=== PATIENT | female | born 1960 | race Caucasian/White ===

== ENCOUNTER 2020-06-21 15:44 | Outpatient (CLI) | payer BC, SELFPAY ==
--- NOTE | ~2020-06-21 | CT_ITS ---
EXAMINATION: CT sinus wo con EXAM DATE: 06/21/2020 16:23 INDICATION: M27.40 - Unspecified cyst of jaw on roof of mouth, looking for connection to sinus cavity . TECHNIQUE: Spiral CT of the sinuses was acquired in the axial plane. Coronal and sagittal reformatte d images were also reviewed. The dose-length product (DLP) for this examination was 288.76 mGy-cm. Iterative reconstruction (ASIR) was used as dose reduction technique. There is no prior study for co mparison. FINDINGS: Focal ovoid mass lesion left of midline just below the left maxilla measuring 2.2 x 1.5 cm, without any evidence of maxilla bone remodeling or invasion. Frontal sinuses are underdeveloped. T he sinuses are well aerated. The ostiomeatal units are patent. There is no sinus wall thickening. There is mild rightward nasal septal deviation. The mastoid air cells and middle ears are well ae rated. External auditory canals are patent. The orbits and visualized soft tissues are unremarkab le. IMPRESSION: Ovoid mass just below left maxilla without subjacent osseous change. Reviewed, dictated and finalized at location A. IMPRESSION: Ovoid mass just below left maxilla without subjacent osseous change .
== END 2020-06-21 15:45 | disposition home or self-care (01) ==
PROVIDERS: PCP Nurse Practitioner Family; Visit Provider Otolaryngology
DX: M27.40 Unspecified cyst of jaw (principal)
CPT/HCPCS: 70486

== ENCOUNTER 2020-07-10 01:08 | Outpatient (CLI) | payer BC, SELFPAY ==
[2020-07-10 19:47] LABS: SARS-CoV-2 RNA PCR Negative
== END 2020-07-10 01:09 | disposition home or self-care (01) ==
LOC: ANHCOVIDDT 01:08
PROVIDERS: PCP Nurse Practitioner Family; Visit Provider Otolaryngology
DX: Z01.818 Encounter for other preprocedural examination (principal); Z20.828 Contact with and (suspected) exposure to other viral communicable diseases
CPT/HCPCS: 87635; C9803; U0003

== ENCOUNTER 2020-07-10 08:58 | Outpatient (CLI) | payer BC, SELFPAY ==
--- NOTE | 2020-07-10 09:02 | ECG_ITS ---
Measurements Intervals [place] Rate: 73 P: 63 [place]: 155 QRS: 9 QRSD: 93 T: 54 QT: 398 QTc: 440 Interpretive Statements SINUS OR ECTOPIC ATRIAL RHYTHM POOR R WAVE PROGRESSION, ANTERIOR LEADS BORDERLINE ECG Electronically Signed On 07-10-2020 9:30:49 SYSTEMS CHECKOUT MECHANIC by Escobar Adhikari D.O.
== END 2020-07-10 08:59 | disposition home or self-care (01) ==
LOC: ANHSURGERY 09:02
PROVIDERS: PCP Nurse Practitioner Family; Visit Provider Otolaryngology
DX: Z01.818 Encounter for other preprocedural examination (principal); E78.5 Hyperlipidemia, unspecified; R94.31 Abnormal electrocardiogram [ECG] [EKG]
CPT/HCPCS: 93005

== ENCOUNTER 2020-07-13 00:36 | Day surgery (SDC) | payer BC, SELFPAY ==
[2020-07-04 13:34] VITALS: BMI 46.2
--- NOTE | 2020-07-12 16:06 | PM.IMHP ---
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 Recent imaging demonstrates an approximately 2 x 1.5 cm cyst within the maxilla more based on the left than right. The patient presents for operative excision. No new symptoms changes in medical history. Review of Systems Constitutional: Constitutional: Denies fatigue, Denies fever(s) and Denies lethargy Eyes: Eyes: Denies blurry vision and Denies change in vision ENT: Reports as per HPI Cardiovascular: Cardiovascular: Denies chest pain Respiratory: Respiratory: Denies cough Endocrine: Endocrine: Denies fatigue Hematologic/Lymphatic: Hematologic/Lymphatic: Denies easy bleeding, Denies easy bruising and Denies lymphadenopathy Allergic/Immunologic: Allergic/Immunologic: Denies seasonal rhinorrhea [facility] Social History Social History (Updated 06/11/20 @ 09:31 by Traci Tellez [facility]) Smoking packs per day: 1.5 Smoking cigarettes per day: 30.0 Years smoked: 43 Smoking pack-years: 64.50 Smoking status: Current every day smoker Tobacco type: cigarettes Second hand tobacco smoke exposure: Yes Spiritual care concerns: No Meds Home Medications and Allergies Home Medications Medication Instructions Recorded Confirmed Type acetaminophen 500 mg tablet 500 mg PO Q6H PRN 06/11/20 07/04/20 History albuterol sulfate 90 mcg/actuation 1 inh INHALATION Q4H PRN 06/11/20 07/04/20 History aerosol inhaler atorvastatin 20 mg tablet 20 mg PO DAILY 06/11/20 07/04/20 History cholecalciferol (vitamin D3) 125 500 mcg PO DAILY 06/11/20 07/04/20 History mcg (5,000 unit) capsule fluticasone fur. 100 mcg-umeclid 1 inh INHALATION DAILY 06/11/20 07/04/20 History 62.5 mcg-vilant 25 mcg inhalat.powder hyoscyamine sulfate 0.375 mg 0.375 mg PO Q12H 06/11/20 07/04/20 History tablet,extended release,12 hr meloxicam 15 mg tablet 15 mg PO DAILY 06/11/20 07/04/20 History multivitamin,rn-fqbb-[id number] 1 tablet PO DAILY 06/11/20 07/04/20 History tramadol 50 mg tablet 50 mg PO Q4H PRN 06/11/20 07/04/20 History zolpidem 10 mg tablet 10 mg PO HS 06/11/20 07/04/20 History Allergies Allergy/AdvReac Type Severity Reaction Status Date / Time celecoxib Allergy Severe nausea Verified 07/04/20 13:30 Penicillins Allergy Mild hives Verified 07/04/20 13:30 Sulfa (Sulfonamide Allergy Mild Nausea Verified 07/04/20 13:30 Antibiotics) Exam Const: General: cooperative, healthy appearing, comfortable, well developed and alert HENMT: Head: normal to inspection, normocephalic and atraumatic Ears: hearing grossly normal bilaterally, external ears normal, TM's normal bilaterally and EAC's normal General nose exam: Normal external nose present, Normal nares present, No nasal polyps present, Normal nasal mucous membranes and turbinates present and Normal septum present Face and sinus: normal facial exam Mouth: Yes lip normal, Yes tongue normal, Yes oropharynx normal and Yes other ( Left-sided maxillary hard palate cyst lesion) Teeth and gingiva: dentition normal and gingiva normal Throat: posterior oropharynx normal, tonsils normal and uvula midline Eyes: General: appearance normal, both eyes and all related structures Periorbital: periorbital findings normal Eyelids: eyelids normal Conjunctivae: conjunctivae normal Sclera: sclerae normal Neck: Neck: normal visual inspection, full ROM and no lymphadenopathy Thyroid: thyroid normal Lymphatic: no lymphadenopathy noted Resp: Effort & Inspection: normal respiratory effort and able to speak in complete sentences Cardio: Jugular venous distension: no JVD Neuro: Cranial nerves: Yes CN's II-XII intact bilaterally Assessment and Plan Assessment and plan (1) Cyst of maxilla: Code(s): M27.40 - Unspecified cyst of jaw Status: Acute Asse
[2020-07-13 07:26] VITALS: BP 162/96; PULSE 98; RESP 20; TEMP 36.4; O2SAT 96
[2020-07-13] MEDS: LACTATED RINGERS 1,000 ML 30 ML IV CONT (07:45)
--- NOTE | 2020-07-13 07:54 | WPDHPUPDATE1 ---
History and Physical Update Update Date/Time: 07/13/20 07:54 History and Physical has been reviewed, including an updated exam of the patient. There are NO changes in the patient's condition. Risks, benefits, and alternatives have been discussed and questions answered. Patient agrees to proceed with procedure.
--- NOTE | 2020-07-13 08:02 | WPDANESEPPF ---
Anes - Initial Pre Proc Eval Procedure: Operation Date: 07/13/20 09:15 Proposed Procedures p Excision Lesion Hard Palate - Adán Yeung MD Date/Time: 07/13/20 08:02 Surgeon: Adán Yeung MD Pre Op Diagnosis: Lesion Hard Palate Patient Data Age: 59 Gender: F Height: 5 ft 3 in Weight: 117.8 kg Last Vital Signs Temp 36.4 C L 07/13/20 07:26 Pulse 98 07/13/20 07:26 Resp 20 07/13/20 07:26 BP 162/96 H 07/13/20 07:26 Pulse Ox 96 07/13/20 07:26 Allergies Allergy/AdvReac Type Severity Reaction Status Date / Time celecoxib Allergy Severe nausea Verified 07/13/20 07:35 Penicillins Allergy Mild hives Verified 07/13/20 07:35 Sulfa (Sulfonamide Allergy Mild Nausea Verified 07/13/20 07:35 Antibiotics) Home Medications Medication Instructions Recorded Confirmed Type acetaminophen 500 mg tablet 500 mg PO Q6H PRN 06/11/20 07/04/20 History albuterol sulfate 90 mcg/actuation 1 inh INHALATION Q4H PRN 06/11/20 07/04/20 History aerosol inhaler atorvastatin 20 mg tablet 20 mg PO DAILY 06/11/20 07/04/20 History cholecalciferol (vitamin D3) 125 500 mcg PO DAILY 06/11/20 07/04/20 History mcg (5,000 unit) capsule fluticasone fur. 100 mcg-umeclid 1 inh INHALATION DAILY 06/11/20 07/04/20 History 62.5 mcg-vilant 25 mcg inhalat.powder hyoscyamine sulfate 0.375 mg 0.375 mg PO Q12H 06/11/20 07/04/20 History tablet,extended release,12 hr meloxicam 15 mg tablet 15 mg PO DAILY 06/11/20 07/04/20 History multivitamin,wq-sahm-qwxotlmj 1 tablet PO DAILY 06/11/20 07/04/20 History tramadol 50 mg tablet 50 mg PO Q4H PRN 06/11/20 07/04/20 History zolpidem 10 mg tablet 10 mg PO HS 06/11/20 07/04/20 History Patient hx anesthesia problems: none Family hx anesthesia problems: none PMFSH Past Medical History Medical History COPD (chronic obstructive pulmonary disease) Hyperlipidemia Hypertension Social History Social History Smoking packs per day: 1.5 Smoking cigarettes per day: 30.0 Years smoked: 43 Smoking pack-years: 64.50 Smoking status: Current every day smoker Tobacco type: cigarettes Second hand tobacco smoke exposure: Yes Spiritual care concerns: No Anes - Eval Final PreProcedure Day of Procedure 07/13/20 08:02 Patient weight: morbidly obese Heart: regular rate and rhythm Lungs: clear to auscultation Airway: Mallampati scale class II Neurological: alert and oriented Last oral intake: >/= 8 hours ASA classification: III Emergent: no Anesthetic plan: proceed Anesthesia type and monitoring: general ETT and standard monitoring Informed Consent: The patient's anesthetic plan and its attendant risks and benefits were discussed with the patient/family/POA. Questions were solicited and answers provided to the satisfaction of the patient/family/POA.
[2020-07-13] MEDS: ceFAZolin 2 GM/D5W 50 ML 2 GM/50 ML BAG IVPB (10:02)
[2020-07-13] MEDS: LIDO 1%/EPINEPHRINE 1:100,000 20 ML VIAL 3 ML INFILTRATE (10:11)
--- NOTE | 2020-07-13 10:42 | PM.PROC ---
Procedure Note - Detailed Date of procedure: 07/13/20 Pre-op diagnosis: Lesion Hard Palate Post-op diagnosis: same Procedure performed: excision of hard palate lesion Description of procedure: the patient was correctly identified and consent was verified in the preoperative holding area. The patient was then brought to the operating room and a time-out was performed. General anesthesia was induced an endotracheal tube was secured the patient's airway and taped the right. The patient was then prepped and positioned for the aforementioned procedure. The lesion was visible in the hard palate measuring approximately 2 x 3 cm. A Bovie electrocautery device was utilized to remove a small portion of the excess mucosa. A curettage was then performed dissecting around the sac of the cyst. The cyst was then excised with firm pressure irrigation and suction were then performed within the wound removing remaining cyst contents. Excess Mucosa was again removed with needle-tip protected Bovie. Hemostasis was noted be excellent but a small piece of Surgicel was placed within the cyst cavity. This marked end of the procedure and care of the patient was turned over to Anesthesiology. I performed all dictated portions of the procedure. Anesthesia: GLMA Surgeon: Adán Yeung MD Estimated blood loss (mL): 5 Complications: No immediate complications Condition: stable Disposition: PACU
[2020-07-13 10:45] VITALS: BP 157/83; PULSE 82; RESP 20; O2SAT 100
[2020-07-13 11:00] VITALS: BP 142/83; PULSE 80; RESP 12; O2SAT 92
[2020-07-13 11:09] VITALS: BP 154/82; PULSE 88; RESP 14
[2020-07-13 11:35] VITALS: BP 146/72; PULSE 72; RESP 14
== END 2020-07-13 12:04 | disposition home or self-care (01) ==
PROVIDERS: PCP Nurse Practitioner Family; Visit Provider Otolaryngology
PROC: (CPT 40810; principal; 2020-07-13 09:15)
DX: K13.79 Other lesions of oral mucosa (principal); I10 Essential (primary) hypertension; E78.5 Hyperlipidemia, unspecified; J44.9 Chronic obstructive pulmonary disease, unspecified; F17.210 Nicotine dependence, cigarettes, uncomplicated; E66.01 Morbid (severe) obesity due to excess calories; Z68.42 Body mass index [BMI] 45.0-49.9, adult
CPT/HCPCS: 42104; 88305; 88342; J0330; J0690; J1100; J2250; J2405; J2704; J3010; J7120

== ENCOUNTER 2024-04-03 15:06 | Inpatient (IN) | payer BC, SELFPAY ==
[2024-04-03] VITALS (29 sets, daily range): BP systolic 45–165; BP diastolic 21–124; PULSE 73–156; RESP 15–30; TEMP 36.3–36.9; O2SAT 97–100; BMI 42.3
--- NOTE | ~2024-04-03 | CT_ITS ---
EXAMINATION: CT chest abdomen pelvis wo con DATE: 04/17/2024 18:39 INDICATION: Elevated white blood cell count. COPD. Acute and chronic respiratory failure. Hypoxia. Tr ansaminitis. Sepsis. Left pleural effusion. TECHNIQUE: Computed tomography (CT) of the chest, abdomen, and pelvis was performed without intraveno us contrast. Automated exposure control and iterative reconstruction technique were employed. Exam do se: 1848.67 mGy-cm total exam DLP. COMPARISON: None FINDINGS: CHEST CT: There are moderate emphysematous changes of the lungs. There are moderate bilateral pleural effusions with compressive atelectasis in both lower lobes and d ependent atelectasis of the left upper lobe and middle lobe. Cardiomegaly. No pericardial effusion. No hilar or mediastinal mass lesion or lymphadenopathy. There is thoracic aortic calcification no thoracic aortic aneurysm. ABDOMEN/PELVIS CT: There are scattered subcentimeter hepatic hypoattenuating lesions, nonspecific. These might represent cysts or hemangiomas or hamartomas. Metastatic disease is not excluded. The gallbladder thickening or pericholecystic fluid or fat stranding pancreatic duct dilatation is no avis. No pancreatic mass lesion or calcification. Normal splenic size. Severely atrophic left kidney. There appears to be compensatory hypertrophy of the right kidney. Ther e is a pinpoint nonobstructing calculus of the left kidney. No right urinary tract calculus or hydrou reteronephrosis. There is a large [place] ventral abdominal wall parastomal hernia containing nonobstructed nonstran gulated small bowel and colon. No bowel obstruction is evident. No intraperitoneal free air. Status post appendectomy. Status post hysterectomy. No suspicious osteolytic or osteoblastic lesions. IMPRESSION: Moderate emphysema Moderate bilateral pleural effusions with compressive atelectasis of both lower lobes and dependent a telectasis of left upper and middle lobes Cardiomegaly Scattered subcentimeter hepatic hypoattenuating nonspecific lesions; different diagnosis as mentioned above. MR imaging may be helpful for further evaluation if clinically appropriate Severely atrophic left kidney with pinpoint calculus Status post appendectomy Status post hysterectomy Very large [place] ventral abdominal wall peristomal hernia with herniated nonobstructed nonstrangu lated small and large bowel Reviewed, dictated and finalized at Location A. Reviewed, dictated and finalized at location J. IMPRESSION: Moderate emphysema Moderate bilateral pleural effusions with compressive atelectasis of both lower lobes and dependent atelectasis of left upper and middle lobes Cardiomegaly Scattered subcentimeter hepatic hypoattenuating nonspecific lesions; different diagnosis as mentioned above. MR imaging may be helpful for further evaluation if clinically appropriate Severely atrophic left kidney with pinpoint calculus Status post appendectomy Status post hysterectomy Very large [place] ventral abdominal wall peristomal hernia with herniated no nobstructed nonstrangulated small and large bowel
--- NOTE | ~2024-04-03 | US_ITS ---
EXAMINATION: US renal BI DATE: 04/05/2024 14:01 INDICATION: Acute kidney injury. TECHNIQUE: Multiple ultrasound grayscale images of the kidneys were obtained. COMPARISON: Chest CT 04/03/2024 FINDINGS: The right kidney measures 14.2 x 6.0 x 5.4 cm. The left kidney is not visualized. There is no hydrone phrosis. The bladder is decompressed by a Shell catheter. IMPRESSION: 1. Normal right kidney. No hydronephrosis. 2. Left kidney not visualized. Note that the prior CT demonstrates moderate atrophy of left kidney wi thout hydronephrosis. Reviewed, dictated and finalized at location A. IMPRESSION: 1. Normal right kidney. No hydronephrosis. 2. Left kidney not visualized. Note that the prior CT demonstrates moderate atr ophy of left kidney without hydronephrosis.
--- NOTE | ~2024-04-03 | CT_ITS ---
EXAMINATION: CT brain wo con DATE: 04/14/2024 22:13 INDICATION: Left MD weakness. TECHNIQUE: Computed tomography (CT) of the head was performed without intravenous contrast. Sagittal and coronal reconstructions were performed. The mA was adjusted according to patient size. Iterative reconstruction technique was employed. The dose-length product was 605.33 mGy-cm. COMPARISON: head CT dated 04/03/24 FINDINGS: No acute intracranial hemorrhage, acute infarction or abnormal extra axial fluid collection. There is mild scattered white matter hypoattenuation consistent with chronic small vessel ischemic disease. V entricles are normal and symmetric. No mass/mass effect. The orbits, paranasal sinuses and mastoid ai r cells are normal. IMPRESSION: 1. Mild scattered white matter hypoattenuation consistent with chronic small vessel ischemic disease. No acute intracranial process. Reviewed, dictated and finalized at location A. IMPRESSION: 1. Mild scattered white matter hypoattenuation consistent with chronic small ve ssel ischemic disease. No acute intracranial process.
--- NOTE | ~2024-04-03 | XR_ITS ---
EXAMINATION: XR chest 1V portable DATE: 04/09/2024 09:30 INDICATION: Pulmonary edema. TECHNIQUE: A single frontal view of the chest was obtained. COMPARISON: Chest single view 04/07/2024, chest CT 04/03/2024 FINDINGS: There are small pleural effusions. There are airspace opacities at the lung bases. No pneum othorax. Cardiomegaly is noted. IMPRESSION: 1. Small pleural effusions with worsening on the right. 2. Worsened airspace opacities at the lung bases, consistent with atelectasis or less likely pneumoni a. 3. Cardiomegaly. Reviewed, dictated and finalized at location A. IMPRESSION: 1. Small pleural effusions with worsening on the right. 2. Worsened airspace opacities at the lung bases, consistent with atelectasis o r less likely pneumonia. 3. Cardiomegaly.
--- NOTE | ~2024-04-03 | XR_ITS ---
Portable chest x-ray Comparison: 04/06/2024 Clinical History: Respiratory failure Findings: Endotracheal tube and NG tube are in satisfactory positions. There is mild bibasilar hazy airspace disease. Possible minimal pleural effusions. Cardiomediastinal silhouette is stable. Bones and soft tissues are unremarkable. Impression: Mild bibasilar pulmonary edema and suspected minimal pleural effusions. Correlate clinically for pneu monia. Support tubes, as above. Reviewed, dictated and finalized at location . Impression: Mild bibasilar pulmonary edema and suspected minimal pleural effusions. Correla te clinically for pneumonia. Support tubes, as above.
--- NOTE | ~2024-04-03 | XR_ITS ---
EXAMINATION: XR chest 2V DATE: 04/11/2024 09:06 INDICATION: Shortness of breath TECHNIQUE: frontal and lateral views of the chest were obtained. COMPARISON: Chest radiograph dated 04/09/2024 FINDINGS: Again seen are opacities in the bilateral lower lung zones with blunting at the costophrenic angles c onsistent with small bilateral pleural effusions and associated bibasilar atelectasis versus pneumoni a. No pulmonary edema or pneumothorax. Cardiomegaly. Distal tip of a catheter projecting over the pr oximal left upper arm near the axilla. IMPRESSION: 1. Persistent small bilateral pleural effusions and associated bibasilar atelectasis versus less like ly pneumonia. 2. Cardiomegaly. Reviewed, dictated and finalized at location A. IMPRESSION: 1. Persistent small bilateral pleural effusions and associated bibasilar atelec tasis versus less likely pneumonia. 2. Cardiomegaly.
--- NOTE | ~2024-04-03 | XR_ITS ---
Portable chest x-ray Comparison: 04/05/2024 Clinical History: Respiratory failure Findings: Endotracheal tube and NG tube are in satisfactory use. There is bibasilar hazy airspace di sease and probable minimal pleural effusions. Cardiomediastinal silhouette is stable. Bones and soft tissues are unremarkable. Impression: Probable mild bibasilar pulmonary edema/atelectasis with minimal pleural effusions. Correlate clinica lly for pneumonia. Support tubes, as above. Reviewed, dictated and finalized at location . Impression: Probable mild bibasilar pulmonary edema/atelectasis with minimal pleural effusi ons. Correlate clinically for pneumonia. Support tubes, as above.
--- NOTE | ~2024-04-03 | XR_ITS ---
Portable chest x-ray Comparison: 04/04/2024 Clinical History: Respiratory failure Findings: Endotracheal tube and NG tube are in satisfactory positions. Minimal bibasilar pulmonary h aziness present. Cardiomediastinal silhouette is stable. Bones and soft tissues are unremarkable. Impression: Possible minimal bibasilar pulmonary edema. Support tubes, as above. Reviewed, dictated and finalized at location . Impression: Possible minimal bibasilar pulmonary edema. Support tubes, as above.
--- NOTE | ~2024-04-03 | CT_ITS ---
EXAMINATION: CT brain wo con DATE: 04/03/2024 18:57 INDICATION: Cardiac arrest. Hypoxic. TECHNIQUE: Computed tomography (CT) of the head was performed without intravenous contrast. The mA wa s adjusted according to patient size. Iterative reconstruction technique was employed. Exam dose: 60 5.33 mGy-cm total exam DLP. COMPARISON: None FINDINGS: No intracranial mass lesion or hemorrhage or cerebrovascular accident, midline shift or mas s effect. Bilateral carotid siphon internal carotid artery calcification. Mild left vertebral artery calcificat ion. Normal ventricular size. No subdural or epidural hematoma. The orbits are unremarkable. The mastoid air cells and paranasal sinuses are normally developed and aerated with the exception of mild patchy soft tissue ethmoid air cells. No fracture or bone destruction of the cranial vault.. IMPRESSION: Cerebral atherosclerosis No acute intracranial finding Reviewed, dictated and finalized at Location A. Reviewed, dictated and finalized at location J.
--- NOTE | ~2024-04-03 | XR_ITS ---
XR abdomen gastric tube insert DATE: 04/03/2024 15:40 INDICATION: NG tube placement TECHNIQUE: Portable supine AP view on 04/03/2024 at 1528 hours COMPARISON: None FINDINGS: NG tube in upper stomach, tip overlying gastric fundus, directed cephalad, with the proxima l side port approximately 11.5 cm distal to the diaphragmatic hiatus. Nonspecific bowel gas pattern. IMPRESSION: NG tube in stomach Reviewed, dictated and finalized at Location A. Reviewed, dictated and finalized at location J. IMPRESSION: NG tube in stomach
--- NOTE | ~2024-04-03 | XR_ITS ---
EXAMINATION: XR foot LT min 3V DATE: 04/14/2024 15:02 INDICATION: Pain, swelling and erythema at the left great toe TECHNIQUE: Dorsoplantar, two oblique and lateral views of the left foot were obtained. COMPARISON: None. FINDINGS: Bone alignment is normal. No fracture. Polyarticular osteoarthritis, moderate severity at the talonav icular articulation and mild at many of the remaining joints throughout the left foot. No definitive cortical erosion or periosteal reaction to suggest osteomyelitis. Small Achilles and plantar calcanea l spurs. Heterotopic ossicle posterolateral to the ankle. There is sheetlike dystrophic calcification in the superficial soft tissues posterior to the distal calf. IMPRESSION: 1. No definitive osteolysis to suggest osteomyelitis or other acute osseous abnormality. 2. Polyarticular osteoarthritis, moderate at the talonavicular articulation and mild at many of the r emaining joints in the left foot. 3. Nonspecific sheetlike dystrophic calcification in the superficial soft tissues posterior to the di stal calf raising possibility of dermatomyositis. Differential would include possible venous insuffic iency or heterotopic ossification related to a chronic insult. Reviewed, dictated and finalized at location A. IMPRESSION: 1. No definitive osteolysis to suggest osteomyelitis or other acute osseous abn ormality. 2. Polyarticular osteoarthritis, moderate at the talonavicular articulation and mild at many of the remaining joints in the left foot. 3. Nonspecific sheetlike dystrophic calcification in the superficial soft tissu es posterior to the distal calf raising possibility of dermatomyositis. Differe ntial would include possible venous insufficiency or heterotopic ossification r elated to a chronic insult.
--- NOTE | ~2024-04-03 | XR_ITS ---
Portable chest x-ray Comparison: 04/03/2024 Clinical History: Respiratory failure Findings: Endotracheal tube and NG tube are in satisfactory positions. There is mild bibasilar hazin ess and possible minimal left pleural effusion. Cardiomediastinal silhouette is stable. Bones and so ft tissues are unremarkable. Impression: Mild bibasilar pulmonary edema with possible minimal left pleural effusion. Support tubes, as above. Reviewed, dictated and finalized at location . Impression: Mild bibasilar pulmonary edema with possible minimal left pleural effusion. Support tubes, as above.
--- NOTE | ~2024-04-03 | XR_ITS ---
XR chest ET placement DATE: 04/03/2024 15:40 INDICATION: Cardiac arrest. Postintubation. TECHNIQUE: Portable supine AP view on 04/03/2024 at 1525 hours COMPARISON: 10/22/2004 2 view chest FINDINGS: ET tube 5.3 cm above ed. NG tube in stomach. No central lines. Cardiomegaly, pulmonary vascular congestion and redistribution, consistent with mild congestive heart failure. No pulmonary consolidation no significant pleural effusion or any pneumothorax is noted. IMPRESSION: ET and NG tubes in satisfactory position Cardiomegaly, pulmonary vascular congestion and redistribution, consistent with congestive heart fail ure Reviewed, dictated and finalized at Location A. Reviewed, dictated and finalized at location J. IMPRESSION: ET and NG tubes in satisfactory position Cardiomegaly, pulmonary vascular congestion and redistribution, consistent with congestive heart failure
--- NOTE | ~2024-04-03 | XR_ITS ---
EXAMINATION: XR chest 1V portable DATE: 04/14/2024 06:11 INDICATION: Chest pain. Dyspnea. TECHNIQUE: A single frontal view of the chest was obtained. COMPARISON: Chest 2 views 04/11/2024 FINDINGS: There are small pleural effusions. There are airspace opacities at the lung bases. No pneum othorax. Cardiomegaly is noted. IMPRESSION: 1. Stable small pleural effusions. 2. Stable airspace opacities at the lung bases, consistent with atelectasis versus pneumonia. 3. Cardiomegaly. Reviewed, dictated and finalized at location A. IMPRESSION: 1. Stable small pleural effusions. 2. Stable airspace opacities at the lung bases, consistent with atelectasis jessica saloni pneumonia. 3. Cardiomegaly.
--- NOTE | ~2024-04-03 | XR_ITS ---
EXAMINATION: XR barium swallow modified DATE: 04/08/2024 11:48 INDICATION: Respiratory failure. TECHNIQUE: The patient was given barium-containing material of multiple consistencies to swallow by t quentin speech pathologist while I performed fluoroscopy. Fluoroscopy exposure time was 1.5 minutes. The n umber of fluoroscopy images saved to the PACS was 1. Dose-area product was 1.31 Gy-cm^2. FINDINGS: The oral stage, pharyngeal stage, and cervical/esophageal stage of the swallow are normal. IMPRESSION: 1. Normal modified barium swallow. 2. Please refer to the speech therapy report for recommendations. Reviewed, dictated and finalized at location A.
--- NOTE | ~2024-04-03 | US_ITS ---
EXAMINATION: US venous doppler [facility] DATE: 04/05/2024 14:00 INDICATION: Acute pulmonary emboli. TECHNIQUE: Grayscale ultrasound images without and with compression and Doppler ultrasound images of the bilateral lower extremity veins were obtained. COMPARISON: None. FINDINGS: The visualized portions of right common femoral vein, profunda (deep) femoral vein, femoral vein, pop liteal vein, peroneal veins, posterior tibial veins, and greater saphenous vein outflow are patent. The visualized portions of left common femoral vein, profunda femoral vein, femoral vein, popliteal v ein, peroneal veins, posterior tibial veins, and greater saphenous vein outflow are patent. IMPRESSION: 1. No deep venous thrombosis. Reviewed, dictated and finalized at location A.
--- NOTE | ~2024-04-03 | CT_ITS ---
EXAMINATION: CTA chest PE protocol DATE: 04/03/2024 18:57 INDICATION: Hypoxia. Cardiac arrest. TECHNIQUE: Computed tomography angiography (CTA) of the chest was performed with 100 mL Omnipaque-350 intravenous contrast timed to evaluate the pulmonary arteries. Coronal maximum intensity projection 3D-reconstructions were created by the technologist. Automated exposure control and iterative reconst ruction technique were employed. Exam dose: 1115.43 mGy-cm total exam DLP. COMPARISON: 04/03/2024 portable AP chest FINDINGS: ET and NG tubes are present. There is diagnostic contrast enhancement of the pulmonary arteries. There are scattered occasional sm all peripheral left lower lobe pulmonary emboli. No hilar or mediastinal mass lesion or lymphadenopathy. No thoracic aortic aneurysm or dissection. No pericardial effusion.. Borderline heart size. There is reflux of contrast material into the inferior vena cava consistent wi th some cardiac dysfunction which in conjunction with moderate right and left pleural effusions is co nsistent with some congestive heart failure. There is moderate emphysema. Focal areas of minimal discoid atelectasis at the middle lobe, dependent left upper lobe Small scarred left kidney; the right kidney is nearly completely excluded from the [id number]. No suspicious osteolytic or osteoblastic lesions are noted. IMPRESSION: Occasional small left lower lobe subsegmental pulmonary emboli Congestive changes including moderate right and small left pleural effusions Reviewed, dictated and finalized at Location A. Reviewed, dictated and finalized at location J.
--- NOTE | 2024-04-03 15:10 | ECG_ITS ---
Test Date: 2024-04-03 15:12:18 Measurements Intervals [place] Rate: 141 P: 0 [place]: 0 QRS: 262 QRSD: 111 T: 59 QT: 302 QTc: 463 Interpretive Statements ATRIAL FIBRILLATION WITH RAPID VENTRICULAR RESPONSE INCOMPLETE RIGHT BUNDLE BRANCH BLOCK LEFT AXIS DEVIATION NONSPECIFIC T-WAVE ABNORMALITY ABNORMAL ECG No previous ECG available for comparison Electronically Signed On 04-04-2024 17:01:20 CDT by Syed Watson M.D.
[2024-04-03] MEDS: ETOMIDATE 20 MG/10 ML AMPUL IV PUSH (15:14)
[2024-04-03] MEDS: ROCURONIUM BROMIDE 50 MG/5 ML VIAL 100 MG IV PUSH (15:15)
--- NOTE | 2024-04-03 15:21 | ED.CPR ---
HPI - CPR General Chief Complaint: Cardiac Arrest/CPR Stated Complaint: cardiac arrest Time Seen by Provider: 04/03/24 15:19 History of Present Illness HPI narrative: 63-year-old female presenting with cardiac arrest. History is obtained from EMS. Patient was complaining of shortness of breath and is attempting to put on her BiPAP when she called out to her to call 911. She then became unresponsive. When EMS arrived she was in asystole. She went in and out of asystole and PEA in the december got pulses back and patient had spontaneous respiratory effort. Unfortunately, she again lost her pulses and ACLS was initiated. On arrival, she remains pulseless with Igel in place. She has received 5 doses of epi. Related Data Home Medications Medication Instructions Recorded Confirmed atorvastatin 20 mg tablet 20 mg PO DAILY 06/11/20 04/03/24 multivitamin,ux-mwex-jmwervhp 1 tablet PO DAILY 06/11/20 04/03/24 (Complete Multivitamin tablet) zolpidem 10 mg tablet 10 mg PO HS 06/11/20 04/03/24 Xopenex HFA 2 inh PO Q4-5H PRN sob 04/03/24 04/03/24 cyclobenzaprine 10 mg tablet 10 mg PO DAILY PRN muscle relaxant 04/03/24 04/03/24 meloxicam 15 mg tablet 15 mg PO QAM 04/03/24 04/03/24 tramadol 50 mg tablet 50 mg PO TID 04/03/24 04/03/24 Allergies Allergy/AdvReac Type Severity Reaction Status Date / Time Penicillins Allergy Mild hives Verified 04/04/24 08:16 celecoxib AdvReac Severe nausea Verified 04/04/24 09:23 Sulfa (Sulfonamide AdvReac Mild Nausea Verified 04/04/24 09:23 Antibiotics) Review of Systems Review of Systems: ROS unobtainable: Yes unobtainable due to medical condition and unobtainable due to mental status [facility] Past Medical History Medical History (Updated 04/06/24 @ 14:30 by Unique Asencio MD) COPD (chronic obstructive pulmonary disease) GERD (gastroesophageal reflux disease) Hyperlipidemia Hypertension Insomnia Morbid obesity Obstructive sleep apnea treated with BiPAP Tobacco abuse disorder Vitamin D deficiency Surgical History Surgical History History of arthroscopy of both knees History of ileostomy (~2021) due to fistula repair and she chose not to reverse ostomy History of oral surgery (07/2020) Excision of cyst from the hard palate History of total abdominal hysterectomy and bilateral salpingo-oophorectomy (~1996) Family History Family History Mother Diabetes mellitus Hypertension Hyperlipidemia Father Medical history unknown Social History Social History Social History: The patient is . She smoked 1.5 packs per day since she was a teenager but quit December 2023. She has no known history of alcohol use or illicit substance use. She has 1 son. Her has bilat lower ext amputations and is wheelchair dependant. She also raised her nephew when her twin sister mysteriously disapeared over 30 years ago.she drinks rarely in moderation. Code status: Full Code Surrogate decision maker: Smoking packs per day: 2 Smoking cigarettes per day: 40.0 Years smoked: 45 Smoking pack-years: 90.00 Smoking status: Former smoker Tobacco type: cigarettes Second hand tobacco smoke exposure: Yes Smoking end date: 01/29/24 Alcohol intake: never Substance use: never Spiritual care concerns: No Exam Narrative: GENERAL: Unresponsive with Rod in place with chest compressions ongoing HEAD: Normocephalic, atraumatic. EYES: PERRLA and EOMI. ENT: Igel in place NECK: Supple. CHEST: Igell in place, severely diminished breath sounds bilaterally with poor air movement HEART: pulseless ABDOMEN: Soft, ostomy in place EXTREMITIES: No edema. SKIN: Warm, dry, no rash. NEURO: unresponsive PSYCH: unresponsive Course Vital Signs Vital signs: Vital Signs Temperature 97.4 F L 04/03/24 15:11
--- NOTE | 2024-04-03 15:30 | PC.NURSE ---
ROSC achieved at 1506 pulse check
[2024-04-03 15:42] LABS: Alveolar/Arterial O2 Gradient 231.2 mmHg; Base Excess ABG 0.9 mEq/l (+/-2.0); Carboxyhemoglobin 1.1 % THb (0-2.0); Fractional Inspired Oxygen 100 %; HCO3 ABG 32.8 mEq/l (22.0-26.0); Methemoglobin ABG 0.2 %THb (0-1.5); Oxygen Content ABG 17.9 %vol (16.0-22.0); Oxygen Saturation ABG 99.7 % (95.0-100.0); Oxyhemoglobin 98.5 % THb (90.0-100.0); Reduced Hemoglobin 0.2 %THb (0-5.0); Total Hemoglobin 12.2 g/dL (12.0-18.0)
[2024-04-03] MEDS: ALBUTEROL SULFATE NEB 2.5 MG/3 ML INH 10 MG INHALATION ×3 (15:50→19:59)
[2024-04-03] MEDS: IPRATROPIUM BR 0.02% INH SOLN 0.5 MG/2.5 ML VIAL INHALATION ×3 (15:51→19:59)
[2024-04-03 16:06] LABS: pH ABG 7.126 (7.350-7.450)
[2024-04-03 16:07] LABS: Device VENTILATOR; PCO2 ABG 101.8 mmHg (35.0-45.0); Site Drawn RIGHT RADIAL
[2024-04-03 16:07] LABS: Basophils Percent Auto 0.3 % (0.2-1.2); Eosinophils Percent Auto 0.1 % (0-4.4); Hematocrit 37.8 % (37.0-47.0); Immature Granulocyte Absolute 0.33 K/mm3 (0.00-0.031); Immature Granulocyte Percent A 2.4 % (0-0.5); Lymphocytes Absolute Auto 0.85 K/mm3 (0.9-3.2); Lymphocytes Percent Auto 6.3 % (18.3-44.2); Mean Corpuscular HGB Conc 29.1 g/dl (32-36); Mean Corpuscular Hemoglobin 32.4 pg (26-34); Mean Corpuscular Volume 111.2 fl (80-100); Mean Platelet Volume 11.5 fl (7.4-10.4); Monocytes Absolute Auto 0.6 K/mm3 (0.1-0.6); Monocytes Percent Auto 4.5 % (2.6-8.5); Neutrophils Absolute Auto 11.7 K/mm3 (1.3-6.7); Neutrophils Percent Auto 86.4 % (45.5-73.1); Platelet Count Result 200 k/mm3 (150-375); Red Cell Distribution Width 13.1 % (11.5-14.5); White Blood Count 13.5 K/mm3 (4.5-10.0)
[2024-04-03 16:08] LABS: Arterial Blood Gas PEEP 5 cmH2O; Arterial Blood Gas Tidal Volume 400 ml; Arterial Blood Gas Vent Mode CMV; Arterial Blood Gas Ventilator rate 24 /MIN
[2024-04-03 16:18] LABS: INR 1.5; Prothrombin Time 18.3 Seconds (11.1-14.7)
[2024-04-03 16:19] LABS: Lactic Acid Reflex 9.1 mmol/L (0.7-2.0); Partial Thromboplastin Time 28.7 Seconds (22.3-36.8)
[2024-04-03 16:21] LABS: Albumin Level 3.8 g/dL (3.5-5.1); Alkaline Phosphatase 83 U/L (38-126); Aspartate Amino Transferase 705 U/L (14-36); Bilirubin,Total 1.2 mg/dL (0.2-1.3); Blood Urea Nitrogen 21 mg/dL (7-17); Calcium 9.2 mg/dL (8.4-10.2); Carbon Dioxide > 40 mmol/L (22-30); Chloride 91 mmol/L (98-107); Estimated Glomerular Filt Rate > 60; Glucose 120 mg/dL (65-110); Magnesium 2.3 mg/dL (1.6-2.3); Potassium 4.6 mmol/L (3.4-5.0); Sodium 145 mmol/L (137-145)
[2024-04-03 16:28] LABS: Alanine Aminotransferase 467 U/L (6-35)
[2024-04-03 16:31] LABS: NT Pro B Type Natriuretic Pept 8250 pg/mL (19.9-100); Troponin I 0.047 ng/mL (0.000-0.034)
[2024-04-03] MEDS: methylPREDNISolone SOD SUCC 125 MG VIAL IV PUSH (17:00)
[2024-04-03] MEDS: SODIUM CHLORIDE 0.9% IV 1,000 ML 999 ML IV CONT ×2 (17:00→20:13)
[2024-04-03] MEDS: FENTANYL 2,500MCG/NS250ML(*CRX 2,500 MCG/250 ML BAG IV CONT (18:17)
--- NOTE | 2024-04-03 18:55 | PC.NURSE ---
ERP attempted central line to right side of neck unsuccessful. Central line then place to right groin
[2024-04-03 19:05] LABS: Reflex Lactic Acid Yes or No Add Lactic
--- NOTE | 2024-04-03 19:12 | PC.NURSE ---
fentanyl titrated to 75mcg per hr for sedation. Pt now awake for arms to pull at ETT
--- NOTE | 2024-04-03 19:44 | PC.NURSE ---
Pt still awake and able to pull at ETT. Fentanyl titrated to 150 mcg/hr per amina Asencio.
[2024-04-03] MEDS: MIDAZOLAM HCL (*CRX) 2 MG/2 ML VIAL 5 MG IV PUSH (19:53)
[2024-04-03 20:03] LABS: Lactic Acid 10.2 mmol/L (0.7-2.0)
--- NOTE | 2024-04-03 20:04 | ECG_ITS ---
Test Date: 2024-04-03 20:04:05 Measurements Intervals [place] Rate: 60 P: -46 [place]: 152 QRS: 14 QRSD: 90 T: 32 QT: 433 QTc: 434 Interpretive Statements SINUS RHYTHM LOW QRS VOLTAGE IN PRECORDIAL LEADS [QRS DEFLECTION < 1.0 mV IN CHEST LEADS] BORDERLINE ECG No previous ECG available for comparison Electronically Signed On 04-04-2024 15:29:15 CDT by Syed Watson M.D.
[2024-04-03 20:07] LABS: Alveolar/Arterial O2 Gradient 134.6 mmHg; Fractional Inspired Oxygen 60 %; HCO3 ABG 34.2 mEq/l (22.0-26.0); Oxygen Content ABG 20.8 %vol (16.0-22.0); Oxygen Saturation ABG 99.3 % (95.0-100.0); Oxyhemoglobin 98.3 % THb (90.0-100.0); PO2 ABG 213.6 mmHg (80.0-100.0); PO2 FiO2 Ratio Arterial Blood 3.56 %; Total Hemoglobin 14.7 g/dL (12.0-18.0)
[2024-04-03 20:08] LABS: pH ABG 7.292 (7.350-7.450)
[2024-04-03 20:09] LABS: Device VENTILATOR; Modified Allen's Test Pass; PCO2 ABG 72.4 mmHg (35.0-45.0); Site Drawn RIGHT RADIAL
[2024-04-03 20:10] LABS: Arterial Blood Gas PEEP 5 cmH2O; Arterial Blood Gas Tidal Volume 350 ml; Arterial Blood Gas Vent Mode CMV; Arterial Blood Gas Ventilator rate 30 /MIN
[2024-04-03 20:16] LABS: Troponin I 0.194 ng/mL (0.000-0.034)
[2024-04-03 20:26] LABS: Influenza A QL RT-PCR Negative (Negative); Influenza B QL RT-PCR Negative (Negative); RSV RNA, RT-PCR Negative (Negative); SARS-CoV-2 RNA PCR Negative (Negative)
[2024-04-03 20:27] LABS: Add Urine Microscopic? YES; Appearance Urine Clear (Clear); Bacteria Urine None Seen /hpf; Bilirubin Urine 1+ (Negative); Blood Urine Trace (Negative); Color Urine Dark Yellow (Yellow); Glucose Urine UA Negative (Negative); Ketones Urine Negative (Negative); Leukocyte Esterase Ur Trace LEU/UL (Negative); Mucus Urine Present /lpf; Need Manual Microscopic Reviewed; Nitrate Urine Negative (Negative); Non Pathogenic Casts >20; Protein Urine 2+ mg/dL (Negative); Specific Grav Ur 1.032 (1.001-1.035); Squamous Epithelial Cell Urine Occasional /hpf (Few); WBC Urine 21-50 /hpf (0-3); White Blood Cell Casts Urine Present /lpf; pH Urine 5.5 (5.0-9.0)
[2024-04-03] MEDS: MIDAZOLAM 100MG/NS 100ML(*CRX) 100 MG/100 ML BAG IV CONT (21:03)
[2024-04-03] MEDS: CEFEPIME 2 GM/NS 50 ML 2 GM/50 ML BAG IVPB (21:08)
--- NOTE | 2024-04-03 21:08 | PM.IMHP ---
H&P: HPI History of Present Illness Date/Time: 04/03/24 21:08 Chief Complaint: Respiratory distress followed by collapse Narrative: 63-year-old female with past medical history morbid obesity, COPD, obstructive sleep apnea on BiPAP, hyperlipidemia, GERD vitamin-D deficiency and chronic insomnia who presented to the ER via EMS after witnessed respiratory distress followed by cardiac arrest. Patient was having trouble breathing but time patient's brought her CPAP to her she was unresponsive. When EMS arrived on the scene patient was in PDA. Patient received 5 rounds of epinephrine in the field and was placed on a Rod. Patient had a laryngeal airway placed. On arrival to the ER patient was still pulseless and received 2 amps of bicarb and another amp of epinephrine and was intubated. Patient had return of ROSC. Labs demonstrated acute on chronic hypercapnic respiratory failure. Patient was initially placed on tidal volumes 400 rate of 24 peep of 5. Repeat ABG demonstrated improved pH but patient was having high peak pressures. Although high peak pressures correlated with the patient was return of consciousness and agitation. Chest x-ray did not demonstrate any acute cardiopulmonary process. CTA demonstrated small left lower lobe subsegmental pulmonary emboli with congestive changes concerning for pulmonary edema with moderate right and small left pleural effusion. Chest x-ray was personally reviewed and demonstrated ET tube with appropriate position. NG tube also was in appropriate position on my review. Patient's case was discussed with the her emergency room physician. I recommended vent changes and sedation changes were made. The patient did receive 125 mg of IV Solu-Medrol and 3 hour long nebulizer treatments. Patient's initial troponin was elevated to 0.047 and repeat troponin was 0.194. BMP was elevated a 1250. She had transaminitis, severe lactic acidosis, mildly elevated white count and stable hemoglobin. ER provider attempted her right IJ but was unable to obtain access and patient subsequent placement of a right femoral line placed. The patient's son is at bedside and reports the patient has been in and out of [facility] since early this year due to UTI and recurrent COPD/recurrent hypercapnea. She is currently on a CPAP at home but is awating delivery of a Bipap. She gets discharged and is good for a few days but slowly becomes mor e confused and gets readmitted. No history of prior intubation reported. She woke up form sleep tonight and to her to call for help. no fevers. chronic dispnea on exertion and can only walk a few feet without rest. independant in activities. She quit smoking in December 2023. Review of Systems Review of Systems: ROS unobtainable: Yes unobtainable due to endotracheal tube PMFSH Past Medical History Medical History (Updated 04/04/24 @ 04:01 by Inga Stapleton DO) COPD (chronic obstructive pulmonary disease) GERD (gastroesophageal reflux disease) Hyperlipidemia Hypertension Insomnia Morbid obesity Obstructive sleep apnea treated with BiPAP Tobacco abuse disorder Vitamin D deficiency Surgical History Surgical History (Updated 04/04/24 @ 05:06 by Inga Stapleton DO) History of arthroscopy of both knees History of ileostomy (~2021) due to fistula repair and she chose not to reverse ostomy History of oral surgery (07/2020) Excision of cyst from the hard palate History of total abdominal hysterectomy and bilateral salpingo-oophorectomy (~1996) Family History Family History Mother Diabetes mellitus Hypertension Hyperlipidemia Father Medical history unknown Social History Social History (Updated 04/04/24 @ 03:54 by Inga Stapleton DO) Social History: The patient is . She smoked 1.5 packs per day since she was a teenager but quit December 2023. She has no known history of alcohol use or illicit s
--- NOTE | 2024-04-03 21:43 | PC.NURSE ---
Pt is awake and alert at this time. Fentanyl titrated to 175 mcg/hr.
--- NOTE | 2024-04-03 21:51 | PC.NURSE ---
Dr. Stapleton made aware of pt status. Fentanyl drip is titrated up to 200 mcg/hr per vorb Dr. Stapleton.
[2024-04-03] MEDS: MIDAZOLAM HCL (*CRX) 2 MG/2 ML VIAL 4 MG IV PUSH (22:01)
[2024-04-03] MEDS: fentaNYL CITRATE INJ (*CRX) 100 MCG/2 ML VIAL 50 MCG IV PUSH (22:01)
--- NOTE | 2024-04-03 22:27 | PC.NURSE ---
Pt's versed drip titrated to 4 mg/hr vorb via Dr. Stapleton
[2024-04-03] MEDS: DOXYCYCLINE 100 MG/NS 100 ML 100 MG/100 ML BAG IVPB (22:46)
--- NOTE | 2024-04-03 23:07 | ADMGEN ---
This patient, Isabel De Anda, was admitted to Intensive Care Unit-8 at 2215. Patient/family oriented to hospital policies and general routines including ID bracelet, bed and alarms, visiting hours, pain management, procedures, bathroom and other care routines, personal items, smoking policy, room service/diet, and visiting hours. Information on how to activate the Rapid Response Team has been discussed. Patient/Family are encouraged to report perceived risks to care and to ask questions if they do not understand what they are told or what they should do.
[2024-04-03] MEDS: MINERAL OIL/WHITE PETROLATUM OINTMENT 1 APPLIC EACH EYE (23:25)
[2024-04-03 23:38] LABS: Troponin I 0.312 ng/mL (0.000-0.034)
[2024-04-03] MEDS: HEPARIN SODIUM 5,000 UNITS/ML VIAL 6000 UNITS IV PUSH (23:44)
[2024-04-03] MEDS: HEPARIN SOD/D5W 100 UNITS/ML 25,000 UNITS/250 ML BAG 13 UNITS IV CONT (23:47)
[2024-04-03] MEDS: metroNIDAZOLE 500 MG/ISO 100ML 500 MG/100 ML BAG 100 MG IVPB (23:53)
[2024-04-03 23:54] LABS: MRSA (PCR) NOT DETECTED (NOT DETECTE)
[2024-04-04] VITALS (37 sets, daily range): BP systolic 113–162; BP diastolic 65–90; PULSE 86–107; RESP 12–26; TEMP 36.9–37.6; O2SAT 11–98; BMI 42.4
[2024-04-04] LABS: Alveolar/Arterial O2 Gradient 152.1 mmHg; Base Excess ABG 7.7 mEq/l (+/-2.0); Carboxyhemoglobin 0.1 % THb (0-2.0); Fractional Inspired Oxygen 50 %; Methemoglobin ABG 0.2 %THb (0-1.5); Oxygen Content ABG 15.6 %vol (16.0-22.0); Oxygen Saturation ABG 98.7 % (95.0-100.0); Oxyhemoglobin 98.4 % THb (90.0-100.0); PCO2 ABG 56.8 mmHg (35.0-45.0); PO2 ABG 140.5 mmHg (80.0-100.0); PO2 FiO2 Ratio Arterial Blood 2.81 %; Reduced Hemoglobin 1.3 %THb (0-5.0); Total Hemoglobin 11.1 g/dL (12.0-18.0); pH ABG 7.395 (7.350-7.450)
--- NOTE | 2024-04-04 | ECHO_ITS ---
Patient Info Name: Isabel De Anda Age: 63 years : 1960 Gender: Female Ht: 63 in Wt: 240 lbs BSA: 2.26 m2 HR: 95 bpm BP: 149 / 98 mmHg Heart Rhythm: Sinus Rhythm Technical Quality: Fair Exam Date: 04/04/2024 8:55 AM Exam Location: Echo Lab Patient Status: Inpatient Admit Date: 04/03/2024 Staff Ordering Physician: Inga Stapleton DO Chemical Unit Operator: Selma Garcia RDCS Attending Provider: Ramon Parker MD Referring Physician: Pieter CRUZ; Exam Type: CA echo dop color flow w con Study Info Indications - Cardiac arrest Complete two-dimensional, color flow and Doppler transthoracic echocardiogram is performed with contrast to opacify the left ventricle and to improve the deliniation of the left ventricle endocardial borders. Contrast/Agitated Saline Contrast/Ag. Saline: Definity Amount: 2.00 ml Administered By: Selma Garcia RDCS Existing IV Access: Yes IV Access Condition: patent with no signs of infiltration Summary 1. Technically challenging exam, definity contrast used to improve visualization. 2. Vigorous left and right ventricular systolic function. 3. Biatrial dilation. 4. Mild mitral annular calcification. 5. Sclerotic aortic valve which is not significantly stenotic. Left Ventricle Left ventricular chamber dimension is normal. Left ventricular systolic function is normal, estimated at 65-70%. The left ventricular diastolic function is grade I diastolic dysfunction. Right Ventricle Right ventricular chamber dimension is normal. Left Atria Left atrial chamber dimension is mildly enlarged. Right Atria Right atrial chamber dimension is mildly enlarged. Aortic Valve The aortic valve is trileaflet. There is mild aortic valve sclerosis. Pulmonic Valve The pulmonic valve is not well visualized. Mitral Valve The mitral valve has normal leaflets. There is trace mitral valve regurgitation. Tricuspid Valve The tricuspid valve leaflets are not well visualized. Pericardium/Pleural The pericardium appears normal. Aorta The aortic root size at the sinus of Valsalva is normal. Left Ventricular Outflow Tract Name Value Normal LVOT 2D LVOT Diameter 1.92 cm LVOT Doppler LVOT Peak Gradient 5 mmHg LVOT Mean Gradient 2 mmHg LVOT VTI 17.61 cm LVOT VTI/AV VTI Ratio 0.62 LVOT Stroke Volume 50.91 ml LVOT CO 4.65 l/min LVOT CI 2.06 L/min/m2 Pulmonic Valve Name Value Normal RVOT Doppler RVOT Peak Gradient 3 mmHg PV Doppler PV Peak Gradient 14 mmHg Mitral Valve Name
[2024-04-04 00:01] LABS: Arterial Blood Gas Ventilator rate 30 /MIN; Device VENTILATOR; Modified Allen's Test Pass; Site Drawn RIGHT RADIAL
[2024-04-04 00:02] LABS: Arterial Blood Gas PEEP 5 cmH2O; Arterial Blood Gas Tidal Volume 350 ml; Arterial Blood Gas Vent Mode CMV
[2024-04-04] MEDS: ALBUTEROL SULFATE NEB 2.5 MG/3 ML INH 5 MG INHALATION ×4 (02:29→20:21)
[2024-04-04] MEDS: IPRATROPIUM BR 0.02% INH SOLN 0.5 MG/2.5 ML VIAL INHALATION ×4 (02:30→20:21)
[2024-04-04 05:25] LABS: Alveolar/Arterial O2 Gradient 146.9 mmHg; Base Excess ABG 12.1 mEq/l (+/-2.0); Carboxyhemoglobin 0.3 % THb (0-2.0); Fractional Inspired Oxygen 40 %; HCO3 ABG 38.8 mEq/l (22.0-26.0); Methemoglobin ABG 0.2 %THb (0-1.5); Oxyhemoglobin 92.1 % THb (90.0-100.0); PO2 FiO2 Ratio Arterial Blood 1.67 %; Reduced Hemoglobin 7.4 %THb (0-5.0); Total Hemoglobin 10.8 g/dL (12.0-18.0); pH ABG 7.414 (7.350-7.450)
[2024-04-04 05:27] LABS: Device VENTILATOR; Modified Allen's Test Pass; Site Drawn RIGHT RADIAL
[2024-04-04 05:28] LABS: Arterial Blood Gas PEEP 5 cmH2O; Arterial Blood Gas Tidal Volume 380 ml; Arterial Blood Gas Vent Mode CMV; Arterial Blood Gas Ventilator rate 24 /MIN
[2024-04-04] MEDS: methylPREDNISolone SOD SUCC 125 MG VIAL 60 MG IV PUSH (05:32)
[2024-04-04] MEDS: CENTRAL LINE FLUSH 10 ML IV PUSH ×2 (05:33→21:10)
[2024-04-04 05:46] LABS: Basophils Percent Auto 0.2 % (0.2-1.2); Hemoglobin 9.9 g/dL (12.0-15.0); Immature Granulocyte Absolute 0.11 K/mm3 (0.00-0.031); Immature Granulocyte Percent A 0.6 % (0-0.5); Lymphocytes Absolute Auto 0.34 K/mm3 (0.9-3.2); Lymphocytes Percent Auto 1.7 % (18.3-44.2); Mean Corpuscular HGB Conc 30.9 g/dl (32-36); Mean Corpuscular Hemoglobin 32.5 pg (26-34); Mean Corpuscular Volume 104.9 fl (80-100); Mean Platelet Volume 11.9 fl (7.4-10.4); Monocytes Absolute Auto 0.9 K/mm3 (0.1-0.6); Monocytes Percent Auto 4.4 % (2.6-8.5); Neutrophils Absolute Auto 18.5 K/mm3 (1.3-6.7); Neutrophils Percent Auto 93.1 % (45.5-73.1); Platelet Count Result 160 k/mm3 (150-375); Red Blood Count 3.05 M/mm3 (4.2-5.4); Red Cell Distribution Width 13.3 % (11.5-14.5); White Blood Count 19.8 K/mm3 (4.5-10.0)
[2024-04-04 05:56] LABS: Albumin Level 3.1 g/dL (3.5-5.1); Alkaline Phosphatase 74 U/L (38-126); Bilirubin,Total 0.7 mg/dL (0.2-1.3); Blood Urea Nitrogen 33 mg/dL (7-17); Calcium 8.5 mg/dL (8.4-10.2); Chloride 94 mmol/L (98-107); Estimated CRCL calculation 45 ml/min; Estimated Glomerular Filt Rate 38; Glucose 166 mg/dL (65-110); Magnesium 1.7 mg/dL (1.6-2.3); Potassium 3.5 mmol/L (3.4-5.0); Sodium 143 mmol/L (137-145)
[2024-04-04 06:01] LABS: Carbon Dioxide > 40 mmol/L (22-30)
[2024-04-04 06:03] LABS: Aspartate Amino Transferase 1029 U/L (14-36)
[2024-04-04 06:04] LABS: Alanine Aminotransferase 796 U/L (6-35)
[2024-04-04] MEDS: VANCOMYCIN 1,250 MG/NS 250 ML 1,250 MG/250 ML BAG 166.67 MG IVPB ×2 (06:08→07:38)
[2024-04-04 06:13] LABS: Troponin I 0.313 ng/mL (0.000-0.034)
[2024-04-04] MEDS: CEFEPIME 2 GM/NS 50 ML 2 GM/50 ML BAG IVPB ×2 (06:15→18:11)
[2024-04-04 06:26] LABS: Thyroid Stimulating Hormone 0.878 uIU/mL (0.465-4.680)
[2024-04-04 06:30] LABS: Partial Thromboplastin Time 195.6 Seconds (22.3-36.8)
[2024-04-04] MEDS: PANTOPRAZOLE SODIUM IV 40 MG VIAL IV PUSH (08:18)
[2024-04-04] MEDS: MINERAL OIL/WHITE PETROLATUM OINTMENT 1 APPLIC EACH EYE ×2 (08:18→21:10)
[2024-04-04] MEDS: FENTANYL 2,500MCG/NS250ML(*CRX 2,500 MCG/250 ML BAG 15 MCG IV CONT (09:06)
[2024-04-04] MEDS: PERFLUTREN LIPID MICROSPHERES 1.5 ML VIAL DILUTED TO 10 ML TOTAL VOLUME IV PUSH (09:25)
--- NOTE | 2024-04-04 09:52 | WPDCNINT ---
Assessment and Plan Assessment and plan (1) Acute on chronic respiratory failure with hypoxia and hypercapnia: Code(s): J96.21 - Acute and chronic respiratory failure with hypoxia; J96.22 - Acute and chronic respiratory failure with hypercapnia Status: Acute Assessment and Plan: Patient has chronic respiratory failure secondary to congestive heart failure and COPD. Patient is on home oxygen and CPAP. Patient's events started with shortness of breath. Post intubation ABG showed acute on chronic hypercarbic respiratory failure along with hypoxia Chest CTA IMPRESSION: Occasional small left lower lobe subsegmental pulmonary emboli Congestive changes including moderate right and small left pleural effusions ABG reviewed and will decrease rate to 20 Continue mechanical ventilation Imaging reviewed Continue bronchodilators. Decrease steroids to q.day Continue cefepime but will discontinue vancomycin Hold and defer diuretics at this time since patient has worsening renal function and is only on 40% FiO2 Heparin infusion for the PE. Check echocardiogram PCR for flu COVID and RSV were negative (2) Cardiac arrest due to respiratory disorder: Code(s): J98.9 - Respiratory disorder, unspecified; I46.8 - Cardiac arrest due to other underlying condition Status: Acute Assessment and Plan: Patient had a cardiac stress that was precipitated by respiratory distress and respiratory failure. She appeared to have COPD exacerbation and was also found to be having small PE on her CTA. Pulmonary edema EKG did not show any ST elevation but she had mildly elevated troponin Patient does have baseline chronic respiratory failure Consult cardiology Heparin infusion Check echocardiogram Serial troponin (3) Transaminitis: Code(s): R74.01 - Elevation of levels of liver transaminase levels Status: Acute Assessment and Plan: Elevated AST and ALT Likely secondary to rhabdomyolysis and shock liver Monitor levels Check CK level (4) Elevated troponin: Code(s): R79.89 - Other specified abnormal findings of blood chemistry Status: Acute Assessment and Plan: Secondary to cardiac arrest and PE On heparin infusion Hold statin due to elevated liver enzymes Add aspirin Cardiology consult Check echocardiogram EKG reviewed and does not show any ST elevation in shows sinus rhythm (5) Pulmonary embolism: Qualifiers: Pulmonary embolism type: single subsegmental (without acute cor pulmonale) Qualified Code(s): I26.93 - Single subsegmental pulmonary embolism without acute cor pulmonale Code(s): I26.99 - Other pulmonary embolism without acute cor pulmonale Status: Acute Assessment and Plan: See above Check lower extremity Dopplers for DVT (6) COPD exacerbation: Code(s): J44.1 - Chronic obstructive pulmonary disease with (acute) exacerbation Status: Acute Assessment and Plan: See above (7) GERD (gastroesophageal reflux disease): Code(s): K21.9 - Gastro-esophageal reflux disease without esophagitis Status: Acute Assessment and Plan: Continue Protonix (8) Hyperlipidemia: Code(s): E78.5 - Hyperlipidemia, unspecified Status: Acute Assessment and Plan: Hold statin (9) Hypertension: Code(s): I10 - Essential (primary) hypertension Status: Acute Assessment and Plan: Blood pressure now elevated. Treat p.r.n. (10) Lactic acidosis: Code(s): E87.20 - Acidosis, unspecified Status: Acute Assessment and Plan: Elevated lactic acid level is secondary to COPD cardiac arrest and sepsis Recheck level this morning (11) Sepsis: Code(s): A41.9 - Sepsis, unspecified organism Status: Acute Assessment and Plan: Sepsis secondary to UTI. CT scan of the chest does not suggest pneumonia Blood cultures and urine culture sent. Will check sputum culture also Of blood pres
[2024-04-04] MEDS: SODIUM CHLORIDE 0.9% IV 1,000 ML 100 ML IV CONT (10:08)
[2024-04-04] MEDS: POTASSIUM CHLORIDE 20 MEQ PACKET (FOR LIQUID) FEED TUBE (10:10)
[2024-04-04] MEDS: MAGNESIUM SULF 1 GM/D5W 100 ML 1 GM/100 ML BAG IVPB (10:10)
[2024-04-04 10:49] LABS: Lactic Acid Reflex 1.5 mmol/L (0.7-2.0)
[2024-04-04 10:53] LABS: Creatine Kinase 57 U/L (30-135)
--- NOTE | 2024-04-04 11:05 | PM.CNCAR ---
Assessment and Plan Assessment and plan (1) Cardiac arrest due to respiratory disorder: Code(s): J98.9 - Respiratory disorder, unspecified; I46.8 - Cardiac arrest due to other underlying condition Status: Acute Plan 63-year-old lady with morbid obesity, apparent significant COPD with longstanding cigarette smoking for many years who enters the hospital after what appears to be a respiratory followed by cardiac arrest. She is now intubated and on ventilator support. I do not see any evidence in the chart that would indicate this was primarily a cardiac event. Her electrocardiogram is completely normal and her troponin levels are slightly elevated consistent with the event as detailed above, not suggestive of an acutely closed coronary artery. At this point simply aggressive supportive care is to be recommended. I will review her echocardiogram later a but at this point there are no specific cardiac recommendations to make since I do not believe this was primarily a cardiac event Syed Watson MD [facility] History of Present Illness History of Present Illness Consult date/time: 04/04/24 11:05 Reason For Visit: Cardiac arrest Narrative: This is a 63-year-old lady I am seeing at the request of the hospitalist/ems driver because of respiratory a cardiac arrest which occurred yesterday. The patient is unknown to me prior to this encounter she was seen in the ICU her chart was reviewed. Some additional history was obtained from her son who is visiting her at this time. The patient is intubated and obviously capable of providing any direct history. According to the records she was feeling unwell in her home the son can not really be more specific than that. Her came in to check on her and she [facility] ambulance to be called. By the time they got that the patient had collapsed in her home and was found in her residence without a pulse. One of the notes in the chart indicates she was asystolic another note indicates evidence of pulseless electrical activity. In any event resuscitation effort was undertaken in the field and state again in the emergency department. Eventually spontaneous circulation was restored to she of course was intubated admitted to the ICU. Following resuscitation her electrocardiogram looks remarkably normal. Troponin levels were sampled in are slightly elevated but not in a pattern typical or consistent with acute coronary injury. According to the chart and according to the son she does not have a history of heart disease. The patient's medical problems primarily are morbid obesity significant are chronic lung disease with smoking 2 packs per day until recently and some element of chronic kidney disease. According to the records she has been hospitalized frequently elsewhere with dyspnea but not at [facility]. She is currently in ICU room 8. She does appear to be responsive and is looking about the room. Review of Systems Review of Systems: ROS unobtainable: Yes unobtainable due to endotracheal tube PMFSH Past Medical History Medical History (Updated 04/04/24 @ 10:12 by Mumtaz Lowery MD) COPD (chronic obstructive pulmonary disease) GERD (gastroesophageal reflux disease) Hyperlipidemia Hypertension Insomnia Morbid obesity Obstructive sleep apnea treated with BiPAP Tobacco abuse disorder Vitamin D deficiency Surgical History Surgical History History of arthroscopy of both knees History of ileostomy (~2021) due to fistula repair and she chose not to reverse ostomy History of oral surgery (07/2020) Excision of cyst from the hard palate History of total abdominal hysterectomy and bilateral salpingo-oophorectomy (~1996) Family History Family History Mother Diabetes mellitus Hypertension Hyperlipidemia Father Medical history unknown Social History Social History (Reviewed
[2024-04-04 11:32] LABS: Glucose Point of Care 171 mg/dl (65-105)
[2024-04-04] MEDS: PROPOFOL IV EMULSION 100 ML 3.26 MG IV CONT (11:33)
[2024-04-04 11:39] LABS: Triglycerides 97 mg/dL (<150)
--- NOTE | 2024-04-04 11:56 | IVDEFINITY ---
Prior to administration of IV Definity the patient was educated on the risks and benefits of the imaging enhancing agent including potential adverse side effects. The patient verbalized understanding. Allergies were verified. No exclusion criteria were identified and at least one of the following inclusion criteria were met: 1) physician request, 2) patient technically difficult to image (per the [place] [employer] guidelines of two or more segments not discernable within the apical view), or 3) questionable left ventricular function. ?
[2024-04-04 12:33] LABS: Procalcitonin 2.3 ng/mL
[2024-04-04 13:55] LABS: Partial Thromboplastin Time 95.5 Seconds (22.3-36.8)
[2024-04-04] MEDS: FENTANYL 2,500MCG/NS250ML(*CRX 2,500 MCG/250 ML BAG 10 MCG IV CONT (14:13)
[2024-04-04 18:12] LABS: Glucose Point of Care 157 mg/dl (65-105)
[2024-04-04] MEDS: PROPOFOL IV EMULSION 100 ML 13.03 MG IV CONT (20:00)
[2024-04-04] MEDS: HEPARIN SOD/D5W 100 UNITS/ML 25,000 UNITS/250 ML BAG 11 UNITS IV CONT (20:10)
[2024-04-04 20:37] LABS: Partial Thromboplastin Time 102.8 Seconds (22.3-36.8)
--- NOTE | 2024-04-04 22:58 | PC.NURSE ---
1969: Update given to via telephone.
[2024-04-05] VITALS (33 sets, daily range): BP systolic 111–152; BP diastolic 58–94; PULSE 77–110; RESP 10–26; TEMP 36.8–37.3; O2SAT 92–98
[2024-04-05 00:52] LABS: Glucose Point of Care 117 mg/dl (65-105)
[2024-04-05] MEDS: IPRATROPIUM BR 0.02% INH SOLN 0.5 MG/2.5 ML VIAL INHALATION ×3 (02:11→20:11)
[2024-04-05] MEDS: ALBUTEROL SULFATE NEB 2.5 MG/3 ML INH 5 MG INHALATION ×3 (02:11→20:11)
[2024-04-05] MEDS: PROPOFOL IV EMULSION 100 ML 16.29 MG IV CONT ×3 (03:41→15:03)
[2024-04-05 05:21] LABS: Alveolar/Arterial O2 Gradient 111.4 mmHg; Base Excess ABG 10.9 mEq/l (+/-2.0); Carboxyhemoglobin 0.1 % THb (0-2.0); Fractional Inspired Oxygen 35 %; Methemoglobin ABG 0.2 %THb (0-1.5); Oxygen Content ABG 14.3 %vol (16.0-22.0); Oxygen Saturation ABG 96.3 % (95.0-100.0); Oxyhemoglobin 95.4 % THb (90.0-100.0); PCO2 ABG 50.3 mmHg (35.0-45.0); PO2 ABG 79.7 mmHg (80.0-100.0); PO2 FiO2 Ratio Arterial Blood 2.28 %; Reduced Hemoglobin 4.3 %THb (0-5.0); Total Hemoglobin 10.6 g/dL (12.0-18.0); pH ABG 7.472 (7.350-7.450)
[2024-04-05 05:24] LABS: Device VENTILATOR; Modified Allen's Test Unable to perform; Site Drawn RIGHT RADIAL
[2024-04-05 05:25] LABS: Arterial Blood Gas PEEP 8 cmH2O; Arterial Blood Gas Tidal Volume 380 ml; Arterial Blood Gas Vent Mode CMV; Arterial Blood Gas Ventilator rate 20 /MIN
[2024-04-05] MEDS: CEFEPIME 2 GM/NS 50 ML 2 GM/50 ML BAG IVPB ×2 (05:50→17:34)
[2024-04-05] MEDS: CENTRAL LINE FLUSH 10 ML IV PUSH ×3 (05:50→20:10)
[2024-04-05 06:02] LABS: Hematocrit 31.5 % (37.0-47.0); Hemoglobin 9.5 g/dL (12.0-15.0); Mean Corpuscular HGB Conc 30.2 g/dl (32-36); Mean Corpuscular Hemoglobin 32.2 pg (26-34); Mean Corpuscular Volume 106.8 fl (80-100); Mean Platelet Volume 11.5 fl (7.4-10.4); Platelet Count Result 167 k/mm3 (150-375); Red Blood Count 2.95 M/mm3 (4.2-5.4); Red Cell Distribution Width 14.2 % (11.5-14.5); White Blood Count 27.9 K/mm3 (4.5-10.0)
[2024-04-05 06:23] LABS: Partial Thromboplastin Time 87.2 Seconds (22.3-36.8)
[2024-04-05 06:30] LABS: Alanine Aminotransferase 625 U/L (6-35); Alkaline Phosphatase 75 U/L (38-126); Aspartate Amino Transferase 293 U/L (14-36); Bilirubin,Total 0.6 mg/dL (0.2-1.3); Blood Urea Nitrogen 46 mg/dL (7-17); Calcium 8.5 mg/dL (8.4-10.2); Carbon Dioxide > 40 mmol/L (22-30); Chloride 95 mmol/L (98-107); Estimated CRCL calculation 30 ml/min; Estimated Glomerular Filt Rate 24; Glucose 139 mg/dL (65-110); Potassium 4.1 mmol/L (3.4-5.0); Sodium 140 mmol/L (137-145)
[2024-04-05] MEDS: FENTANYL 2,500MCG/NS250ML(*CRX 2,500 MCG/250 ML BAG 10 MCG IV CONT (07:45)
[2024-04-05] MEDS: PANTOPRAZOLE SODIUM IV 40 MG VIAL IV PUSH (08:36)
[2024-04-05] MEDS: ASPIRIN 325 MG TABLET FEED TUBE (08:36)
[2024-04-05] MEDS: methylPREDNISolone SOD SUCC 125 MG VIAL 60 MG IV PUSH (08:36)
[2024-04-05] MEDS: MINERAL OIL/WHITE PETROLATUM OINTMENT 1 APPLIC EACH EYE ×2 (08:36→20:11)
--- NOTE | 2024-04-05 10:13 | PM.CNNEP ---
Assessment and Plan Assessment and plan (1) NUNU (acute kidney injury): Code(s): N17.9 - Acute kidney failure, unspecified Status: Acute Assessment and Plan: as noted by trend of labs since admission suspect ATN with multifactorial etiology: respiratory + cardiac arrest previous hemodynamic instability/hypotension pre-renal factors(?) NSAID use prior to admission contrast exposure (CTA of chest) infection/sepsis (UTI + bacteremia) check urine studies and renal ultrasound consider trial of IVFs follow trend of repeat labs and UOP (2) Acute on chronic respiratory failure with hypoxia and hypercapnia: Code(s): J96.21 - Acute and chronic respiratory failure with hypoxia; J96.22 - Acute and chronic respiratory failure with hypercapnia Status: Acute Assessment and Plan: due to possible CHF + COPD exacerbation + pulmonary embolism RSV/influencza/COVID testing negative to date continue bronchodilators, steroids and heparin gtt continue ventilatior support hold diuretics since volume status stable (3) Cardiac arrest due to respiratory disorder: Code(s): J98.9 - Respiratory disorder, unspecified; I46.8 - Cardiac arrest due to other underlying condition Status: Acute Assessment and Plan: precipitated by respiratory distress/failure (from COPD + pulmonary embolism +/- pulmonary edema) troponins mildly elevated but no EKG changes noted Cardiology recommendations noted Echo reviewed continue supportive therapy (4) Sepsis: Code(s): A41.9 - Sepsis, unspecified organism Status: Acute Assessment and Plan: due to bacteremia (source not clear) UA suggestive of UTI but culture negative so far CT of chest withotu evidence of pneumonia blood culture with GPC BP francisco with IVFs and has not required vasopressor therapy on antibiotic therapy follow repeat cultures and hemodynamicse (5) Pulmonary embolism: Qualifiers: Pulmonary embolism type: single subsegmental (without acute cor pulmonale) Qualified Code(s): I26.93 - Single subsegmental pulmonary embolism without acute cor pulmonale Code(s): I26.99 - Other pulmonary embolism without acute cor pulmonale Status: Acute Assessment and Plan: as noted by CTA of chest on heparin gtt (6) Lactic acidosis: Code(s): E87.20 - Acidosis, unspecified Status: Acute Assessment and Plan: due to respiratory/cardiac arrest + sepsis follow repeat levels with current therapy (7) Hypertension: Code(s): I10 - Essential (primary) hypertension Status: Chronic Assessment and Plan: reasonable control follow trend of hemodynamics Long extensive discussion (greater than 20 min) with the patient's son at bedside with regard to her renal dysfunction. I voiced my concerns that there is a possibility that her kidney function could deteriorate further and she may require renal replacement therapy/dialysis. However, since she remains hemodynamically stable there is a possibility that her kidney function could improve with ongoing supportive therapy. He appeared to voice understanding. I will continue to follow the patient with you while she remains hospitalized make further recommendations as deemed necessary. Thank you for allowing me to participate in care of this patient. History of Present Illness Reason for Consult Consult date: 04/05/24 Reason for consult: acute renal failure Chief Complaint Chief complaint: Cardiac arrest History of Present Illness Narrative: All the information the information I obtained is from review of the electronic medical record as well as discussion with the physicians/ nurses involved in the patient's care as well as her son at bedside as the patient is unable provide any history and she is currently intubated and on mechanical ventilation. The patient is a 63-year-old female with a pas
--- NOTE | 2024-04-05 10:13 | P.CONNP_ITS ---
Assessment and Plan Assessment and plan (1) NUNU (acute kidney injury): Code(s): N17.9 - Acute kidney failure, unspecified Status: Acute Assessment and Plan: * as noted by trend of labs since admission * suspect ATN with multifactorial etiology: * respiratory + cardiac arrest * previous hemodynamic instability/hypotension * pre-renal factors(?) * NSAID use prior to admission * contrast exposure (CTA of chest) * infection/sepsis (UTI + bacteremia) * check urine studies and renal ultrasound * consider trial of IVFs * follow trend of repeat labs and UOP (2) Acute on chronic respiratory failure with hypoxia and hypercapnia: Code(s): J96.21 - Acute and chronic respiratory failure with hypoxia; J96.22 - Acute and chronic respiratory failure with hypercapnia Status: Acute Assessment and Plan: * due to possible CHF + COPD exacerbation + pulmonary embolism * RSV/influencza/COVID testing negative to date * continue bronchodilators, steroids and heparin gtt * continue ventilatior support * hold diuretics since volume status stable (3) Cardiac arrest due to respiratory disorder: Code(s): J98.9 - Respiratory disorder, unspecified; I46.8 - Cardiac arrest due to other underlying condition Status: Acute Assessment and Plan: * precipitated by respiratory distress/failure (from COPD + pulmonary embolism +/- pulmonary edema) * troponins mildly elevated but no EKG changes noted * Cardiology recommendations noted * Echo reviewed * continue supportive therapy (4) Sepsis: Code(s): A41.9 - Sepsis, unspecified organism Status: Acute Assessment and Plan: * due to bacteremia (source not clear) * UA suggestive of UTI but culture negative so far * CT of chest withotu evidence of pneumonia * blood culture with GPC * BP francisco with IVFs and has not required vasopressor therapy * on antibiotic therapy * follow repeat cultures and hemodynamicse (5) Pulmonary embolism: Qualifiers: Pulmonary embolism type: single subsegmental (without acute cor pulmonale) Qualified Code(s): I26.93 - Single subsegmental pulmonary embolism without acute cor pulmonale Code(s): I26.99 - Other pulmonary embolism without acute cor pulmonale Status: Acute Assessment and Plan: * as noted by CTA of chest * on heparin gtt (6) Lactic acidosis: Code(s): E87.20 - Acidosis, unspecified Status: Acute Assessment and Plan: * due to respiratory/cardiac arrest + sepsis * follow repeat levels with current therapy (7) Hypertension: Code(s): I10 - Essential (primary) hypertension Status: Chronic Assessment and Plan: * reasonable control * follow trend of hemodynamics Long extensive discussion (greater than 20 min) with the patient's son at bedside with regard to her renal dysfunction. I voiced my concerns that there is a possibility that her kidney function could deteriorate further and she may require renal replacement therapy/dialysis. However, since she remains hemodynamically stable there is a possibility that her kidney function could improve with ongoing supportive therapy. He appeared to voice understanding. I will continue to follow the patient with you while she remains hospitalized make further recommendations as deemed necessary. Thank you for allowing me to participate in care of this patient. History of Present Illness Reason for Consult Consult date: 04/05/24 Reason for consult: acute renal failure Chief Compl
--- NOTE | 2024-04-05 10:31 | PCNFU ---
Nutrition Follow-Up Complete: Suboptimal Energy Intake as related to mechanical ventilation as evidenced by NPO/Tube feedings. Goal: Meet estimated nutritional needs. Patient is progressing towards goal. We will continue current goal. Pt current nutrition is Vital AF 1.2 at 30 ml/hr. Last recorded weight is 109.2 kg, up from 108.6 kg on admit. Bowel Motility: +BM reported 04/05 Labs Reviewed: Glu 139, Cr 2.10, BUN 46, GFR 24, Hct 31.5,Hgb 9.5 Meds Noted:Vancomycin, Heparin, Fentanyl, Propofol 16.3 ml/ge=392 kcals. Skin: WNL Additional Notes: Patient remains on mechanical vent. Tube feedings are being increased today to 45 ml/hr. Total Nutrition: 1618 kcals/74 gm protein/803 ml water. Flush 30 ml q 4 hours. Agree with diet orders at this time. Will monitor daily in ICU rounds. Reassessing weight, labs, skin, meds, tube feeding tolerance every Thursday and Thursday.
[2024-04-05 11:57] LABS: Glucose Point of Care 174 mg/dl (65-105)
--- NOTE | 2024-04-05 14:31 | WPDINTPN ---
Progress Note: A&P Assessment and Plan (1) Acute on chronic respiratory failure with hypoxia and hypercapnia: Code(s): J96.21 - Acute and chronic respiratory failure with hypoxia; J96.22 - Acute and chronic respiratory failure with hypercapnia Status: Acute Assessment and Plan: Patient has chronic respiratory failure secondary to congestive heart failure and COPD. Patient is on home oxygen and CPAP. Patient's events started with shortness of breath. Post intubation ABG showed acute on chronic hypercarbic respiratory failure along with hypoxia -04/03: Intubated in the ER Chest CTA on admission IMPRESSION: Occasional small left lower lobe subsegmental pulmonary emboli Congestive changes including moderate right and small left pleural effusions -ABGs reviewed, ventilator adjusted -Continue mechanical ventilation -started on heparin infusion for PE -Continue bronchodilators. -will further decrease steroids -Continue cefepime but will discontinue vancomycin -will hold diuretics PCR for flu COVID and RSV were negative (2) Cardiac arrest due to respiratory disorder: Code(s): J98.9 - Respiratory disorder, unspecified; I46.8 - Cardiac arrest due to other underlying condition Status: Acute Assessment and Plan: -Patient had a cardiac stress that was precipitated by respiratory distress and respiratory failure. She appeared to have COPD exacerbation and was also found to be having small PE on her CTA. Pulmonary edema EKG did not show any ST elevation but she had mildly elevated troponin Patient does have baseline chronic respiratory failure Appreciate cardiology evaluation recommendation -continue Heparin infusion 04/04: Echocardiogram Summary 1. Technically challenging exam, definity contrast used to improve visualization. 2. Vigorous left and right ventricular systolic function. EF 65-70%, grade 1 diastolic dysfunction 3. Biatrial dilation. 4. Mild mitral annular calcification. 5. Sclerotic aortic valve which is not significantly stenotic. (3) Transaminitis: Code(s): R74.01 - Elevation of levels of liver transaminase levels Status: Acute Assessment and Plan: Elevated AST and ALT Likely secondary to shock liver along with cardiac arrest LFTs trending down, continue to monitor -CK levels within normal limits (4) Elevated troponin: Code(s): R79.89 - Other specified abnormal findings of blood chemistry Status: Acute Assessment and Plan: Secondary to cardiac arrest and PE On heparin infusion -Hold statin due to elevated liver enzymes -continue aspirin -appreciate cardiology following -echocardiogram as above -EKG reviewed and does not show any ST elevation in shows sinus rhythm (5) Pulmonary embolism: Qualifiers: Pulmonary embolism type: single subsegmental (without acute cor pulmonale) Qualified Code(s): I26.93 - Single subsegmental pulmonary embolism without acute cor pulmonale Code(s): I26.99 - Other pulmonary embolism without acute cor pulmonale Status: Acute Assessment and Plan: Continue heparin infusion -04/05: bilateral lower extremity venous Dopplers were negative for DVT (6) COPD exacerbation: Code(s): J44.1 - Chronic obstructive pulmonary disease with (acute) exacerbation Status: Acute Assessment and Plan: See above (7) GERD (gastroesophageal reflux disease): Code(s): K21.9 - Gastro-esophageal reflux disease without esophagitis Status: Acute Assessment and Plan: Continue Protonix (8) Hyperlipidemia: Code(s): E78.5 - Hyperlipidemia, unspecified Status: Acute Assessment and Plan: Hold statin since LFTs elevated will readdress once liver enzymes improved (9) Hypertension: Code(s): I10 - Essential (primary) hypertension Status: Acute Assessment and Plan: Blood pressure stable. Treat p.r.n. (10) Lactic acidosis:
[2024-04-05 14:44] LABS: Creatinine Urine 127.9 mg/dL; Total Protein Urine Random 71 mg/dL; Ur Ttl Prot Creatinine Ratio 0.56 mg/mg (0-0.20)
[2024-04-05 14:45] LABS: Eosinophil Urine None Seen % (None Seen); Urine Eos QC NAO
[2024-04-05 14:49] LABS: Creatinine Urine 130.2 mg/dL; Total Protein Urine Random 72 mg/dL; Urea Random Urine 737 MG/DL
[2024-04-05 15:04] LABS: Sodium Urine Random 34 meq/L
[2024-04-05] MEDS: LACTATED RINGERS 1,000 ML 75 ML IV CONT (15:11)
[2024-04-05 17:28] LABS: Glucose Point of Care 191 mg/dl (65-105)
[2024-04-05] MEDS: VANCOMYCIN 1,500 MG/NS 500 ML 1,500 MG/500 ML BAG 250 MG IVPB (18:27)
[2024-04-05] MEDS: PROPOFOL IV EMULSION 100 ML 19.55 MG IV CONT (20:33)
--- NOTE | 2024-04-05 23:40 | PC.NURSE ---
2340: Update given to , Isra, via telephone.
[2024-04-06] VITALS (45 sets, daily range): BP systolic 105–182; BP diastolic 56–134; PULSE 74–150; RESP 11–30; TEMP 36.9–37.5; O2SAT 90–98
[2024-04-06 00:06] LABS: Glucose Point of Care 154 mg/dl (65-105)
[2024-04-06] MEDS: PROPOFOL IV EMULSION 100 ML 22.81 MG IV CONT ×2 (02:00→06:32)
[2024-04-06] MEDS: IPRATROPIUM BR 0.02% INH SOLN 0.5 MG/2.5 ML VIAL INHALATION ×4 (02:19→20:39)
[2024-04-06] MEDS: ALBUTEROL SULFATE NEB 2.5 MG/3 ML INH 5 MG INHALATION ×4 (02:19→20:39)
[2024-04-06] MEDS: LACTATED RINGERS 1,000 ML 75 ML IV CONT (05:04)
[2024-04-06 05:25] LABS: Alveolar/Arterial O2 Gradient 77.4 mmHg; Base Excess ABG 12.5 mEq/l (+/-2.0); Carboxyhemoglobin 0.1 % THb (0-2.0); Fractional Inspired Oxygen 35 %; HCO3 ABG 40.9 mEq/l (22.0-26.0); Methemoglobin ABG 0.2 %THb (0-1.5); Oxygen Content ABG 15.2 %vol (16.0-22.0); Oxygen Saturation ABG 95.2 % (95.0-100.0); Oxyhemoglobin 95.8 % THb (90.0-100.0); PO2 ABG 83.2 mmHg (80.0-100.0); PO2 FiO2 Ratio Arterial Blood 2.38 %; Reduced Hemoglobin 3.9 %THb (0-5.0); Total Hemoglobin 11.2 g/dL (12.0-18.0); pH ABG 7.346 (7.350-7.450)
[2024-04-06 05:27] LABS: Device VENTILATOR; Modified Allen's Test Pass; PCO2 ABG 76.5 mmHg (35.0-45.0); Site Drawn RIGHT RADIAL
[2024-04-06 05:28] LABS: Arterial Blood Gas PEEP 8 cmH2O; Arterial Blood Gas Tidal Volume 380 ml; Arterial Blood Gas Vent Mode CMV; Arterial Blood Gas Ventilator rate 18 /MIN
[2024-04-06] MEDS: METOPROLOL TARTRATE INJ 5 MG/5 ML VIAL IV PUSH ×2 (05:32→08:41)
[2024-04-06] MEDS: CEFEPIME 2 GM/NS 50 ML 2 GM/50 ML BAG IVPB ×2 (05:33→18:18)
[2024-04-06] MEDS: CENTRAL LINE FLUSH 10 ML IV PUSH ×2 (05:33→20:17)
[2024-04-06 06:22] LABS: Hematocrit 33.1 % (37.0-47.0); Hemoglobin 9.8 g/dL (12.0-15.0); Mean Corpuscular HGB Conc 29.6 g/dl (32-36); Mean Corpuscular Hemoglobin 31.5 pg (26-34); Mean Corpuscular Volume 106.4 fl (80-100); Platelet Count Result 178 k/mm3 (150-375); Red Blood Count 3.11 M/mm3 (4.2-5.4); Red Cell Distribution Width 13.8 % (11.5-14.5); White Blood Count 25.9 K/mm3 (4.5-10.0)
[2024-04-06 06:38] LABS: Partial Thromboplastin Time 69.3 Seconds (22.3-36.8)
[2024-04-06 06:40] LABS: Alanine Aminotransferase 458 U/L (6-35); Albumin Level 3.2 g/dL (3.5-5.1); Alkaline Phosphatase 80 U/L (38-126); Aspartate Amino Transferase 96 U/L (14-36); Bilirubin,Total 0.5 mg/dL (0.2-1.3); Blood Urea Nitrogen 57 mg/dL (7-17); Calcium 8.7 mg/dL (8.4-10.2); Carbon Dioxide > 40 mmol/L (22-30); Chloride 93 mmol/L (98-107); Estimated CRCL calculation 35 ml/min; Estimated Glomerular Filt Rate 27; Glucose 152 mg/dL (65-110); Magnesium 2.2 mg/dL (1.6-2.3); Phosphorus 3.6 mg/dL (2.5-4.5); Potassium 4.8 mmol/L (3.4-5.0); Sodium 139 mmol/L (137-145)
[2024-04-06] MEDS: HEPARIN SODIUM 5,000 UNITS/ML VIAL 3000 UNITS IV PUSH (07:23)
[2024-04-06] MEDS: methylPREDNISolone SOD SUCC 125 MG VIAL 40 MG IV PUSH (08:45)
[2024-04-06] MEDS: PANTOPRAZOLE SODIUM IV 40 MG VIAL IV PUSH (08:45)
[2024-04-06] MEDS: MINERAL OIL/WHITE PETROLATUM OINTMENT 1 APPLIC EACH EYE ×2 (08:47→20:17)
--- NOTE | 2024-04-06 08:50 | PC.NURSE ---
Discussed meds with Dr. Flako MD stated to cut both sedation medications in half for a possible breathing trial.
[2024-04-06] MEDS: HEPARIN SOD/D5W 100 UNITS/ML 25,000 UNITS/250 ML BAG 12 UNITS IV CONT (08:54)
[2024-04-06] MEDS: FENTANYL 2,500MCG/NS250ML(*CRX 2,500 MCG/250 ML BAG IV CONT (08:57)
[2024-04-06] MEDS: carvediloL 6.25 MG TABLET PO (09:07)
[2024-04-06] MEDS: ASPIRIN 325 MG TABLET FEED TUBE (09:08)
[2024-04-06] MEDS: ATORVASTATIN 20 MG TABLET PO (09:08)
--- NOTE | 2024-04-06 09:55 | WPDINTPN ---
Progress Note: A&P Assessment and Plan (1) Acute on chronic respiratory failure with hypoxia and hypercapnia: Code(s): J96.21 - Acute and chronic respiratory failure with hypoxia; J96.22 - Acute and chronic respiratory failure with hypercapnia Status: Acute Assessment and Plan: Patient has chronic respiratory failure secondary to congestive heart failure and COPD. Patient is on home oxygen and CPAP. Patient's events started with shortness of breath. Post intubation ABG showed acute on chronic hypercarbic respiratory failure along with hypoxia -04/03: Intubated in the ER Chest CTA on admission IMPRESSION: Occasional small left lower lobe subsegmental pulmonary emboli Congestive changes including moderate right and small left pleural effusions -ABGs reviewed, ventilator adjusted -Continue mechanical ventilation -started on heparin infusion for PE -Continue bronchodilators. -will further decrease steroids -Continue cefepime but will discontinue vancomycin -patient on propofol and fentanyl infusion for sedation, maintain RASS of 0 to -2, daily SBT and SAT -have asked the bedside RN to stop the sedation, will try patient on SBT. -see patient was placed on PSV 06/07, was breathing 35-40 times a minute, low tidal volumes. Placed back on propofol was started Precedex as she was getting very anxious. Placed on ASV and will evaluate PCR for flu COVID and RSV were negative (2) Cardiac arrest due to respiratory disorder: Code(s): J98.9 - Respiratory disorder, unspecified; I46.8 - Cardiac arrest due to other underlying condition Status: Acute Assessment and Plan: -Patient had a cardiac stress that was precipitated by respiratory distress and respiratory failure. She appeared to have COPD exacerbation and was also found to be having small PE on her CTA. Pulmonary edema EKG did not show any ST elevation but she had mildly elevated troponin Patient does have baseline chronic respiratory failure Appreciate cardiology evaluation recommendation -continue Heparin infusion 04/04: Echocardiogram Summary 1. Technically challenging exam, definity contrast used to improve visualization. 2. Vigorous left and right ventricular systolic function. EF 65-70%, grade 1 diastolic dysfunction 3. Biatrial dilation. 4. Mild mitral annular calcification. 5. Sclerotic aortic valve which is not significantly stenotic. (3) NUNU (acute kidney injury): Code(s): N17.9 - Acute kidney failure, unspecified Status: Acute Assessment and Plan: Patient with acute kidney injury likely related to cardiac arrest, hypotension, prerenal factors. -urine output gradually improving, creatinine improving after IV fluids 1500 mL over 20 hours -blood pressures have been stable -patient is leaking around the catheter, -new Shell catheter will be inserted to get better input and output -urine lytes did not show prerenal picture, negative urine eosinophils, CK levels were within normal limits -04/05: Renal ultrasound - 1. Normal right kidney. No hydronephrosis. 2. Left kidney not visualized. Note that the prior CT demonstrates moderate atrophy of left kidney without hydronephrosis Continue to monitor urine output, renal function electrolytes Appreciate nephrology following the patient (4) Transaminitis: Code(s): R74.01 - Elevation of levels of liver transaminase levels Status: Acute Assessment and Plan: Elevated AST and ALT Likely secondary to shock liver along with cardiac arrest LFTs trending down, continue to monitor -CK levels within normal limits (5) Elevated troponin: Code(s): R79.89 - Other specified abnormal findings of blood chemistry Status: Acute Assessment and Plan: Secondary to cardiac arrest and PE On heparin infusion -Hold statin due to elevated liver enzymes -continue aspirin -appreciate cardiology following -echocardiogram as above -EKG reviewed and does n
[2024-04-06] MEDS: hydrALAZINE HCL 20 MG/ML VIAL 10 MG IV PUSH (10:03)
[2024-04-06 10:44] LABS: Triglycerides 147 mg/dL (<150)
[2024-04-06] MEDS: dexmedeTOMIDine 400 MCG/100 ML 400 MCG/100 ML BAG 5.78 MCG IV CONT (11:05)
--- NOTE | 2024-04-06 11:09 | PCFNICU ---
ICU Rounding Note: Pt current nutrition is Vital AF 1.2 at 45 ml/hr. Last recorded weight is 115.5 kg, up from 108.6 kg on admit. Bowel Motility: +BM reported 04/06 Labs Reviewed:Glu 152, GFR 27, BUN 57, Cr 1.9, Alb 3.2,Hct 33.1,Hgb 9.8 Meds Noted:Propofol at 15 ml/hr-396 kcals, Fentanyl, Heparin Skin: WNL Additional Notes: Patient remains on mechanical vent. Tube feedings and sedation are being paused at this time for possible breathing trial today. Will continue to monitor. Following daily in ICU rounds. Will monitor weight, labs, skin, meds, tube feeding tolerance every Thursday and Thursday.
[2024-04-06 11:39] LABS: Glucose Point of Care 205 mg/dl (65-105)
[2024-04-06] MEDS: INSULIN ASPART (*BKC) 100 UNITS/ML SUB-Q ×2 (11:50→18:20)
[2024-04-06] MEDS: amLODIPine BESYLATE 10 MG TABLET PO (12:15)
--- NOTE | 2024-04-06 12:20 | PM.PNNEP ---
Progress Note: A&P Assessment and Plan (1) NUNU (acute kidney injury): Code(s): N17.9 - Acute kidney failure, unspecified Status: Acute Assessment and Plan: as noted by trend of labs since admission slow improvement noted suspect ATN with multifactorial etiology: respiratory + cardiac arrest previous hemodynamic instability/hypotension pre-renal factors(?) NSAID use prior to admission contrast exposure (CTA of chest) infection/sepsis (bacteremia) evalutaion to date: urine electrolytes prerenal urine eosinophils negative mild proteinuria renal u/s and CT without obstruction - left kidney atrophy noted CPK normal s/p trial of IVFs follow trend of repeat labs and UOP (2) Acute on chronic respiratory failure with hypoxia and hypercapnia: Code(s): J96.21 - Acute and chronic respiratory failure with hypoxia; J96.22 - Acute and chronic respiratory failure with hypercapnia Status: Acute Assessment and Plan: due to possible CHF + COPD exacerbation + pulmonary embolism RSV/influencza/COVID testing negative to date continue bronchodilators and heparin gtt; weaning steroids continue ventilator support holding diuretics since volume status stable (3) Cardiac arrest due to respiratory disorder: Code(s): J98.9 - Respiratory disorder, unspecified; I46.8 - Cardiac arrest due to other underlying condition Status: Acute Assessment and Plan: precipitated by respiratory distress/failure (from COPD + pulmonary embolism +/- pulmonary edema) troponins mildly elevated but no EKG changes noted Cardiology recommendations noted Echo reviewed continue supportive therapy (4) Sepsis: Code(s): A41.9 - Sepsis, unspecified organism Status: Acute Assessment and Plan: due to bacteremia (source not clear) UA suggestive of UTI but culture negative so far CT of chest withotu evidence of pneumonia blood culture with Staph epidermis BP francisco with IVFs and has not required vasopressor therapy on antibiotic therapy follow repeat cultures and hemodynamics (5) Pulmonary embolism: Qualifiers: Pulmonary embolism type: single subsegmental (without acute cor pulmonale) Qualified Code(s): I26.93 - Single subsegmental pulmonary embolism without acute cor pulmonale Code(s): I26.99 - Other pulmonary embolism without acute cor pulmonale Status: Acute Assessment and Plan: as noted by CTA of chest on heparin gtt (6) Lactic acidosis: Code(s): E87.20 - Acidosis, unspecified Status: Acute Assessment and Plan: due to respiratory/cardiac arrest + sepsis follow repeat levels with current therapy (7) Hypertension: Code(s): I10 - Essential (primary) hypertension Status: Chronic Assessment and Plan: reasonable control follow trend of hemodynamics Will continue to follow. Subjective Date/time seen: 04/06/24 12:20 Interval history: Follow-up for acute kidney injury/acute renal failure. Remains intubated/sedated and on mechanical ventilation; improvement in mental status noted (following simple commands and nods to yes/no questions); creatinine a bit better following IVF challenge but urine output noted to be low although noted leakage around sosa catheter and better output noted with sosa catheter exchange earlier today. Exam Narrative: General: large female intubated/sedated and on mechanical ventilation Heart: normal S1 and S2; no rub Lungs: coarse breath sounds Abdomen: soft, nontender, nondistended, decreased bowel sounds; colostomy in place Extremities: no cyanosis or clubbing; trace - 1+ edema Skin: warm and dry Objective Data Vital Signs Vital Signs: Vital Signs Temp Pulse Resp BP Pulse Ox O2 Del Method FiO2 04/06/24 12:00 99.5 F 110 H 16 174/123 H 91 04/06/24 11:05 124 H 94 Mechanical Ventilation 30 04/06/24
--- NOTE | 2024-04-06 12:20 | P.PNNP_ITS ---
Progress Note: A&P Assessment and Plan (1) NUNU (acute kidney injury): Code(s): N17.9 - Acute kidney failure, unspecified Status: Acute Assessment and Plan: * as noted by trend of labs since admission * slow improvement noted * suspect ATN with multifactorial etiology: * respiratory + cardiac arrest * previous hemodynamic instability/hypotension * pre-renal factors(?) * NSAID use prior to admission * contrast exposure (CTA of chest) * infection/sepsis (bacteremia) * evalutaion to date: * urine electrolytes prerenal * urine eosinophils negative * mild proteinuria * renal u/s and CT without obstruction - left kidney atrophy noted * CPK normal * s/p trial of IVFs * follow trend of repeat labs and UOP (2) Acute on chronic respiratory failure with hypoxia and hypercapnia: Code(s): J96.21 - Acute and chronic respiratory failure with hypoxia; J96.22 - Acute and chronic respiratory failure with hypercapnia Status: Acute Assessment and Plan: * due to possible CHF + COPD exacerbation + pulmonary embolism * RSV/influencza/COVID testing negative to date * continue bronchodilators and heparin gtt; weaning steroids * continue ventilator support * holding diuretics since volume status stable (3) Cardiac arrest due to respiratory disorder: Code(s): J98.9 - Respiratory disorder, unspecified; I46.8 - Cardiac arrest due to other underlying condition Status: Acute Assessment and Plan: * precipitated by respiratory distress/failure (from COPD + pulmonary embolism +/- pulmonary edema) * troponins mildly elevated but no EKG changes noted * Cardiology recommendations noted * Echo reviewed * continue supportive therapy (4) Sepsis: Code(s): A41.9 - Sepsis, unspecified organism Status: Acute Assessment and Plan: * due to bacteremia (source not clear) * UA suggestive of UTI but culture negative so far * CT of chest withotu evidence of pneumonia * blood culture with Staph epidermis * BP francisco with IVFs and has not required vasopressor therapy * on antibiotic therapy * follow repeat cultures and hemodynamics (5) Pulmonary embolism: Qualifiers: Pulmonary embolism type: single subsegmental (without acute cor pulmonale) Qualified Code(s): I26.93 - Single subsegmental pulmonary embolism without acute cor pulmonale Code(s): I26.99 - Other pulmonary embolism without acute cor pulmonale Status: Acute Assessment and Plan: * as noted by CTA of chest * on heparin gtt (6) Lactic acidosis: Code(s): E87.20 - Acidosis, unspecified Status: Acute Assessment and Plan: * due to respiratory/cardiac arrest + sepsis * follow repeat levels with current therapy (7) Hypertension: Code(s): I10 - Essential (primary) hypertension Status: Chronic Assessment and Plan: * reasonable control * follow trend of hemodynamics Will continue to follow. Subjective Date/time seen: 04/06/24 12:20 Interval history: Follow-up for acute kidney injury/acute renal failure. Remains intubated/sedated and on mechanical ventilation; improvement in mental status noted (following simple commands and nods to yes/no questions); creatinine a bit better following IVF challenge but urine output noted to be low although noted leakage around sosa catheter and better output noted with sosa catheter exchange earlier today. Exam Narrative: General: large fema
[2024-04-06] MEDS: PROPOFOL IV EMULSION 100 ML 9.77 MG IV CONT (13:16)
[2024-04-06 13:52] LABS: Partial Thromboplastin Time 49.1 Seconds (22.3-36.8)
[2024-04-06] MEDS: HEPARIN SODIUM 5,000 UNITS/ML VIAL 6000 UNITS IV PUSH (14:36)
--- NOTE | 2024-04-06 17:53 | P.PNIM_ITS ---
Progress Note: A&P Assessment and Plan (1) Acute on chronic respiratory failure with hypoxia and hypercapnia: Code(s): J96.21 - Acute and chronic respiratory failure with hypoxia; J96.22 - Acute and chronic respiratory failure with hypercapnia Status: Acute Assessment and Plan: Patient has chronic respiratory failure secondary to congestive heart failure and COPD. Patient is on home oxygen and CPAP. Patient's events started with shortness of breath. Post intubation ABG showed acute on chronic hypercarbic respiratory failure along with hypoxia -04/03: Intubated in the ER Chest CTA on admission IMPRESSION: Occasional small left lower lobe subsegmental pulmonary emboli Congestive changes including moderate right and small left pleural effusions -ABGs reviewed, ventilator adjusted -Continue mechanical ventilation -started on heparin infusion for PE -Continue bronchodilators. -will further decrease steroids -Continue cefepime but will discontinue vancomycin -patient on propofol and fentanyl infusion for sedation, maintain RASS of 0 to - 2, daily SBT and SAT -have asked the bedside RN to stop the sedation, will try patient on SBT. -see patient was placed on PSV 06/07, was breathing 35-40 times a minute, low tidal volumes. Placed back on propofol was started Precedex as she was getting very anxious. Placed on ASV and will evaluate PCR for flu COVID and RSV were negative (2) Cardiac arrest due to respiratory disorder: Code(s): J98.9 - Respiratory disorder, unspecified; I46.8 - Cardiac arrest due to other underlying condition Status: Acute Assessment and Plan: -Patient had a cardiac stress that was precipitated by respiratory distress and respiratory failure. She appeared to have COPD exacerbation and was also found to be having small PE on her CTA. Pulmonary edema EKG did not show any ST elevation but she had mildly elevated troponin Patient does have baseline chronic respiratory failure Appreciate cardiology evaluation recommendation -continue Heparin infusion 04/04: Echocardiogram Summary 1. Technically challenging exam, definity contrast used to improve visualization. 2. Vigorous left and right ventricular systolic function. EF 65-70%, grade 1 diastolic dysfunction 3. Biatrial dilation. 4. Mild mitral annular calcification. 5. Sclerotic aortic valve which is not significantly stenotic. (3) NUNU (acute kidney injury): Code(s): N17.9 - Acute kidney failure, unspecified Status: Acute Assessment and Plan: Patient with acute kidney injury likely related to cardiac arrest, hypotension, prerenal factors. -urine output gradually improving, creatinine improving after IV fluids 1500 mL over 20 hours -blood pressures have been stable -patient is leaking around the catheter, -new Shell catheter will be inserted to get better input and output -urine lytes did not show prerenal picture, negative urine eosinophils, CK levels were within normal limits -04/05: Renal ultrasound - 1. Normal right kidney. No hydronephrosis. 2. Left kidney not visualized. Note that the prior CT demonstrates moderate atrophy of left kidney without hydronephrosis Continue to monitor urine output, renal function electrolytes Appreciate nephrology following the patient (4) Transaminitis: Code(s): R74.01 - Elevation of levels of liver transaminase levels Status: Acute Assessment and Plan: Elevated AST and ALT Likely secondary to shock liver along with cardiac arrest LFTs trending down, continue to monitor -CK levels within normal limits (5) Elev
[2024-04-06 18:14] LABS: Glucose Point of Care 212 mg/dl (65-105)
[2024-04-06] MEDS: HEPARIN SOD/D5W 100 UNITS/ML 25,000 UNITS/250 ML BAG 15 UNITS IV CONT (18:18)
[2024-04-06] MEDS: PROPOFOL IV EMULSION 100 ML 13.03 MG IV CONT (19:40)
[2024-04-06] MEDS: dexmedeTOMIDine 400 MCG/100 ML 400 MCG/100 ML BAG 8.66 MCG IV CONT (20:12)
[2024-04-06] MEDS: carvediloL 12.5 MG TABLET PO (20:17)
[2024-04-06 21:07] LABS: Partial Thromboplastin Time > 200.0 Seconds (22.3-36.8)
--- NOTE | 2024-04-06 23:16 | PC.NURSE ---
Update given to , Isra, via telephone.
[2024-04-07] VITALS (39 sets, daily range): BP systolic 106–190; BP diastolic 72–118; PULSE 69–140; RESP 12–23; TEMP 36.6–37.2; O2SAT 91–98
[2024-04-07 00:06] LABS: Glucose Point of Care 164 mg/dl (65-105)
[2024-04-07] MEDS: ALBUTEROL SULFATE NEB 2.5 MG/3 ML INH 5 MG INHALATION ×4 (02:50→21:01)
[2024-04-07] MEDS: IPRATROPIUM BR 0.02% INH SOLN 0.5 MG/2.5 ML VIAL INHALATION ×4 (02:50→21:01)
[2024-04-07] MEDS: PROPOFOL IV EMULSION 100 ML 13.03 MG IV CONT (03:10)
[2024-04-07 04:48] LABS: Partial Thromboplastin Time 110.2 Seconds (22.3-36.8)
[2024-04-07] MEDS: CENTRAL LINE FLUSH 10 ML IV PUSH ×3 (05:20→22:06)
[2024-04-07] MEDS: CEFEPIME 2 GM/NS 50 ML 2 GM/50 ML BAG IVPB ×2 (05:20→17:50)
[2024-04-07 05:23] LABS: Alveolar/Arterial O2 Gradient 59.7 mmHg; Base Excess ABG 9.8 mEq/l (+/-2.0); Carboxyhemoglobin 0.2 % THb (0-2.0); Fractional Inspired Oxygen 30 %; Methemoglobin ABG 0.2 %THb (0-1.5); Oxygen Saturation ABG 96.6 % (95.0-100.0); Oxyhemoglobin 96.2 % THb (90.0-100.0); PO2 ABG 87.2 mmHg (80.0-100.0); PO2 FiO2 Ratio Arterial Blood 2.91 %; Reduced Hemoglobin 3.4 %THb (0-5.0); pH ABG 7.418 (7.350-7.450)
[2024-04-07 05:25] LABS: Arterial Blood Gas PEEP 8 cmH2O; Arterial Blood Gas Tidal Volume 380 ml; Arterial Blood Gas Vent Mode CMV; Arterial Blood Gas Ventilator rate 20 /MIN; Device VENTILATOR; Modified Allen's Test Pass; Site Drawn RIGHT RADIAL
[2024-04-07 05:25] LABS: Hematocrit 32.8 % (37.0-47.0); Mean Corpuscular HGB Conc 30.5 g/dl (32-36); Mean Corpuscular Hemoglobin 31.9 pg (26-34); Mean Corpuscular Volume 104.8 fl (80-100); Mean Platelet Volume 11.7 fl (7.4-10.4); Platelet Count Result 166 k/mm3 (150-375); Red Blood Count 3.13 M/mm3 (4.2-5.4); Red Cell Distribution Width 13.6 % (11.5-14.5)
[2024-04-07 05:46] LABS: Alanine Aminotransferase 289 U/L (6-35); Albumin Level 2.9 g/dL (3.5-5.1); Alkaline Phosphatase 77 U/L (38-126); Anion Gap 7 mmol/L (4-12); Aspartate Amino Transferase 38 U/L (14-36); Bilirubin,Total 0.5 mg/dL (0.2-1.3); Blood Urea Nitrogen 69 mg/dL (7-17); Calcium 8.4 mg/dL (8.4-10.2); Carbon Dioxide 38 mmol/L (22-30); Chloride 94 mmol/L (98-107); Estimated CRCL calculation 37 ml/min; Estimated Glomerular Filt Rate 29; Glucose 166 mg/dL (65-110); Phosphorus 3.7 mg/dL (2.5-4.5); Potassium 4.7 mmol/L (3.4-5.0); Sodium 139 mmol/L (137-145)
[2024-04-07 06:29] LABS: Vancomycin Trough 15.8 ug/mL (10.0-20.0)
[2024-04-07] MEDS: VANCOMYCIN 1,500 MG/NS 500 ML 1,500 MG/500 ML BAG 250 MG IVPB (07:05)
[2024-04-07] MEDS: dexmedeTOMIDine 400 MCG/100 ML 400 MCG/100 ML BAG 8.66 MCG IV CONT (07:07)
[2024-04-07] MEDS: ATORVASTATIN 20 MG TABLET PO (08:38)
[2024-04-07] MEDS: ASPIRIN 325 MG TABLET FEED TUBE (08:38)
[2024-04-07] MEDS: carvediloL 6.25 MG TABLET PO (08:39)
[2024-04-07] MEDS: MINERAL OIL/WHITE PETROLATUM OINTMENT 1 APPLIC EACH EYE (08:39)
[2024-04-07] MEDS: PANTOPRAZOLE SODIUM IV 40 MG VIAL IV PUSH (08:39)
[2024-04-07] MEDS: methylPREDNISolone SOD SUCC 125 MG VIAL 40 MG IV PUSH (08:39)
--- NOTE | 2024-04-07 10:59 | PCRCNOTE ---
[facility] will bring in AVAPS/TRILOGY unit, recently set up for home use prior to this admission. Pt hasnt used this unit yet, hospitalized before home set up. [facility] will be in after lunch today.
[2024-04-07 12:51] LABS: Alveolar/Arterial O2 Gradient 79.2 mmHg; Base Excess ABG 8.4 mEq/l (+/-2.0); Carboxyhemoglobin 0.6 % THb (0-2.0); Fractional Inspired Oxygen 30 %; HCO3 ABG 34.7 mEq/l (22.0-26.0); Methemoglobin ABG 0.1 %THb (0-1.5); Oxygen Content ABG 15.5 %vol (16.0-22.0); Oxygen Saturation ABG 93.5 % (95.0-100.0); Oxyhemoglobin 93.3 % THb (90.0-100.0); PCO2 ABG 56.2 mmHg (35.0-45.0); PO2 ABG 68.7 mmHg (80.0-100.0); PO2 FiO2 Ratio Arterial Blood 2.29 %; Total Hemoglobin 11.8 g/dL (12.0-18.0); pH ABG 7.408 (7.350-7.450)
[2024-04-07 12:53] LABS: Device VENTILATOR; Modified Allen's Test Pass; Site Drawn RIGHT RADIAL
[2024-04-07 12:53] LABS: Glucose Point of Care 196 mg/dl (65-105)
[2024-04-07 12:55] LABS: Arterial Blood Gas PEEP 5 cmH2O; Arterial Blood Gas Pressure Support 8 cmH2O; Arterial Blood Gas Vent Mode SPONTANEOUS
--- NOTE | 2024-04-07 13:09 | PM.PNNEP ---
Progress Note: A&P Assessment and Plan (1) NUNU (acute kidney injury): Code(s): N17.9 - Acute kidney failure, unspecified Status: Acute Assessment and Plan: as noted by trend of labs since admission slow improvement noted suspect ATN with multifactorial etiology: respiratory + cardiac arrest previous hemodynamic instability/hypotension pre-renal factors(?) NSAID use prior to admission contrast exposure (CTA of chest) infection/sepsis (bacteremia) evalutaion to date: urine electrolytes prerenal urine eosinophils negative mild proteinuria renal u/s and CT without obstruction - left kidney atrophy noted CPK normal s/p trial of IVFs follow trend of repeat labs and UOP (2) Acute on chronic respiratory failure with hypoxia and hypercapnia: Code(s): J96.21 - Acute and chronic respiratory failure with hypoxia; J96.22 - Acute and chronic respiratory failure with hypercapnia Status: Acute Assessment and Plan: resolving - extubated today due to possible CHF + COPD exacerbation + pulmonary embolism RSV/influencza/COVID testing negative to date continue bronchodilators and heparin gtt; weaning steroids continue ventilator support holding diuretics since volume status stable (3) Cardiac arrest due to respiratory disorder: Code(s): J98.9 - Respiratory disorder, unspecified; I46.8 - Cardiac arrest due to other underlying condition Status: Acute Assessment and Plan: precipitated by respiratory distress/failure (from COPD + pulmonary embolism +/- pulmonary edema) troponins mildly elevated but no EKG changes noted Cardiology recommendations noted Echo reviewed continue supportive therapy (4) Sepsis: Code(s): A41.9 - Sepsis, unspecified organism Status: Acute Assessment and Plan: due to bacteremia (source not clear) UA suggestive of UTI but culture negative so far CT of chest withotu evidence of pneumonia blood cultures with Staph epidermis BP francisco with IVFs and has not required vasopressor therapy on antibiotic therapy follow repeat cultures and hemodynamics (5) Pulmonary embolism: Qualifiers: Pulmonary embolism type: single subsegmental (without acute cor pulmonale) Qualified Code(s): I26.93 - Single subsegmental pulmonary embolism without acute cor pulmonale Code(s): I26.99 - Other pulmonary embolism without acute cor pulmonale Status: Acute Assessment and Plan: as noted by CTA of chest on heparin gtt (6) Lactic acidosis: Code(s): E87.20 - Acidosis, unspecified Status: Acute Assessment and Plan: due to respiratory/cardiac arrest + sepsis follow repeat levels with current therapy (7) Hypertension: Code(s): I10 - Essential (primary) hypertension Status: Chronic Assessment and Plan: reasonable control follow trend of hemodynamics Will continue to follow. Subjective Date/time seen: 04/07/24 13:09 Interval history: Follow-up for acute kidney injury/acute renal failure. Successfully extubated earlier today; mentation appears stable as able to follow commands and answer simple questions; renal function/creatinine improving along with reasonable urine output; no other issues/events overnight or earlier this morning. Exam Narrative: General: large female intubated/sedated and on mechanical ventilation Heart: normal S1 and S2; no rub Lungs: coarse breath sounds Abdomen: soft, nontender, nondistended, decreased bowel sounds; colostomy in place Extremities: no cyanosis or clubbing; trace edema Skin: warm and intact Objective Data Vital Signs Vital Signs: Vital Signs Temp Pulse Resp BP Pulse Ox O2 Del Method FiO2 04/07/24 13:00 102 H 15 04/07/24 12:00 98.5 F 102 H 15 173/99 H 93 04/07/24 12:00 30 04/07/24 12:00 102 H 04/07/24 10:50 76 14 04/07/24 11:02
--- NOTE | 2024-04-07 13:09 | P.PNNP_ITS ---
Progress Note: A&P Assessment and Plan (1) NUNU (acute kidney injury): Code(s): N17.9 - Acute kidney failure, unspecified Status: Acute Assessment and Plan: * as noted by trend of labs since admission * slow improvement noted * suspect ATN with multifactorial etiology: * respiratory + cardiac arrest * previous hemodynamic instability/hypotension * pre-renal factors(?) * NSAID use prior to admission * contrast exposure (CTA of chest) * infection/sepsis (bacteremia) * evalutaion to date: * urine electrolytes prerenal * urine eosinophils negative * mild proteinuria * renal u/s and CT without obstruction - left kidney atrophy noted * CPK normal * s/p trial of IVFs * follow trend of repeat labs and UOP (2) Acute on chronic respiratory failure with hypoxia and hypercapnia: Code(s): J96.21 - Acute and chronic respiratory failure with hypoxia; J96.22 - Acute and chronic respiratory failure with hypercapnia Status: Acute Assessment and Plan: * resolving - extubated today * due to possible CHF + COPD exacerbation + pulmonary embolism * RSV/influencza/COVID testing negative to date * continue bronchodilators and heparin gtt; weaning steroids * continue ventilator support * holding diuretics since volume status stable (3) Cardiac arrest due to respiratory disorder: Code(s): J98.9 - Respiratory disorder, unspecified; I46.8 - Cardiac arrest due to other underlying condition Status: Acute Assessment and Plan: * precipitated by respiratory distress/failure (from COPD + pulmonary embolism +/- pulmonary edema) * troponins mildly elevated but no EKG changes noted * Cardiology recommendations noted * Echo reviewed * continue supportive therapy (4) Sepsis: Code(s): A41.9 - Sepsis, unspecified organism Status: Acute Assessment and Plan: * due to bacteremia (source not clear) * UA suggestive of UTI but culture negative so far * CT of chest withotu evidence of pneumonia * blood cultures with Staph epidermis * BP francisco with IVFs and has not required vasopressor therapy * on antibiotic therapy * follow repeat cultures and hemodynamics (5) Pulmonary embolism: Qualifiers: Pulmonary embolism type: single subsegmental (without acute cor pulmonale) Qualified Code(s): I26.93 - Single subsegmental pulmonary embolism without acute cor pulmonale Code(s): I26.99 - Other pulmonary embolism without acute cor pulmonale Status: Acute Assessment and Plan: * as noted by CTA of chest * on heparin gtt (6) Lactic acidosis: Code(s): E87.20 - Acidosis, unspecified Status: Acute Assessment and Plan: * due to respiratory/cardiac arrest + sepsis * follow repeat levels with current therapy (7) Hypertension: Code(s): I10 - Essential (primary) hypertension Status: Chronic Assessment and Plan: * reasonable control * follow trend of hemodynamics Will continue to follow. Subjective Date/time seen: 04/07/24 13:09 Interval history: Follow-up for acute kidney injury/acute renal failure. Successfully extubated earlier today; mentation appears stable as able to follow commands and answer simple questions; renal function/creatinine improving along with reasonable urine output; no other issues/events overnight or earlier this morning. Exam Narrative: General: large female intubated/sedated and on mechanical ventilation Heart:
--- NOTE | 2024-04-07 13:15 | PCFNICU ---
ICU Rounding Note: Pt current nutrition is NPO. Nutrition recommendation: Advance diet as tolerated per MD orders. Last recorded weight is 115.5 kg, up from 108.6 kg on admit. Bowel Motility: +BM reported 04/07 Labs Reviewed:Glu 166, GFR 29, BUN 69, Cr 1.8, Alb 2.9 Meds Noted:Heparin, Vancomycin, Precedex, Protonix. Skin: WNL Additional Notes: Spoke with Grain Manager, patient is extubated. Kidney function is improving. Recommending advancing diet as tolerated when patient is medically able to tolerate per MD orders. Following daily in ICU rounds. Will monitor weight, labs, skin, meds, every 3 days.
[2024-04-07 13:36] LABS: Partial Thromboplastin Time > 200.0 Seconds (22.3-36.8)
--- NOTE | 2024-04-07 14:24 | WPDINTPN ---
Progress Note: A&P Assessment and Plan (1) Acute on chronic respiratory failure with hypoxia and hypercapnia: Code(s): J96.21 - Acute and chronic respiratory failure with hypoxia; J96.22 - Acute and chronic respiratory failure with hypercapnia Status: Acute Assessment and Plan: Patient has chronic respiratory failure secondary to congestive heart failure and COPD. Patient is on home oxygen and CPAP. Patient's events started with shortness of breath. Post intubation ABG showed acute on chronic hypercarbic respiratory failure along with hypoxia -04/03: Intubated in the ER Chest CTA on admission IMPRESSION: Occasional small left lower lobe subsegmental pulmonary emboli Congestive changes including moderate right and small left pleural effusions -started on heparin infusion for PE -Continue bronchodilators. -steroids were discontinued as patient does not have any wheezing -Continue cefepime and vancomycin -patient on Precedex, placed on SBT, extubated on 04/07/2024 PCR for flu COVID and RSV were negative (2) Cardiac arrest due to respiratory disorder: Code(s): J98.9 - Respiratory disorder, unspecified; I46.8 - Cardiac arrest due to other underlying condition Status: Acute Assessment and Plan: -Patient had a cardiac stress that was precipitated by respiratory distress and respiratory failure. She appeared to have COPD exacerbation and was also found to be having small PE on her CTA. Pulmonary edema EKG did not show any ST elevation but she had mildly elevated troponin Patient does have baseline chronic respiratory failure Appreciate cardiology evaluation recommendation -continue Heparin infusion 04/04: Echocardiogram Summary 1. Technically challenging exam, definity contrast used to improve visualization. 2. Vigorous left and right ventricular systolic function. EF 65-70%, grade 1 diastolic dysfunction 3. Biatrial dilation. 4. Mild mitral annular calcification. 5. Sclerotic aortic valve which is not significantly stenotic. (3) NUNU (acute kidney injury): Code(s): N17.9 - Acute kidney failure, unspecified Status: Acute Assessment and Plan: Patient with acute kidney injury likely related to cardiac arrest, hypotension, prerenal factors. -urine output gradually improving, creatinine improving after IV fluids 1500 mL over 20 hours -blood pressures have been stable -urine lytes did not show prerenal picture, negative urine eosinophils, CK levels were within normal limits -04/05: Renal ultrasound - 1. Normal right kidney. No hydronephrosis. 2. Left kidney not visualized. Note that the prior CT demonstrates moderate atrophy of left kidney without hydronephrosis -new Shell catheter was inserted on 04/06/2024 with improved urine output, previous Shell catheter was clogged when removed -adequate urine output with improvement in creatinine Continue to monitor urine output, renal function electrolytes Appreciate nephrology following the patient (4) Transaminitis: Code(s): R74.01 - Elevation of levels of liver transaminase levels Status: Acute Assessment and Plan: Elevated AST and ALT Likely secondary to shock liver along with cardiac arrest LFTs trending down, continue to monitor -CK levels within normal limits (5) Elevated troponin: Code(s): R79.89 - Other specified abnormal findings of blood chemistry Status: Acute Assessment and Plan: Secondary to cardiac arrest and PE On heparin infusion -Hold statin due to elevated liver enzymes -continue aspirin -appreciate cardiology following -echocardiogram as above -EKG reviewed and does not show any ST elevation in shows sinus rhythm (6) Pulmonary embolism: Qualifiers: Pulmonary embolism type: single subsegmental (without acute cor pulmonale) Qualified Code(s): I26.93 - Single subsegmental pulmonary embolism without acute cor pulmonale Code(s): I26.99 - Other p
[2024-04-07] MEDS: HEPARIN SOD/D5W 100 UNITS/ML 25,000 UNITS/250 ML BAG 10 UNITS IV CONT ×2 (14:51→18:55)
[2024-04-07] MEDS: hydrALAZINE HCL 20 MG/ML VIAL 10 MG IV PUSH (14:52)
[2024-04-07] MEDS: METOPROLOL TARTRATE INJ 5 MG/5 ML VIAL IV PUSH ×2 (16:01→22:34)
[2024-04-07 18:01] LABS: Glucose Point of Care 192 mg/dl (65-105)
[2024-04-07] MEDS: carvediloL 25 MG TABLET PO (20:04)
[2024-04-07] MEDS: cloNIDine 0.2 MG/24 HR PATCH 1 PATCH TRANSDERM (20:05)
[2024-04-07] MEDS: TOLNAFTATE 1% POWDER 45 GM BTL 1 APPLIC TOPICAL (20:06)
[2024-04-07 21:22] LABS: Partial Thromboplastin Time 80.8 Seconds (22.3-36.8)
[2024-04-07] MEDS: niCARdipine 20 MG/200 ML 20 MG/200 ML BAG 50 MG IV CONT (23:30)
[2024-04-07 23:57] LABS: Glucose Point of Care 151 mg/dl (65-105)
[2024-04-08] VITALS (44 sets, daily range): BP systolic 121–167; BP diastolic 73–119; PULSE 84–128; RESP 11–26; TEMP 36.3–37.3; O2SAT 93–100
[2024-04-08] MEDS: niCARdipine 20 MG/200 ML 20 MG/200 ML BAG 100 MG IV CONT (01:45)
[2024-04-08] MEDS: IPRATROPIUM BR 0.02% INH SOLN 0.5 MG/2.5 ML VIAL INHALATION ×4 (02:56→20:51)
[2024-04-08] MEDS: ALBUTEROL SULFATE NEB 2.5 MG/3 ML INH 5 MG INHALATION ×4 (02:56→20:51)
[2024-04-08 03:48] LABS: Hematocrit 35.7 % (37.0-47.0); Hemoglobin 11.3 g/dL (12.0-15.0); Mean Corpuscular HGB Conc 31.7 g/dl (32-36); Mean Corpuscular Hemoglobin 32.6 pg (26-34); Mean Corpuscular Volume 102.9 fl (80-100); Mean Platelet Volume 11.6 fl (7.4-10.4); Platelet Count Result 225 k/mm3 (150-375); Red Blood Count 3.47 M/mm3 (4.2-5.4); Red Cell Distribution Width 13.5 % (11.5-14.5); White Blood Count 21.8 K/mm3 (4.5-10.0)
[2024-04-08 03:59] LABS: Alanine Aminotransferase 234 U/L (6-35); Albumin Level 3.3 g/dL (3.5-5.1); Alkaline Phosphatase 85 U/L (38-126); Aspartate Amino Transferase 33 U/L (14-36); Bilirubin,Total 0.7 mg/dL (0.2-1.3); Blood Urea Nitrogen 65 mg/dL (7-17); Calcium 8.8 mg/dL (8.4-10.2); Carbon Dioxide > 40 mmol/L (22-30); Chloride 96 mmol/L (98-107); Estimated CRCL calculation 44 ml/min; Estimated Glomerular Filt Rate 35; Glucose 149 mg/dL (65-110); Magnesium 1.9 mg/dL (1.6-2.3); Partial Thromboplastin Time 57.2 Seconds (22.3-36.8); Phosphorus 3.7 mg/dL (2.5-4.5); Potassium 5.1 mmol/L (3.4-5.0); Sodium 140 mmol/L (137-145)
[2024-04-08] MEDS: niCARdipine 20 MG/200 ML 20 MG/200 ML BAG 75 MG IV CONT (04:00)
[2024-04-08] MEDS: CENTRAL LINE FLUSH 10 ML IV PUSH ×3 (04:37→21:55)
[2024-04-08] MEDS: HEPARIN SODIUM 5,000 UNITS/ML VIAL 3000 UNITS IV PUSH ×2 (04:41→12:01)
[2024-04-08] MEDS: CEFEPIME 2 GM/NS 50 ML 2 GM/50 ML BAG IVPB ×2 (04:43→17:56)
[2024-04-08] MEDS: ACETAMINOPHEN 500 MG TABLET 1000 MG PO (05:07)
--- NOTE | 2024-04-08 05:54 | PC.NURSE ---
0345: Assisted patient in calling .
[2024-04-08] MEDS: niCARdipine 20 MG/200 ML 20 MG/200 ML BAG 50 MG IV CONT ×2 (06:55→10:56)
--- NOTE | 2024-04-08 07:52 | P.PNNP_ITS ---
Progress Note: A&P Assessment and Plan (1) NUNU (acute kidney injury): Code(s): N17.9 - Acute kidney failure, unspecified Status: Acute Assessment and Plan: * Acute kidney injury. * evalutaion to date: * urine electrolytes prerenal * urine eosinophils negative * mild proteinuria * renal u/s and CT without obstruction - left kidney atrophy noted * CPK normal * suspect ATN with multifactorial etiology: * respiratory + cardiac arrest * previous hemodynamic instability/hypotension * pre-renal factors(?) * NSAID use prior to admission * contrast exposure (CTA of chest) * infection/sepsis (bacteremia)s/p trial of IVFs * Shell malfunction (i.e. clogged). This was replaced and the patient made a lot of urine after that. * Creatinine is down to 1.5 * Will check again tomorrow (2) Acute on chronic respiratory failure with hypoxia and hypercapnia: Code(s): J96.21 - Acute and chronic respiratory failure with hypoxia; J96.22 - Acute and chronic respiratory failure with hypercapnia Status: Acute Assessment and Plan: * resolving * Off the ventilator (3) Cardiac arrest due to respiratory disorder: Code(s): J98.9 - Respiratory disorder, unspecified; I46.8 - Cardiac arrest due to other underlying condition Status: Acute Assessment and Plan: * precipitated by respiratory distress/failure (from COPD + pulmonary embolism +/- pulmonary edema) * troponins mildly elevated but no EKG changes noted * Cardiology on the case (4) Sepsis: Code(s): A41.9 - Sepsis, unspecified organism Status: Acute Assessment and Plan: * due to bacteremia (source not clear) * UA suggestive of UTI but culture negative so far * CT of chest without evidence of pneumonia * blood cultures with Staph epidermis * BP better with IVFs * on cefepime and vancomycin (5) Pulmonary embolism: Qualifiers: Pulmonary embolism type: single subsegmental (without acute cor pulmonale) Qualified Code(s): I26.93 - Single subsegmental pulmonary embolism without acute cor pulmonale Code(s): I26.99 - Other pulmonary embolism without acute cor pulmonale Status: Acute Assessment and Plan: * as noted by CTA of chest * on heparin gtt (6) Lactic acidosis: Code(s): E87.20 - Acidosis, unspecified Status: Acute Assessment and Plan: * due to respiratory/cardiac arrest + sepsis * CO2 now high. * Off bicarb supplement (7) Hypertension: Code(s): I10 - Essential (primary) hypertension Status: Chronic Assessment and Plan: * Systolic running in the 120s to 160s * On carvedilol 6.25, clonidine patch, and nicardipine drip. Will continue to follow. Subjective Date/time seen: 04/08/24 07:52 Interval history: Patient feels better today. She is still on her CPAP machine She says her left arm has been hurting for about an hour. I notified the nurse. Exam Narrative: General: large female intubated/sedated and on mechanical ventilation Heart: normal S1 and S2; no rub or gallop Lungs: coarse breath sounds Abdomen: soft, nontender, nondistended, decreased bowel sounds; colostomy in place Extremities: no cyanosis or clubbing; trace edema Skin: No rash Objective Data Vital Signs Vital Signs: Vital Signs - 24 hr 04/07/24 08:39 04/07/24 08:47 04/07/24
--- NOTE | 2024-04-08 07:52 | PM.PNNEP ---
Progress Note: A&P Assessment and Plan (1) NUNU (acute kidney injury): Code(s): N17.9 - Acute kidney failure, unspecified Status: Acute Assessment and Plan: Acute kidney injury. evalutaion to date: urine electrolytes prerenal urine eosinophils negative mild proteinuria renal u/s and CT without obstruction - left kidney atrophy noted CPK normal suspect ATN with multifactorial etiology: respiratory + cardiac arrest previous hemodynamic instability/hypotension pre-renal factors(?) NSAID use prior to admission contrast exposure (CTA of chest) infection/sepsis (bacteremia)s/p trial of IVFs Shell malfunction (i.e. clogged). This was replaced and the patient made a lot of urine after that. Creatinine is down to 1.5 Will check again tomorrow (2) Acute on chronic respiratory failure with hypoxia and hypercapnia: Code(s): J96.21 - Acute and chronic respiratory failure with hypoxia; J96.22 - Acute and chronic respiratory failure with hypercapnia Status: Acute Assessment and Plan: resolving Off the ventilator (3) Cardiac arrest due to respiratory disorder: Code(s): J98.9 - Respiratory disorder, unspecified; I46.8 - Cardiac arrest due to other underlying condition Status: Acute Assessment and Plan: precipitated by respiratory distress/failure (from COPD + pulmonary embolism +/- pulmonary edema) troponins mildly elevated but no EKG changes noted Cardiology on the case (4) Sepsis: Code(s): A41.9 - Sepsis, unspecified organism Status: Acute Assessment and Plan: due to bacteremia (source not clear) UA suggestive of UTI but culture negative so far CT of chest without evidence of pneumonia blood cultures with Staph epidermis BP better with IVFs on cefepime and vancomycin (5) Pulmonary embolism: Qualifiers: Pulmonary embolism type: single subsegmental (without acute cor pulmonale) Qualified Code(s): I26.93 - Single subsegmental pulmonary embolism without acute cor pulmonale Code(s): I26.99 - Other pulmonary embolism without acute cor pulmonale Status: Acute Assessment and Plan: as noted by CTA of chest on heparin gtt (6) Lactic acidosis: Code(s): E87.20 - Acidosis, unspecified Status: Acute Assessment and Plan: due to respiratory/cardiac arrest + sepsis CO2 now high. Off bicarb supplement (7) Hypertension: Code(s): I10 - Essential (primary) hypertension Status: Chronic Assessment and Plan: Systolic running in the 120s to 160s On carvedilol 6.25, clonidine patch, and nicardipine drip. Will continue to follow. Subjective Date/time seen: 04/08/24 07:52 Interval history: Patient feels better today. She is still on her CPAP machine She says her left arm has been hurting for about an hour. I notified the nurse. Exam Narrative: General: large female intubated/sedated and on mechanical ventilation Heart: normal S1 and S2; no rub or gallop Lungs: coarse breath sounds Abdomen: soft, nontender, nondistended, decreased bowel sounds; colostomy in place Extremities: no cyanosis or clubbing; trace edema Skin: No rash Objective Data Vital Signs Vital Signs: Vital Signs - 24 hr 04/07/24 08:39 04/07/24 08:47 04/07/24 08:50 Temperature Pulse Rate 69 72 Respiratory Rate 15 Blood Pressure Pulse Oximetry Oxygen Delivery Mechanical Ventilation Fraction of Inspired Oxygen 30 04/07/24 08:00 04/07/24 08:00 04/07/24 08:00 Temperature 97.8 F Pulse Rate 76 76 Respiratory Rate 20 Blood Pressure 110/72 Pulse Oximetry 97 Oxygen Delivery Fraction of Inspired Oxygen 30 04/07/24 10:00 04/07/24 10:00 04/07/24 10:10 Temperature Pulse Rate 86 89 98 Respiratory Rate 12 Blood Pressure 165/103 H Pulse Oximetry 97 98 Oxygen Delivery Mechanical Ventilation Fracti
[2024-04-08] MEDS: INSULIN HUMAN REGULAR (*BKC) 100 UNITS/ML 10 UNITS IV PUSH (08:45)
[2024-04-08] MEDS: ATORVASTATIN 20 MG TABLET PO (08:47)
[2024-04-08] MEDS: FUROSEMIDE INJ 40 MG/4 ML VIAL IV PUSH (08:47)
[2024-04-08] MEDS: TOLNAFTATE 1% POWDER 45 GM BTL 1 APPLIC TOPICAL ×2 (08:47→21:55)
[2024-04-08] MEDS: ASPIRIN 325 MG TABLET FEED TUBE (08:47)
[2024-04-08] MEDS: carvediloL 6.25 MG TABLET PO (08:47)
[2024-04-08] MEDS: PANTOPRAZOLE SODIUM IV 40 MG VIAL IV PUSH (08:47)
[2024-04-08] MEDS: SODIUM BICARBONATE 8.4% 50 MEQ/50 ML SYRINGE IV PUSH (08:47)
[2024-04-08] MEDS: ACETAMINOPHEN ELIXIR 325 MG/10.15 ML UDC 650 MG PO ×2 (08:48→16:42)
[2024-04-08 11:21] LABS: Partial Thromboplastin Time 60.9 Seconds (22.3-36.8)
[2024-04-08 11:36] LABS: Triglycerides 248 mg/dL (<150)
[2024-04-08 11:59] LABS: Glucose Point of Care 142 mg/dl (65-105)
--- NOTE | 2024-04-08 11:59 | P.PNINT_ITS ---
Progress Note: A&P Assessment and Plan (1) Acute on chronic respiratory failure with hypoxia and hypercapnia: Code(s): J96.21 - Acute and chronic respiratory failure with hypoxia; J96.22 - Acute and chronic respiratory failure with hypercapnia Status: Acute Assessment and Plan: Patient has chronic respiratory failure secondary to congestive heart failure and COPD. Patient is on home oxygen and CPAP. Patient's events started with shortness of breath. Post intubation ABG showed acute on chronic hypercarbic respiratory failure along with hypoxia -04/03: Intubated in the ER -04/07: Extubated successfully continue heparin infusion for now. Will start Eliquis - home med Encourage incentive spirometry -continue bronchodilator -continue vancomycin and cefepime Chest CTA on admission IMPRESSION: Occasional small left lower lobe subsegmental pulmonary emboli Congestive changes including moderate right and small left pleural effusions PCR for flu COVID and RSV were negative (2) Cardiac arrest due to respiratory disorder: Code(s): J98.9 - Respiratory disorder, unspecified; I46.8 - Cardiac arrest due to other underlying condition Status: Acute Assessment and Plan: -Patient had a cardiac arrest that was precipitated by respiratory distress and respiratory failure. She appeared to have COPD exacerbation and was also found to be having small PE on her CTA. Pulmonary edema EKG did not show any ST elevation but she had mildly elevated troponin Patient does have baseline chronic respiratory failure Appreciate cardiology evaluation recommendation -starting home Eliquis, will DC heparin infusion after she takes Eliquis dose 04/04: Echocardiogram Summary 1. Technically challenging exam, definity contrast used to improve visualization. 2. Vigorous left and right ventricular systolic function. EF 65-70%, grade 1 diastolic dysfunction 3. Biatrial dilation. 4. Mild mitral annular calcification. 5. Sclerotic aortic valve which is not significantly stenotic. (3) NUNU (acute kidney injury): Code(s): N17.9 - Acute kidney failure, unspecified Status: Acute Assessment and Plan: Patient with acute kidney injury likely related to cardiac arrest, hypotension, prerenal factors. -urine output gradually improving, creatinine improving after IV fluids 1500 mL over 20 hours -blood pressures have been stable -urine lytes did not show prerenal picture, negative urine eosinophils, CK levels were within normal limits -04/05: Renal ultrasound - 1. Normal right kidney. No hydronephrosis. 2. Left kidney not visualized. Note that the prior CT demonstrates moderate atrophy of left kidney without hydronephrosis -new Shell catheter was inserted on 04/06/2024 with improved urine output, previous Shell catheter was clogged when removed -adequate urine output with improvement in creatinine Continue to monitor urine output, renal function electrolytes -restart her home Lasix Appreciate nephrology following the patient (4) Transaminitis: Code(s): R74.01 - Elevation of levels of liver transaminase levels Status: Acute Assessment and Plan: Elevated AST and ALT Likely secondary to shock liver along with cardiac arrest LFTs trending down, continue to monitor -CK levels within normal limits (5) Elevated troponin: Code(s): R79.89 - Other specified abnormal findings of blood chemistry Status: Acute Assessment and Plan: Secondary to cardiac arrest and PE On heparin infusion -Hold statin due to elevated liver enzymes -con
[2024-04-08] MEDS: LIDOCAINE HCL 1% LOCAL INJ 2 ML AMPUL 5 ML INFILTRATE (13:15)
--- NOTE | 2024-04-08 13:23 | PCNFU ---
Nutrition Follow-Up Complete: Suboptimal Energy Intake as related to mechanical ventilation as evidenced by NPO/Tube feedings. Goal: Meet estimated nutritional needs. Patient is progressing towards goal. We will continue current goal. Pt current nutrition is Heart Healthy. Last recorded weight is 117.5 kg, up from 108.6 kg on admit. Bowel Motility: +BM reported 04/08 Labs Reviewed: Glu 149, BUN 65, Cr 1.5,K 5.1 Meds Noted: Heparin, Lipitor, Cefepime. Skin: WNL Additional Notes: Patient had Bedside Swallow today recommending MBS. Diet order has been advanced to a heart healthy diet per speech recommendations. Agree with diet orders. Will monitor in ICU rounds and reassessing weight, labs, skin, meds, tube feeding tolerance every 3 days.
[2024-04-08] MEDS: METOPROLOL TARTRATE 25 MG TABLET 75 MG PO ×2 (13:58→21:55)
[2024-04-08] MEDS: SALINE LOCK FLUSH 10 ML IV PUSH ×2 (14:00→21:55)
--- NOTE | 2024-04-08 14:12 | PCSTNOTE ---
Please refer to the Modified Barium Swallow Evaluation in the EMR.
[2024-04-08] MEDS: APIXABAN 5 MG TABLET PO (16:35)
[2024-04-08 17:09] LABS: Glucose Point of Care 195 mg/dl (65-105)
[2024-04-08 17:19] LABS: Vancomycin Trough 16.9 ug/mL (10.0-20.0)
[2024-04-08] MEDS: VANCOMYCIN 1,500 MG/NS 500 ML 1,500 MG/500 ML BAG 250 MG IVPB (17:55)
--- NOTE | 2024-04-08 17:56 | PM.IMPN ---
Progress Note: A&P Assessment and Plan (1) Acute on chronic respiratory failure with hypoxia and hypercapnia: Code(s): J96.21 - Acute and chronic respiratory failure with hypoxia; J96.22 - Acute and chronic respiratory failure with hypercapnia Status: Acute Assessment and Plan: Patient has chronic respiratory failure secondary to congestive heart failure and COPD. Patient is on home oxygen and CPAP. Patient presented with shortness of breath. Post intubation ABG showed acute on chronic hypercarbic respiratory failure along with hypoxia -04/03: Intubated in the ER -04/07: Extubated successfully continue heparin infusion for now. Switched to Eliquis which is home medication Encourage incentive spirometry -continue bronchodilator -continue vancomycin and cefepime Chest CTA on admission IMPRESSION: Occasional small left lower lobe subsegmental pulmonary emboli Congestive changes including moderate right and small left pleural effusions PCR for flu COVID and RSV were negative (2) Cardiac arrest due to respiratory disorder: Code(s): J98.9 - Respiratory disorder, unspecified; I46.8 - Cardiac arrest due to other underlying condition Status: Acute Assessment and Plan: -Patient had a cardiac arrest that was precipitated by respiratory distress and respiratory failure. She appeared to have COPD exacerbation and was also found to be having small PE on her CTA. Pulmonary edema EKG did not show any ST elevation but she had mildly elevated troponin Patient does have baseline chronic respiratory failure Appreciate cardiology evaluation recommendation -starting home Eliquis, will DC heparin infusion after she takes Eliquis dose 04/04: Echocardiogram Summary 1. Technically challenging exam, definity contrast used to improve visualization. 2. Vigorous left and right ventricular systolic function. EF 65-70%, grade 1 diastolic dysfunction 3. Biatrial dilation. 4. Mild mitral annular calcification. 5. Sclerotic aortic valve which is not significantly stenotic. (3) NUNU (acute kidney injury): Code(s): N17.9 - Acute kidney failure, unspecified Status: Acute Assessment and Plan: Patient with acute kidney injury likely related to cardiac arrest, hypotension, prerenal factors. -urine output gradually improving, creatinine improving after IV fluids 1500 mL over 20 hours -blood pressures have been stable -urine lytes did not show prerenal picture, negative urine eosinophils, CK levels were within normal limits -04/05: Renal ultrasound - 1. Normal right kidney. No hydronephrosis. 2. Left kidney not visualized. Note that the prior CT demonstrates moderate atrophy of left kidney without hydronephrosis -new Shell catheter was inserted on 04/06/2024 with improved urine output, previous Shell catheter was clogged when removed -adequate urine output with improvement in creatinine Continue to monitor urine output, renal function electrolytes -restart her home Lasix Appreciate nephrology following the patient (4) Transaminitis: Code(s): R74.01 - Elevation of levels of liver transaminase levels Status: Acute Assessment and Plan: Elevated AST and ALT Likely secondary to shock liver along with cardiac arrest LFTs trending down, continue to monitor -CK levels within normal limits (5) Elevated troponin: Code(s): R79.89 - Other specified abnormal findings of blood chemistry Status: Acute Assessment and Plan: Secondary to cardiac arrest and PE On heparin infusion -Hold statin due to elevated liver enzymes -continue aspirin, start atorvastatin and metoprolol that she takes at -appreciate cardiology following -echocardiogram as above -EKG reviewed and does not show any ST elevation in shows sinus rhythm (6) Pulmonary embolism: Qualifiers: Pulmonary embolism type: single subsegmental (without acute cor pulmonale) Qualified Code(s): I26.93 - Singl
[2024-04-08] MEDS: hydrALAZINE HCL 20 MG/ML VIAL IV PUSH (23:07)
[2024-04-09] VITALS (41 sets, daily range): BP systolic 124–147; BP diastolic 75–111; PULSE 82–125; RESP 15–33; TEMP 36.7–37.6; O2SAT 92–100
[2024-04-09] MEDS: ALBUTEROL SULFATE NEB 2.5 MG/3 ML INH 5 MG INHALATION ×4 (01:57→20:23)
[2024-04-09] MEDS: IPRATROPIUM BR 0.02% INH SOLN 0.5 MG/2.5 ML VIAL INHALATION ×4 (01:57→20:23)
[2024-04-09] MEDS: SALINE LOCK FLUSH 10 ML IV PUSH ×3 (05:43→20:34)
[2024-04-09] MEDS: CENTRAL LINE FLUSH 10 ML IV PUSH (05:43)
[2024-04-09] MEDS: CEFEPIME 2 GM/NS 50 ML 2 GM/50 ML BAG IVPB ×2 (05:43→17:27)
[2024-04-09] MEDS: hydrALAZINE HCL 20 MG/ML VIAL IV PUSH (05:45)
[2024-04-09 06:09] LABS: Hematocrit 36.5 % (37.0-47.0); Hemoglobin 11.6 g/dL (12.0-15.0); Mean Corpuscular HGB Conc 31.8 g/dl (32-36); Mean Corpuscular Hemoglobin 32.3 pg (26-34); Mean Corpuscular Volume 101.7 fl (80-100); Mean Platelet Volume 12.2 fl (7.4-10.4); Platelet Count Result 262 k/mm3 (150-375); Red Blood Count 3.59 M/mm3 (4.2-5.4); Red Cell Distribution Width 13.5 % (11.5-14.5); White Blood Count 19.8 K/mm3 (4.5-10.0)
[2024-04-09 06:30] LABS: Alanine Aminotransferase 163 U/L (6-35); Albumin Level 3.4 g/dL (3.5-5.1); Alkaline Phosphatase 83 U/L (38-126); Aspartate Amino Transferase 32 U/L (14-36); Bilirubin,Total 0.7 mg/dL (0.2-1.3); Blood Urea Nitrogen 57 mg/dL (7-17); Calcium 8.9 mg/dL (8.4-10.2); Carbon Dioxide > 40 mmol/L (22-30); Chloride 93 mmol/L (98-107); Estimated CRCL calculation 46 ml/min; Estimated Glomerular Filt Rate 38; Glucose 118 mg/dL (65-110); Magnesium 1.8 mg/dL (1.6-2.3); Phosphorus 4.4 mg/dL (2.5-4.5); Potassium 4.4 mmol/L (3.4-5.0); Sodium 139 mmol/L (137-145)
[2024-04-09] MEDS: METOPROLOL TARTRATE 25 MG TABLET 75 MG PO (06:54)
[2024-04-09 08:03] LABS: Glucose Point of Care 136 mg/dl (65-105)
[2024-04-09] MEDS: METOPROLOL TARTRATE 25 MG TABLET PO (08:41)
[2024-04-09] MEDS: TOLNAFTATE 1% POWDER 45 GM BTL 1 APPLIC TOPICAL ×2 (08:41→20:35)
[2024-04-09] MEDS: APIXABAN 5 MG TABLET PO ×2 (08:41→17:27)
[2024-04-09] MEDS: FUROSEMIDE 40 MG TABLET PO (08:41)
[2024-04-09] MEDS: amLODIPine BESYLATE 10 MG TABLET PO (08:41)
[2024-04-09] MEDS: ATORVASTATIN 20 MG TABLET PO (08:41)
[2024-04-09] MEDS: LOSARTAN POTASSIUM 50 MG TABLET PO (08:41)
[2024-04-09] MEDS: PANTOPRAZOLE SODIUM IV 40 MG VIAL IV PUSH (08:41)
[2024-04-09] MEDS: acetaZOLAMIDE SODIUM FOR INJ 500 MG VIAL IV PUSH (08:42)
--- NOTE | 2024-04-09 09:03 | P.PNNP_ITS ---
Progress Note: A&P Assessment and Plan (1) NUNU (acute kidney injury): Code(s): N17.9 - Acute kidney failure, unspecified Status: Acute Assessment and Plan: * Acute kidney injury. * evalutaion to date: * urine electrolytes prerenal * urine eosinophils negative * mild proteinuria * renal u/s and CT without obstruction - left kidney atrophy noted * CPK normal * suspect ATN with multifactorial etiology: * respiratory + cardiac arrest * previous hemodynamic instability/hypotension * pre-renal factors(?) * NSAID use prior to admission * contrast exposure (CTA of chest) * infection/sepsis (bacteremia)s/p trial of IVFs * Shell malfunction (i.e. clogged). This was replaced and the patient made a lot of urine after that. * Creatinine is down to 1.4 * Urine output 4685 * Blood pressure is better. * She has received some fluids. * She is off the NSAIDs. * She is getting antibiotics infection is better. * Shell is working again. * Recovering from acute kidney injury. (2) Acute on chronic respiratory failure with hypoxia and hypercapnia: Code(s): J96.21 - Acute and chronic respiratory failure with hypoxia; J96.22 - Acute and chronic respiratory failure with hypercapnia Status: Acute Assessment and Plan: * resolving * Off the ventilator (3) Cardiac arrest due to respiratory disorder: Code(s): J98.9 - Respiratory disorder, unspecified; I46.8 - Cardiac arrest due to other underlying condition Status: Acute Assessment and Plan: * precipitated by respiratory distress/failure (from COPD + pulmonary embolism +/- pulmonary edema) * troponins mildly elevated but no EKG changes noted * Cardiology on the case (4) Sepsis: Code(s): A41.9 - Sepsis, unspecified organism Status: Acute Assessment and Plan: * due to bacteremia (source not clear) * UA suggestive of UTI but culture negative so far * CT of chest without evidence of pneumonia * blood cultures with Staph epidermis * BP better with IVFs * on cefepime and vancomycin (5) Pulmonary embolism: Qualifiers: Pulmonary embolism type: single subsegmental (without acute cor pulmonale) Qualified Code(s): I26.93 - Single subsegmental pulmonary embolism without acute cor pulmonale Code(s): I26.99 - Other pulmonary embolism without acute cor pulmonale Status: Acute Assessment and Plan: * as noted by CTA of chest * on heparin gtt (6) Lactic acidosis: Code(s): E87.20 - Acidosis, unspecified Status: Acute Assessment and Plan: * due to respiratory/cardiac arrest + sepsis * CO2 now high. * Off bicarb supplement (7) Hypertension: Code(s): I10 - Essential (primary) hypertension Status: Chronic Assessment and Plan: * Systolic running in the 120s to 160s * On carvedilol 6.25, clonidine patch, and nicardipine drip. Will continue to follow. Subjective Date/time seen: 04/09/24 09:03 Interval history: Patient feels better today. She ate some breakfast. She is getting a nebulizer treatment right now Exam Narrative: General: large female intubated/sedated and on mechanical ventilation Heart: normal S1 and S2; no rub or gallop Lungs: coarse breath sounds Abdomen: soft, nontender, nondistended, decreased bowel sounds; colostomy in place Extremities: no cyanosis or clubbing; trace edema Skin: No rash Ob
--- NOTE | 2024-04-09 09:03 | PM.PNNEP ---
Progress Note: A&P Assessment and Plan (1) NUNU (acute kidney injury): Code(s): N17.9 - Acute kidney failure, unspecified Status: Acute Assessment and Plan: Acute kidney injury. evalutaion to date: urine electrolytes prerenal urine eosinophils negative mild proteinuria renal u/s and CT without obstruction - left kidney atrophy noted CPK normal suspect ATN with multifactorial etiology: respiratory + cardiac arrest previous hemodynamic instability/hypotension pre-renal factors(?) NSAID use prior to admission contrast exposure (CTA of chest) infection/sepsis (bacteremia)s/p trial of IVFs Shell malfunction (i.e. clogged). This was replaced and the patient made a lot of urine after that. Creatinine is down to 1.4 Urine output 4685 Blood pressure is better. She has received some fluids. She is off the NSAIDs. She is getting antibiotics infection is better. Shell is working again. Recovering from acute kidney injury. (2) Acute on chronic respiratory failure with hypoxia and hypercapnia: Code(s): J96.21 - Acute and chronic respiratory failure with hypoxia; J96.22 - Acute and chronic respiratory failure with hypercapnia Status: Acute Assessment and Plan: resolving Off the ventilator (3) Cardiac arrest due to respiratory disorder: Code(s): J98.9 - Respiratory disorder, unspecified; I46.8 - Cardiac arrest due to other underlying condition Status: Acute Assessment and Plan: precipitated by respiratory distress/failure (from COPD + pulmonary embolism +/- pulmonary edema) troponins mildly elevated but no EKG changes noted Cardiology on the case (4) Sepsis: Code(s): A41.9 - Sepsis, unspecified organism Status: Acute Assessment and Plan: due to bacteremia (source not clear) UA suggestive of UTI but culture negative so far CT of chest without evidence of pneumonia blood cultures with Staph epidermis BP better with IVFs on cefepime and vancomycin (5) Pulmonary embolism: Qualifiers: Pulmonary embolism type: single subsegmental (without acute cor pulmonale) Qualified Code(s): I26.93 - Single subsegmental pulmonary embolism without acute cor pulmonale Code(s): I26.99 - Other pulmonary embolism without acute cor pulmonale Status: Acute Assessment and Plan: as noted by CTA of chest on heparin gtt (6) Lactic acidosis: Code(s): E87.20 - Acidosis, unspecified Status: Acute Assessment and Plan: due to respiratory/cardiac arrest + sepsis CO2 now high. Off bicarb supplement (7) Hypertension: Code(s): I10 - Essential (primary) hypertension Status: Chronic Assessment and Plan: Systolic running in the 120s to 160s On carvedilol 6.25, clonidine patch, and nicardipine drip. Will continue to follow. Subjective Date/time seen: 04/09/24 09:03 Interval history: Patient feels better today. She ate some breakfast. She is getting a nebulizer treatment right now Exam Narrative: General: large female intubated/sedated and on mechanical ventilation Heart: normal S1 and S2; no rub or gallop Lungs: coarse breath sounds Abdomen: soft, nontender, nondistended, decreased bowel sounds; colostomy in place Extremities: no cyanosis or clubbing; trace edema Skin: No rash Objective Data Vital Signs Vital Signs: Vital Signs - 24 hr 04/08/24 09:54 04/08/24 10:00 04/08/24 10:00 Temperature 97.9 F Pulse Rate 102 H 108 H 103 H Respiratory Rate 19 Blood Pressure 139/93 H 141/83 H Pulse Oximetry 96 Oxygen Delivery Oxygen Flow Rate Fraction of Inspired Oxygen 04/08/24 10:55 04/08/24 10:56 04/08/24 12:00 Temperature 97.6 F Pulse Rate 103 H 103 H 122 H Respiratory Rate 26 H Blood Pressure 133/86 133/86 131/85 Pulse Oximetry 94 Oxygen Delivery Oxygen Flow Rate Fraction of Inspired
--- NOTE | 2024-04-09 11:12 | PC.NURSE ---
This patient, Isabel De Anda, was transferred to [facility] on 04/09/24 at 1100. Personal belongings sent with patient. Report given to Conrado ASTUDILLO. Appropriate documentation sent with patient.
--- NOTE | 2024-04-09 11:52 | P.PNIM_ITS ---
Progress Note: A&P Assessment and Plan (1) Acute on chronic respiratory failure with hypoxia and hypercapnia: Code(s): J96.21 - Acute and chronic respiratory failure with hypoxia; J96.22 - Acute and chronic respiratory failure with hypercapnia Status: Acute Assessment and Plan: Patient has chronic respiratory failure secondary to congestive heart failure and COPD. Patient is on home oxygen and CPAP. Patient's events started with shortness of breath. Post intubation ABG showed acute on chronic hypercarbic respiratory failure along with hypoxia -04/03: Intubated in the ER -04/07: Extubated successfully Continue Eliquis Encourage incentive spirometry -continue bronchodilator -continue vancomycin and cefepime Chest CTA on admission IMPRESSION: Occasional small left lower lobe subsegmental pulmonary emboli Congestive changes including moderate right and small left pleural effusions PCR for flu COVID and RSV were negative (2) Cardiac arrest due to respiratory disorder: Code(s): J98.9 - Respiratory disorder, unspecified; I46.8 - Cardiac arrest due to other underlying condition Status: Acute Assessment and Plan: -Patient had a cardiac arrest that was precipitated by respiratory distress and respiratory failure. She appeared to have COPD exacerbation and was also found to be having small PE on her CTA. Pulmonary edema EKG did not show any ST elevation but she had mildly elevated troponin Patient does have baseline chronic respiratory failure Appreciate cardiology evaluation recommendation -continue Eliquis 04/04: Echocardiogram Summary 1. Technically challenging exam, definity contrast used to improve visualization. 2. Vigorous left and right ventricular systolic function. EF 65-70%, grade 1 diastolic dysfunction 3. Biatrial dilation. 4. Mild mitral annular calcification. 5. Sclerotic aortic valve which is not significantly stenotic. (3) NUNU (acute kidney injury): Code(s): N17.9 - Acute kidney failure, unspecified Status: Acute Assessment and Plan: Patient with acute kidney injury likely related to cardiac arrest, hypotension, prerenal factors. -urine output gradually improving, creatinine improving after IV fluids 1500 mL over 20 hours -blood pressures have been stable -urine lytes did not show prerenal picture, negative urine eosinophils, CK levels were within normal limits -04/05: Renal ultrasound - 1. Normal right kidney. No hydronephrosis. 2. Left kidney not visualized. Note that the prior CT demonstrates moderate atrophy of left kidney without hydronephrosis -new Shell catheter was inserted on 04/06/2024 with improved urine output, previous Shell catheter was clogged when removed -adequate urine output with improvement in creatinine Continue to monitor urine output, renal function electrolytes -continue home Lasix, will give a dose of acetazolamide/Diamox Appreciate nephrology following the patient (4) Transaminitis: Code(s): R74.01 - Elevation of levels of liver transaminase levels Status: Acute Assessment and Plan: Elevated AST and ALT Likely secondary to shock liver along with cardiac arrest LFTs trending down, continue to monitor -CK levels within normal limits (5) Elevated troponin: Code(s): R79.89 - Other specified abnormal findings of blood chemistry Status: Acute Assessment and Plan: Secondary to cardiac arrest and PE On heparin infusion -Hold statin due to elevated liver enzymes -continue aspirin, start atorvastatin and metoprolol that she takes at -appreciate ca
[2024-04-09] MEDS: METOPROLOL TARTRATE 50 MG TAB 100 MG PO (20:34)
[2024-04-10] VITALS (25 sets, daily range): BP systolic 123–155; BP diastolic 69–105; PULSE 77–103; RESP 18–24; TEMP 36.5–37.1; O2SAT 95–98
[2024-04-10] MEDS: traMADol HCL (*CRX) 50 MG TABLET PO ×3 (00:48→17:09)
--- NOTE | 2024-04-10 01:23 | PCRCNOTE ---
Pt refused her 0200 breathing tx stating she is just about to fall asleep and does not want it. Pt understands that her next scheduled breathing treatment is at 0800 and she states she will receive that one.
[2024-04-10 04:54] LABS: Albumin Level 3.2 g/dL (3.5-5.1); Blood Urea Nitrogen 53 mg/dL (7-17); Calcium 8.5 mg/dL (8.4-10.2); Carbon Dioxide > 40 mmol/L (22-30); Chloride 93 mmol/L (98-107); Estimated CRCL calculation 40 ml/min; Estimated Glomerular Filt Rate 33; Glucose 169 mg/dL (65-110); Phosphorus 4.3 mg/dL (2.5-4.5); Potassium 3.8 mmol/L (3.4-5.0); Sodium 140 mmol/L (137-145)
[2024-04-10 05:17] LABS: Vancomycin Trough 17.5 ug/mL (10.0-20.0)
[2024-04-10] MEDS: VANCOMYCIN 1,500 MG/NS 500 ML 1,500 MG/500 ML BAG 250 MG IVPB (06:19)
[2024-04-10] MEDS: SALINE LOCK FLUSH 10 ML IV PUSH ×2 (06:20→12:38)
[2024-04-10] MEDS: CEFEPIME 2 GM/NS 50 ML 2 GM/50 ML BAG IVPB ×2 (06:20→17:09)
[2024-04-10] MEDS: IPRATROPIUM BR 0.02% INH SOLN 0.5 MG/2.5 ML VIAL INHALATION ×3 (08:05→20:01)
[2024-04-10] MEDS: ALBUTEROL SULFATE NEB 2.5 MG/3 ML INH 5 MG INHALATION ×3 (08:05→20:00)
--- NOTE | 2024-04-10 08:24 | P.PNNP_ITS ---
Progress Note: A&P Assessment and Plan (1) NUNU (acute kidney injury): Code(s): N17.9 - Acute kidney failure, unspecified Status: Acute Assessment and Plan: * Acute kidney injury. * evalutaion to date: * urine electrolytes prerenal * urine eosinophils negative * mild proteinuria * renal u/s and CT without obstruction - left kidney atrophy noted * CPK normal * suspect ATN with multifactorial etiology: * respiratory + cardiac arrest * previous hemodynamic instability/hypotension * pre-renal factors(?) * NSAID use prior to admission * contrast exposure (CTA of chest) * infection/sepsis (bacteremia)s/p trial of IVFs * Meloxicam prior to admission * Shell malfunction (i.e. clogged). This was replaced and the patient made a lot of urine after that. * Creatinine is back up to 1.6. * Urine output over 3L * Blood pressure is good. * She has received some fluids. * She was third-spacing because of her sepsis and now has been mobilizing it. She is on Lasix 40mg per day. I will hold the Lasix for today and reassess tomorrow. * She is off the NSAIDs. * She is getting cefepime and vancomycin. * She is afebrile and white count is down a little bit at 19.8. * Shell is working again. * Recovering from acute kidney injury. * Her creatinine is a little higher today. This could be because of the Lasix. She is also on vancomycin. Consider changing to linezolid? (2) Acute on chronic respiratory failure with hypoxia and hypercapnia: Code(s): J96.21 - Acute and chronic respiratory failure with hypoxia; J96.22 - Acute and chronic respiratory failure with hypercapnia Status: Acute Assessment and Plan: * resolving * On oxygen by nasal cannula (3) Cardiac arrest due to respiratory disorder: Code(s): J98.9 - Respiratory disorder, unspecified; I46.8 - Cardiac arrest due to other underlying condition Status: Acute Assessment and Plan: * precipitated by respiratory distress/failure (from COPD + pulmonary embolism +/- pulmonary edema) * troponins mildly elevated but no EKG changes noted * Cardiology on the case (4) Sepsis: Code(s): A41.9 - Sepsis, unspecified organism Status: Acute Assessment and Plan: * due to bacteremia (source not clear) * UA suggestive of UTI but culture negative so far * CT of chest without evidence of pneumonia * blood cultures with Staph epidermis * BP better with IVFs * on cefepime and vancomycin. Consider changing latter to linezolid question (5) Pulmonary embolism: Qualifiers: Pulmonary embolism type: single subsegmental (without acute cor pulmonale) Qualified Code(s): I26.93 - Single subsegmental pulmonary embolism without acute cor pulmonale Code(s): I26.99 - Other pulmonary embolism without acute cor pulmonale Status: Acute Assessment and Plan: * as noted by CTA of chest * on heparin gtt (6) Lactic acidosis: Code(s): E87.20 - Acidosis, unspecified Status: Acute Assessment and Plan: * due to respiratory/cardiac arrest + sepsis * CO2 now high. * Off bicarb supplement (7) Hypertension: Code(s): I10 - Essential (primary) hypertension Status: Chronic Assessment and Plan: * Systolic running in the 120s to 150s * On amlodipine, losartan, Will continue to follow. Subjective Date/time seen: 04/10/24 08:24 Interval history: Isabel is feeling good today. No shortness of breath.
--- NOTE | 2024-04-10 08:24 | PM.PNNEP ---
Progress Note: A&P Assessment and Plan (1) NUNU (acute kidney injury): Code(s): N17.9 - Acute kidney failure, unspecified Status: Acute Assessment and Plan: Acute kidney injury. evalutaion to date: urine electrolytes prerenal urine eosinophils negative mild proteinuria renal u/s and CT without obstruction - left kidney atrophy noted CPK normal suspect ATN with multifactorial etiology: respiratory + cardiac arrest previous hemodynamic instability/hypotension pre-renal factors(?) NSAID use prior to admission contrast exposure (CTA of chest) infection/sepsis (bacteremia)s/p trial of IVFs Meloxicam prior to admission Shell malfunction (i.e. clogged). This was replaced and the patient made a lot of urine after that. Creatinine is back up to 1.6. Urine output over 3L Blood pressure is good. She has received some fluids. She was third-spacing because of her sepsis and now has been mobilizing it. She is on Lasix 40mg per day. I will hold the Lasix for today and reassess tomorrow. She is off the NSAIDs. She is getting cefepime and vancomycin. She is afebrile and white count is down a little bit at 19.8. Shell is working again. Recovering from acute kidney injury. Her creatinine is a little higher today. This could be because of the Lasix. She is also on vancomycin. Consider changing to linezolid? (2) Acute on chronic respiratory failure with hypoxia and hypercapnia: Code(s): J96.21 - Acute and chronic respiratory failure with hypoxia; J96.22 - Acute and chronic respiratory failure with hypercapnia Status: Acute Assessment and Plan: resolving On oxygen by nasal cannula (3) Cardiac arrest due to respiratory disorder: Code(s): J98.9 - Respiratory disorder, unspecified; I46.8 - Cardiac arrest due to other underlying condition Status: Acute Assessment and Plan: precipitated by respiratory distress/failure (from COPD + pulmonary embolism +/- pulmonary edema) troponins mildly elevated but no EKG changes noted Cardiology on the case (4) Sepsis: Code(s): A41.9 - Sepsis, unspecified organism Status: Acute Assessment and Plan: due to bacteremia (source not clear) UA suggestive of UTI but culture negative so far CT of chest without evidence of pneumonia blood cultures with Staph epidermis BP better with IVFs on cefepime and vancomycin. Consider changing latter to linezolid question (5) Pulmonary embolism: Qualifiers: Pulmonary embolism type: single subsegmental (without acute cor pulmonale) Qualified Code(s): I26.93 - Single subsegmental pulmonary embolism without acute cor pulmonale Code(s): I26.99 - Other pulmonary embolism without acute cor pulmonale Status: Acute Assessment and Plan: as noted by CTA of chest on heparin gtt (6) Lactic acidosis: Code(s): E87.20 - Acidosis, unspecified Status: Acute Assessment and Plan: due to respiratory/cardiac arrest + sepsis CO2 now high. Off bicarb supplement (7) Hypertension: Code(s): I10 - Essential (primary) hypertension Status: Chronic Assessment and Plan: Systolic running in the 120s to 150s On amlodipine, losartan, Will continue to follow. Subjective Date/time seen: 04/10/24 08:24 Interval history: Isabel is feeling good today. No shortness of breath. She is still on some oxygen. She is sitting up in a chair and just finished breakfast Exam Narrative: General: large female intubated/sedated and on mechanical ventilation Heart: normal S1 and S2; no rub or gallop Lungs: Clear breath sounds Abdomen: soft, nontender, nondistended, decreased bowel sounds; colostomy in place Extremities: trace edema Skin: No rash Objective Data Vital Signs Vital Signs: Vital Signs - 24 hr 04/09/24 08:41 04/09/24 08:45 04/09/24 08:45 Temp
[2024-04-10] MEDS: ATORVASTATIN 20 MG TABLET PO (08:38)
[2024-04-10] MEDS: METOPROLOL TARTRATE 50 MG TAB 100 MG PO ×2 (08:39→20:50)
[2024-04-10] MEDS: PANTOPRAZOLE SODIUM IV 40 MG VIAL IV PUSH (08:39)
[2024-04-10] MEDS: APIXABAN 5 MG TABLET PO ×2 (08:39→17:09)
[2024-04-10] MEDS: LOSARTAN POTASSIUM 50 MG TABLET PO (08:39)
[2024-04-10] MEDS: TOLNAFTATE 1% POWDER 45 GM BTL 1 APPLIC TOPICAL ×2 (08:39→20:51)
[2024-04-10] MEDS: amLODIPine BESYLATE 10 MG TABLET PO (08:39)
--- NOTE | 2024-04-10 12:42 | PM.IMPN ---
Progress Note: A&P Assessment and Plan (1) Acute on chronic respiratory failure with hypoxia and hypercapnia: Code(s): J96.21 - Acute and chronic respiratory failure with hypoxia; J96.22 - Acute and chronic respiratory failure with hypercapnia Status: Acute Assessment and Plan: Patient has chronic respiratory failure secondary to congestive heart failure and COPD. Patient is on home oxygen and CPAP. Patient's events started with shortness of breath. Post intubation ABG showed acute on chronic hypercarbic respiratory failure along with hypoxia -04/03: Intubated in the ER -04/07: Extubated successfully Continue Eliquis Encourage incentive spirometry -continue bronchodilator -continue vancomycin and cefepime Chest CTA on admission IMPRESSION: Occasional small left lower lobe subsegmental pulmonary emboli Congestive changes including moderate right and small left pleural effusions PCR for flu COVID and RSV were negative (2) Cardiac arrest due to respiratory disorder: Code(s): J98.9 - Respiratory disorder, unspecified; I46.8 - Cardiac arrest due to other underlying condition Status: Acute Assessment and Plan: -Patient had a cardiac arrest that was precipitated by respiratory distress and respiratory failure. She appeared to have COPD exacerbation and was also found to be having small PE on her CTA. Pulmonary edema EKG did not show any ST elevation but she had mildly elevated troponin Patient does have baseline chronic respiratory failure Appreciate cardiology evaluation recommendation -continue Eliquis 04/04: Echocardiogram Summary 1. Technically challenging exam, definity contrast used to improve visualization. 2. Vigorous left and right ventricular systolic function. EF 65-70%, grade 1 diastolic dysfunction 3. Biatrial dilation. 4. Mild mitral annular calcification. 5. Sclerotic aortic valve which is not significantly stenotic. (3) NUNU (acute kidney injury): Code(s): N17.9 - Acute kidney failure, unspecified Status: Acute Assessment and Plan: Patient with acute kidney injury likely related to cardiac arrest, hypotension, prerenal factors. -urine output gradually improving, creatinine improving after IV fluids 1500 mL over 20 hours -blood pressures have been stable -urine lytes did not show prerenal picture, negative urine eosinophils, CK levels were within normal limits -04/05: Renal ultrasound - 1. Normal right kidney. No hydronephrosis. 2. Left kidney not visualized. Note that the prior CT demonstrates moderate atrophy of left kidney without hydronephrosis -new Shell catheter was inserted on 04/06/2024 with improved urine output, previous Shell catheter was clogged when removed -adequate urine output with improvement in creatinine Continue to monitor urine output, renal function electrolytes -continue home Lasix, which is on hold due to slight bump in creatinine today Appreciate nephrology following the patient (4) Transaminitis: Code(s): R74.01 - Elevation of levels of liver transaminase levels Status: Acute Assessment and Plan: Elevated AST and ALT Likely secondary to shock liver along with cardiac arrest LFTs trending down, continue to monitor -CK levels within normal limits (5) Elevated troponin: Code(s): R79.89 - Other specified abnormal findings of blood chemistry Status: Acute Assessment and Plan: Secondary to cardiac arrest and PE On heparin infusion -Hold statin due to elevated liver enzymes -continue aspirin, start atorvastatin and metoprolol that she takes at -appreciate cardiology following -echocardiogram as above -EKG reviewed and does not show any ST elevation in shows sinus rhythm (6) Pulmonary embolism: Qualifiers: Pulmonary embolism type: single subsegmental (without acute cor pulmonale) Qualified Code(s): I26.93 - Single subsegmental pulmonary embolism without acute cor pulmonale
[2024-04-10 13:21] LABS: Basophils Absolute Auto 0.1 K/mm3 (0.0-0.1); Basophils Percent Auto 0.6 % (0.2-1.2); Eosinophils Absolute Auto 0.4 K/mm3 (0-0.3); Eosinophils Percent Auto 1.8 % (0-4.4); Hematocrit 34.7 % (37.0-47.0); Hemoglobin 10.8 g/dL (12.0-15.0); Immature Granulocyte Absolute 1.15 K/mm3 (0.00-0.031); Immature Granulocyte Percent A 5.8 % (0-0.5); Lymphocytes Absolute Auto 1.06 K/mm3 (0.9-3.2); Lymphocytes Percent Auto 5.3 % (18.3-44.2); Mean Corpuscular HGB Conc 31.1 g/dl (32-36); Mean Platelet Volume 11.8 fl (7.4-10.4); Monocytes Absolute Auto 2.8 K/mm3 (0.1-0.6); Neutrophils Absolute Auto 14.5 K/mm3 (1.3-6.7); Neutrophils Percent Auto 72.5 % (45.5-73.1); Platelet Count Result 253 k/mm3 (150-375); Red Blood Count 3.37 M/mm3 (4.2-5.4); Red Cell Distribution Width 13.4 % (11.5-14.5); White Blood Count 19.9 K/mm3 (4.5-10.0)
[2024-04-10] MEDS: ACETAMINOPHEN ELIXIR 325 MG/10.15 ML UDC 650 MG PO (13:27)
[2024-04-10 13:42] LABS: Platelet Estimate Adequate (Adequate)
[2024-04-10 13:43] LABS: Anisocytosis 1+; Macrocytosis 1+ (NORMAL); Schistocytes None Seen
[2024-04-10] MEDS: MELATONIN 5 MG TABLET PO (21:21)
[2024-04-11] VITALS (27 sets, daily range): BP systolic 136–154; BP diastolic 84–92; PULSE 77–102; RESP 17–24; TEMP 36.1–36.5; O2SAT 94–97
[2024-04-11] MEDS: SALINE LOCK FLUSH 10 ML IV PUSH ×3 (00:06→21:59)
[2024-04-11] MEDS: ALBUTEROL SULFATE NEB 2.5 MG/3 ML INH 5 MG INHALATION ×3 (02:40→19:51)
[2024-04-11] MEDS: IPRATROPIUM BR 0.02% INH SOLN 0.5 MG/2.5 ML VIAL INHALATION ×3 (02:40→19:54)
[2024-04-11] MEDS: traMADol HCL (*CRX) 50 MG TABLET PO ×2 (03:19→13:39)
[2024-04-11] MEDS: CEFEPIME 2 GM/NS 50 ML 2 GM/50 ML BAG IVPB (05:32)
[2024-04-11] MEDS: METOPROLOL TARTRATE 50 MG TAB 100 MG PO ×2 (08:25→20:16)
[2024-04-11] MEDS: ATORVASTATIN 20 MG TABLET PO (08:25)
[2024-04-11] MEDS: LOSARTAN POTASSIUM 50 MG TABLET PO (08:25)
[2024-04-11] MEDS: PANTOPRAZOLE SODIUM IV 40 MG VIAL IV PUSH (08:25)
[2024-04-11] MEDS: amLODIPine BESYLATE 10 MG TABLET PO (08:25)
[2024-04-11] MEDS: TOLNAFTATE 1% POWDER 45 GM BTL 1 APPLIC TOPICAL ×2 (08:25→20:17)
[2024-04-11] MEDS: APIXABAN 5 MG TABLET PO ×2 (08:25→17:23)
--- NOTE | 2024-04-11 10:16 | PM.PNNEP ---
Progress Note: A&P Assessment and Plan (1) NUNU (acute kidney injury): Code(s): N17.9 - Acute kidney failure, unspecified Status: Acute Assessment and Plan: improvement noted evaluation to date noted: urine electrolytes prerenal urine eosinophils negative mild proteinuria renal u/s and CT without obstruction - left kidney atrophy noted CPK normal suspect ATN with multifactorial etiology: respiratory + cardiac arrest previous hemodynamic instability/hypotension pre-renal factors(?) NSAID use prior to admission contrast exposure (CTA of chest) infection/sepsis (bacteremia) sosa malfunction (i.e. clogged) good urine output noted follow trend of repeat labs and UOP (2) Acute on chronic respiratory failure with hypoxia and hypercapnia: Code(s): J96.21 - Acute and chronic respiratory failure with hypoxia; J96.22 - Acute and chronic respiratory failure with hypercapnia Status: Acute Assessment and Plan: resolving continue supportive therapy on chronic home oxygen (3) Cardiac arrest due to respiratory disorder: Code(s): J98.9 - Respiratory disorder, unspecified; I46.8 - Cardiac arrest due to other underlying condition Status: Acute Assessment and Plan: precipitated by respiratory distress/failure (from COPD + pulmonary embolism +/- pulmonary edema) troponins mildly elevated but no EKG changes noted Cardiology recommendations noted (4) Sepsis: Code(s): A41.9 - Sepsis, unspecified organism Status: Acute Assessment and Plan: due to bacteremia (source not clear) UA suggestive of UTI but culture negative so far CT of chest without evidence of pneumonia blood cultures with Staph epidermis BP better with IVFs on antibiotics (5) Pulmonary embolism: Qualifiers: Pulmonary embolism type: single subsegmental (without acute cor pulmonale) Qualified Code(s): I26.93 - Single subsegmental pulmonary embolism without acute cor pulmonale Code(s): I26.99 - Other pulmonary embolism without acute cor pulmonale Status: Acute Assessment and Plan: as noted by CTA of chest on Eliquis (6) Hypertension: Code(s): I10 - Essential (primary) hypertension Status: Chronic Assessment and Plan: reasonable control continue current medications follow trend of hemodynamics Will continue to follow. Subjective Date/time seen: 04/11/24 10:16 Interval history: Follow-up for acute kidney injury/acute renal failure. Chart reviewed since last seen -- diuretics on hold due to rise in creatinine by yesterday labs; continues to make reasonable urine output at this time; AM labs pending at this time; no apparent distress noted; breathing/respiratory status appears to relatively stable at the time of my visit. Exam Narrative: General: large female sitting up in chair in NAD Heart: normal S1 and S2; no rub or gallop Lungs: clear anteriorly; decreased at bases Abdomen: soft, nontender, nondistended, +BS; colostomy in place Extremities: trace edema present Skin: no nodules Objective Data Vital Signs Vital Signs: Vital Signs Temp Pulse Resp BP Pulse Ox O2 Del Method O2 Flow Rate 04/11/24 10:00 91 04/11/24 08:00 94 Nasal Cannula 4 04/11/24 08:00 89 04/11/24 08:25 92 04/11/24 08:00 97.2 F L 92 22 H 154/91 H 96 04/11/24 06:17 85 04/11/24 04:40 97.7 F 83 24 H 153/92 H 97 04/11/24 04:00 91 04/11/24 04:00 86 22 H 97 Autopap 04/11/24 02:53 86 22 H 04/11/24 02:42 90 22 H 04/11/24 02:21 88 04/11/24 00:00 82 04/11/24 00:00 95 18 96 Nasal Cannula 4 04/11/24 01:08 86 97 Autopap 04/10/24 22:00 81 04/10/24 20:00 91 04/10/24 23:51 97.7 F 86 18 138/84 98 04/10/24 20:50 91 04/10/24 20:22 95 96 Autopap 04/10
--- NOTE | 2024-04-11 10:16 | P.PNNP_ITS ---
Progress Note: A&P Assessment and Plan (1) NUNU (acute kidney injury): Code(s): N17.9 - Acute kidney failure, unspecified Status: Acute Assessment and Plan: * improvement noted * evaluation to date noted: * urine electrolytes prerenal * urine eosinophils negative * mild proteinuria * renal u/s and CT without obstruction - left kidney atrophy noted * CPK normal * suspect ATN with multifactorial etiology: * respiratory + cardiac arrest * previous hemodynamic instability/hypotension * pre-renal factors(?) * NSAID use prior to admission * contrast exposure (CTA of chest) * infection/sepsis (bacteremia) * sosa malfunction (i.e. clogged) * good urine output noted * follow trend of repeat labs and UOP (2) Acute on chronic respiratory failure with hypoxia and hypercapnia: Code(s): J96.21 - Acute and chronic respiratory failure with hypoxia; J96.22 - Acute and chronic respiratory failure with hypercapnia Status: Acute Assessment and Plan: * resolving * continue supportive therapy * on chronic home oxygen (3) Cardiac arrest due to respiratory disorder: Code(s): J98.9 - Respiratory disorder, unspecified; I46.8 - Cardiac arrest due to other underlying condition Status: Acute Assessment and Plan: * precipitated by respiratory distress/failure (from COPD + pulmonary embolism +/- pulmonary edema) * troponins mildly elevated but no EKG changes noted * Cardiology recommendations noted (4) Sepsis: Code(s): A41.9 - Sepsis, unspecified organism Status: Acute Assessment and Plan: * due to bacteremia (source not clear) * UA suggestive of UTI but culture negative so far * CT of chest without evidence of pneumonia * blood cultures with Staph epidermis * BP better with IVFs * on antibiotics (5) Pulmonary embolism: Qualifiers: Pulmonary embolism type: single subsegmental (without acute cor pulmonale) Qualified Code(s): I26.93 - Single subsegmental pulmonary embolism without acute cor pulmonale Code(s): I26.99 - Other pulmonary embolism without acute cor pulmonale Status: Acute Assessment and Plan: * as noted by CTA of chest * on Eliquis (6) Hypertension: Code(s): I10 - Essential (primary) hypertension Status: Chronic Assessment and Plan: * reasonable control * continue current medications * follow trend of hemodynamics Will continue to follow. Subjective Date/time seen: 04/11/24 10:16 Interval history: Follow-up for acute kidney injury/acute renal failure. Chart reviewed since last seen -- diuretics on hold due to rise in creatinine by yesterday labs; continues to make reasonable urine output at this time; AM labs pending at this time; no apparent distress noted; breathing/respiratory status appears to relatively stable at the time of my visit. Exam Narrative: General: large female sitting up in chair in NAD Heart: normal S1 and S2; no rub or gallop Lungs: clear anteriorly; decreased at bases Abdomen: soft, nontender, nondistended, +BS; colostomy in place Extremities: trace edema present Skin: no nodules Objective Data Vital Signs Vital Signs: Vital Signs Temp Pulse Resp BP Pulse Ox O2 Del Method O2 Flow Rate 04/11/24 10:00 91 04/11/24 08:00 94 Nasal Cannula 4
[2024-04-11 11:37] LABS: Basophils Absolute Auto 0.1 K/mm3 (0.0-0.1); Basophils Percent Auto 0.6 % (0.2-1.2); Eosinophils Absolute Auto 0.5 K/mm3 (0-0.3); Eosinophils Percent Auto 2.5 % (0-4.4); Hematocrit 34.7 % (37.0-47.0); Hemoglobin 10.5 g/dL (12.0-15.0); Immature Granulocyte Absolute 1.05 K/mm3 (0.00-0.031); Immature Granulocyte Percent A 5.6 % (0-0.5); Lymphocytes Absolute Auto 1.11 K/mm3 (0.9-3.2); Mean Corpuscular HGB Conc 30.3 g/dl (32-36); Mean Corpuscular Hemoglobin 31.4 pg (26-34); Mean Corpuscular Volume 103.9 fl (80-100); Monocytes Absolute Auto 2.2 K/mm3 (0.1-0.6); Monocytes Percent Auto 11.6 % (2.6-8.5); Neutrophils Absolute Auto 13.7 K/mm3 (1.3-6.7); Neutrophils Percent Auto 73.7 % (45.5-73.1); Platelet Count Result 273 k/mm3 (150-375); Red Blood Count 3.34 M/mm3 (4.2-5.4); Red Cell Distribution Width 13.2 % (11.5-14.5); White Blood Count 18.6 K/mm3 (4.5-10.0)
[2024-04-11 12:22] LABS: Alanine Aminotransferase 85 U/L (6-35); Albumin Level 3.2 g/dL (3.5-5.1); Alkaline Phosphatase 65 U/L (38-126); Anion Gap 3 mmol/L (4-12); Aspartate Amino Transferase 24 U/L (14-36); Bilirubin,Total 0.5 mg/dL (0.2-1.3); Blood Urea Nitrogen 42 mg/dL (7-17); Calcium 8.7 mg/dL (8.4-10.2); Carbon Dioxide 39 mmol/L (22-30); Chloride 96 mmol/L (98-107); Estimated CRCL calculation 46 ml/min; Estimated Glomerular Filt Rate 38; Glucose 178 mg/dL (65-110); Magnesium 1.8 mg/dL (1.6-2.3); Phosphorus 3.9 mg/dL (2.5-4.5); Sodium 138 mmol/L (137-145)
[2024-04-11] MEDS: LINEZOLID 600 MG TABLET PO ×2 (12:22→20:16)
[2024-04-11 12:38] LABS: Anisocytosis 1+; Hypochromasia 1+; Platelet Estimate Adequate (Adequate); Schistocytes None Seen
[2024-04-11 12:39] LABS: Atypical Lymphocytes Present
--- NOTE | 2024-04-11 13:12 | PCNFU ---
Nutrition Follow-Up Complete: Suboptimal Energy Intake as related to mechanical ventilation as evidenced by NPO/Tube feedings. Goal:Meet estimated nutritional needs. Pt current nutrition is Heart healthy. Nutrition recommendation: Continue with current plan of care Last recorded weight is 111.7 kg. Bowel Motility: +BM 04/09 Labs Reviewed: Hgb:10.8, HCT:34.7, GFR:33, BUN:53, Cr:1.6, Glu:169 Meds Noted:eliquis, lasix, protonix Skin: WNL Additional Notes: Pt on a heart healthy diet, regular consistency per speech recommendations. Intake good at 75% most meals, pt reports excellent appetite and intake, Agree with orders. Continue with current plan of care. Will monitor weight, labs, skin, meds, Follow up in 7 days.
[2024-04-11] MEDS: traZODone HCL 50 MG TABLET PO (20:17)
[2024-04-12] VITALS (17 sets, daily range): BP systolic 127–147; BP diastolic 69–96; PULSE 69–92; RESP 19–20; TEMP 36.6–37.1; O2SAT 95–100
[2024-04-12] MEDS: IPRATROPIUM BR 0.02% INH SOLN 0.5 MG/2.5 ML VIAL INHALATION ×4 (01:18→19:45)
[2024-04-12] MEDS: ALBUTEROL SULFATE NEB 2.5 MG/3 ML INH 5 MG INHALATION ×4 (01:18→19:45)
--- NOTE | 2024-04-12 02:16 | PC.NURSE ---
Sbar tubed to [facility] and verbal report given. Patient transferred from room 200 to 246 via bed with phone, trilogy and all belongings. No change from previous assessment.
[2024-04-12] MEDS: SALINE LOCK FLUSH 10 ML IV PUSH ×3 (06:33→19:58)
[2024-04-12] MEDS: traMADol HCL (*CRX) 50 MG TABLET PO ×3 (06:33→16:47)
[2024-04-12 06:47] LABS: Basophils Absolute Auto 0.1 K/mm3 (0.0-0.1); Basophils Percent Auto 0.5 % (0.2-1.2); Eosinophils Absolute Auto 0.4 K/mm3 (0-0.3); Eosinophils Percent Auto 2.2 % (0-4.4); Hematocrit 35.5 % (37.0-47.0); Hemoglobin 11.1 g/dL (12.0-15.0); Immature Granulocyte Absolute 0.84 K/mm3 (0.00-0.031); Immature Granulocyte Percent A 4.8 % (0-0.5); Lymphocytes Absolute Auto 1.23 K/mm3 (0.9-3.2); Mean Corpuscular HGB Conc 31.3 g/dl (32-36); Mean Corpuscular Hemoglobin 32.5 pg (26-34); Mean Corpuscular Volume 103.8 fl (80-100); Mean Platelet Volume 11.9 fl (7.4-10.4); Monocytes Absolute Auto 1.5 K/mm3 (0.1-0.6); Monocytes Percent Auto 8.6 % (2.6-8.5); Neutrophils Absolute Auto 13.5 K/mm3 (1.3-6.7); Neutrophils Percent Auto 76.9 % (45.5-73.1); Platelet Count Result 264 k/mm3 (150-375); Red Blood Count 3.42 M/mm3 (4.2-5.4); Red Cell Distribution Width 13.2 % (11.5-14.5); White Blood Count 17.5 K/mm3 (4.5-10.0)
[2024-04-12 06:57] LABS: Alanine Aminotransferase 71 U/L (6-35); Albumin Level 3.2 g/dL (3.5-5.1); Alkaline Phosphatase 74 U/L (38-126); Anion Gap 6 mmol/L (4-12); Aspartate Amino Transferase 22 U/L (14-36); Bilirubin,Total 0.7 mg/dL (0.2-1.3); Blood Urea Nitrogen 40 mg/dL (7-17); Calcium 8.5 mg/dL (8.4-10.2); Carbon Dioxide 34 mmol/L (22-30); Chloride 98 mmol/L (98-107); Estimated CRCL calculation 50 ml/min; Estimated Glomerular Filt Rate 42; Glucose 130 mg/dL (65-110); Magnesium 1.9 mg/dL (1.6-2.3); Potassium 4.2 mmol/L (3.4-5.0); Sodium 138 mmol/L (137-145)
[2024-04-12] MEDS: LOSARTAN POTASSIUM 50 MG TABLET PO (09:23)
[2024-04-12] MEDS: amLODIPine BESYLATE 10 MG TABLET PO (09:25)
[2024-04-12] MEDS: METOPROLOL TARTRATE 50 MG TAB 100 MG PO ×2 (09:25→19:56)
[2024-04-12] MEDS: APIXABAN 5 MG TABLET PO ×2 (09:27→16:47)
[2024-04-12] MEDS: ATORVASTATIN 20 MG TABLET PO (09:27)
[2024-04-12] MEDS: LINEZOLID 600 MG TABLET PO ×2 (09:27→19:56)
[2024-04-12] MEDS: TOLNAFTATE 1% POWDER 45 GM BTL 1 APPLIC TOPICAL ×2 (09:27→19:57)
[2024-04-12] MEDS: PANTOPRAZOLE SODIUM IV 40 MG VIAL IV PUSH (09:28)
--- NOTE | 2024-04-12 10:45 | P.PNNP_ITS ---
Progress Note: A&P Assessment and Plan (1) NUNU (acute kidney injury): Code(s): N17.9 - Acute kidney failure, unspecified Status: Acute Assessment and Plan: * ongoing improvement noted * evaluation to date noted: * urine electrolytes prerenal * urine eosinophils negative * mild proteinuria * renal u/s and CT without obstruction - left kidney atrophy noted * CPK normal * suspect ATN with multifactorial etiology: * respiratory + cardiac arrest * previous hemodynamic instability/hypotension * pre-renal factors(?) * NSAID use prior to admission * contrast exposure (CTA of chest) * infection/sepsis (bacteremia) * sosa malfunction (i.e. clogged) * good urine output noted * follow trend of repeat labs and UOP (2) Acute on chronic respiratory failure with hypoxia and hypercapnia: Code(s): J96.21 - Acute and chronic respiratory failure with hypoxia; J96.22 - Acute and chronic respiratory failure with hypercapnia Status: Acute Assessment and Plan: * resolving * continue supportive therapy * on chronic home oxygen (3) Cardiac arrest due to respiratory disorder: Code(s): J98.9 - Respiratory disorder, unspecified; I46.8 - Cardiac arrest due to other underlying condition Status: Acute Assessment and Plan: * precipitated by respiratory distress/failure (from COPD + pulmonary embolism +/- pulmonary edema) * troponins mildly elevated but no EKG changes noted * Cardiology recommendations noted (4) Sepsis: Code(s): A41.9 - Sepsis, unspecified organism Status: Acute Assessment and Plan: * resolving * due to bacteremia (source not clear) * UA suggestive of UTI but culture negative so far * CT of chest without evidence of pneumonia * blood cultures with Staph epidermis * BP better with IVFs * on antibiotics (5) Pulmonary embolism: Qualifiers: Pulmonary embolism type: single subsegmental (without acute cor pulmonale) Qualified Code(s): I26.93 - Single subsegmental pulmonary embolism without acute cor pulmonale Code(s): I26.99 - Other pulmonary embolism without acute cor pulmonale Status: Acute Assessment and Plan: * as noted by CTA of chest * on Eliquis (6) Hypertension: Code(s): I10 - Essential (primary) hypertension Status: Chronic Assessment and Plan: * reasonable control * continue current medications * follow trend of hemodynamics Will continue to follow. Subjective Date/time seen: 04/12/24 10:45 Interval history: Follow-up for acute kidney injury/acute renal failure. Renal function/creatinine improving in the last 24 - 48 hours with holding diuretics and continues to make good urine output as well; breathing/respiratory status seems relatively stable as will; no acute issues/events overnight or earlier this morning; no apparent distress noted. Exam Narrative: General: large female in NAD Heart: normal S1 and S2; no rub Lungs: clear anteriorly; decreased at bases Abdomen: soft, nontender, nondistended, +BS; colostomy in place Extremities: trace edema present Skin: warm and dry Objective Data Vital Signs Vital Signs: Vital Signs Temp Pulse Resp BP Pulse Ox O2 Del Method O2 Flow Rate 04/12/24 08:00 99 Nasal Cannula 4 04/12/24 08:00 69 03/31
--- NOTE | 2024-04-12 10:45 | PM.PNNEP ---
Progress Note: A&P Assessment and Plan (1) NUNU (acute kidney injury): Code(s): N17.9 - Acute kidney failure, unspecified Status: Acute Assessment and Plan: ongoing improvement noted evaluation to date noted: urine electrolytes prerenal urine eosinophils negative mild proteinuria renal u/s and CT without obstruction - left kidney atrophy noted CPK normal suspect ATN with multifactorial etiology: respiratory + cardiac arrest previous hemodynamic instability/hypotension pre-renal factors(?) NSAID use prior to admission contrast exposure (CTA of chest) infection/sepsis (bacteremia) sosa malfunction (i.e. clogged) good urine output noted follow trend of repeat labs and UOP (2) Acute on chronic respiratory failure with hypoxia and hypercapnia: Code(s): J96.21 - Acute and chronic respiratory failure with hypoxia; J96.22 - Acute and chronic respiratory failure with hypercapnia Status: Acute Assessment and Plan: resolving continue supportive therapy on chronic home oxygen (3) Cardiac arrest due to respiratory disorder: Code(s): J98.9 - Respiratory disorder, unspecified; I46.8 - Cardiac arrest due to other underlying condition Status: Acute Assessment and Plan: precipitated by respiratory distress/failure (from COPD + pulmonary embolism +/- pulmonary edema) troponins mildly elevated but no EKG changes noted Cardiology recommendations noted (4) Sepsis: Code(s): A41.9 - Sepsis, unspecified organism Status: Acute Assessment and Plan: resolving due to bacteremia (source not clear) UA suggestive of UTI but culture negative so far CT of chest without evidence of pneumonia blood cultures with Staph epidermis BP better with IVFs on antibiotics (5) Pulmonary embolism: Qualifiers: Pulmonary embolism type: single subsegmental (without acute cor pulmonale) Qualified Code(s): I26.93 - Single subsegmental pulmonary embolism without acute cor pulmonale Code(s): I26.99 - Other pulmonary embolism without acute cor pulmonale Status: Acute Assessment and Plan: as noted by CTA of chest on Eliquis (6) Hypertension: Code(s): I10 - Essential (primary) hypertension Status: Chronic Assessment and Plan: reasonable control continue current medications follow trend of hemodynamics Will continue to follow. Subjective Date/time seen: 04/12/24 10:45 Interval history: Follow-up for acute kidney injury/acute renal failure. Renal function/creatinine improving in the last 24 - 48 hours with holding diuretics and continues to make good urine output as well; breathing/respiratory status seems relatively stable as will; no acute issues/events overnight or earlier this morning; no apparent distress noted. Exam Narrative: General: large female in NAD Heart: normal S1 and S2; no rub Lungs: clear anteriorly; decreased at bases Abdomen: soft, nontender, nondistended, +BS; colostomy in place Extremities: trace edema present Skin: warm and dry Objective Data Vital Signs Vital Signs: Vital Signs Temp Pulse Resp BP Pulse Ox O2 Del Method O2 Flow Rate 04/12/24 08:00 99 Nasal Cannula 4 04/12/24 08:00 69 04/12/24 08:00 98 F 85 19 130/88 99 04/12/24 09:25 92 04/12/24 08:09 90 20 04/12/24 07:57 86 20 04/12/24 07:57 98 Nasal Cannula 4 04/12/24 04:00 82 04/12/24 01:35 88 20 04/12/24 02:25 97.8 F 87 20 127/94 H 100 04/11/24 21:15 78 97 Autopap 04/12/24 01:18 84 95 Autopap 04/12/24 01:18 84 20 04/11/24 22:00 78 04/11/24 20:00 90 04/11/24 20:00 88 20 97 Nasal Cannula 4 04/11/24 20:16 88 04/11/24 20:10 81 20 04/11/24 20:09 97 F L 102 H 18 136/84 97 04/11/24 19:54 78 20 04/11/24 19:54 97
--- NOTE | 2024-04-12 13:13 | PM.IMPN ---
Progress Note: A&P Assessment and Plan (1) Acute on chronic respiratory failure with hypoxia and hypercapnia: Code(s): J96.21 - Acute and chronic respiratory failure with hypoxia; J96.22 - Acute and chronic respiratory failure with hypercapnia Status: Acute Assessment and Plan: Patient has chronic respiratory failure secondary to congestive heart failure and COPD. Patient is on home oxygen and CPAP. Patient's events started with shortness of breath. Post intubation ABG showed acute on chronic hypercarbic respiratory failure along with hypoxia -04/03: Intubated in the ER -04/07: Extubated successfully Continue Eliquis Encourage incentive spirometry -continue bronchodilator -continue vancomycin and cefepime Chest CTA on admission IMPRESSION: Occasional small left lower lobe subsegmental pulmonary emboli Congestive changes including moderate right and small left pleural effusions Chest x-ray 04/11/2024 with persistent small bilateral pleural effusion with bibasilar atelectasis versus pneumonia. PCR for flu COVID and RSV were negative (2) Cardiac arrest due to respiratory disorder: Code(s): J98.9 - Respiratory disorder, unspecified; I46.8 - Cardiac arrest due to other underlying condition Status: Acute Assessment and Plan: -Patient had a cardiac arrest that was precipitated by respiratory distress and respiratory failure. She appeared to have COPD exacerbation and was also found to be having small PE on her CTA. Pulmonary edema EKG did not show any ST elevation but she had mildly elevated troponin Patient does have baseline chronic respiratory failure Appreciate cardiology evaluation recommendation -continue Eliquis 04/04: Echocardiogram Summary 1. Technically challenging exam, definity contrast used to improve visualization. 2. Vigorous left and right ventricular systolic function. EF 65-70%, grade 1 diastolic dysfunction 3. Biatrial dilation. 4. Mild mitral annular calcification. 5. Sclerotic aortic valve which is not significantly stenotic. (3) NUNU (acute kidney injury): Code(s): N17.9 - Acute kidney failure, unspecified Status: Acute Assessment and Plan: Patient with acute kidney injury likely related to cardiac arrest, hypotension, prerenal factors. -urine output gradually improving, creatinine improving after IV fluids 1500 mL over 20 hours -blood pressures have been stable -urine lytes did not show prerenal picture, negative urine eosinophils, CK levels were within normal limits -04/05: Renal ultrasound - 1. Normal right kidney. No hydronephrosis. 2. Left kidney not visualized. Note that the prior CT demonstrates moderate atrophy of left kidney without hydronephrosis -new Shell catheter was inserted on 04/06/2024 with improved urine output, previous Shell catheter was clogged when removed -adequate urine output with improvement in creatinine Continue to monitor urine output, renal function electrolytes -continue home Lasix, which is on hold due to slight bump in creatinine but now improved Will need resumption of Lasix eventually. Await Nephrology recommendations Appreciate nephrology following the patient (4) Transaminitis: Code(s): R74.01 - Elevation of levels of liver transaminase levels Status: Acute Assessment and Plan: Elevated AST and ALT Likely secondary to shock liver along with cardiac arrest LFTs trending down, continue to monitor -CK levels within normal limits (5) Elevated troponin: Code(s): R79.89 - Other specified abnormal findings of blood chemistry Status: Acute Assessment and Plan: Secondary to cardiac arrest and PE On heparin infusion -Hold statin due to elevated liver enzymes -continue aspirin, start atorvastatin and metoprolol that she takes at -appreciate cardiology following -echocardiogram as above -EKG reviewed and does not show any ST elevation in shows sinus rhythm (6) Pulmonary embolis
--- NOTE | 2024-04-12 14:35 | PCRCNOTE ---
PLEASE NOTE, PT IS ON ASTRAL/TRILOGY HOME NON INVASIVE VENTILATOR, NOT CPAP MACHINE. DME FOR O2 AND HOME NIV IS [facility]. SET UP AND ORDER WAS NOT COMPLETED HERE, THIS WAS SET UP PRIOR TO HER ADMISSION TO [facility].
[2024-04-12] MEDS: traZODone HCL 50 MG TABLET PO (19:57)
[2024-04-12] MEDS: MELATONIN 5 MG TABLET PO (19:57)
[2024-04-13] VITALS (20 sets, daily range): BP systolic 125–138; BP diastolic 75–94; PULSE 72–106; RESP 16–20; TEMP 36.2–36.8; O2SAT 94–100
[2024-04-13] MEDS: traMADol HCL (*CRX) 50 MG TABLET PO ×3 (05:14→21:05)
[2024-04-13 06:06] LABS: Basophils Absolute Auto 0.1 K/mm3 (0.0-0.1); Basophils Percent Auto 0.4 % (0.2-1.2); Eosinophils Absolute Auto 0.4 K/mm3 (0-0.3); Eosinophils Percent Auto 2.2 % (0-4.4); Hematocrit 35.6 % (37.0-47.0); Hemoglobin 11.4 g/dL (12.0-15.0); Immature Granulocyte Absolute 0.65 K/mm3 (0.00-0.031); Immature Granulocyte Percent A 3.5 % (0-0.5); Lymphocytes Absolute Auto 1.39 K/mm3 (0.9-3.2); Lymphocytes Percent Auto 7.5 % (18.3-44.2); Mean Corpuscular Volume 103.2 fl (80-100); Mean Platelet Volume 12.7 fl (7.4-10.4); Monocytes Absolute Auto 1.2 K/mm3 (0.1-0.6); Monocytes Percent Auto 6.5 % (2.6-8.5); Neutrophils Absolute Auto 14.8 K/mm3 (1.3-6.7); Neutrophils Percent Auto 79.9 % (45.5-73.1); Platelet Count Result 302 k/mm3 (150-375); Red Blood Count 3.45 M/mm3 (4.2-5.4); Red Cell Distribution Width 13.2 % (11.5-14.5); White Blood Count 18.5 K/mm3 (4.5-10.0)
[2024-04-13 06:15] LABS: Alanine Aminotransferase 58 U/L (6-35); Albumin Level 3.5 g/dL (3.5-5.1); Alkaline Phosphatase 82 U/L (38-126); Anion Gap 5 mmol/L (4-12); Aspartate Amino Transferase 21 U/L (14-36); Bilirubin,Total 0.5 mg/dL (0.2-1.3); Blood Urea Nitrogen 35 mg/dL (7-17); Calcium 8.9 mg/dL (8.4-10.2); Carbon Dioxide 37 mmol/L (22-30); Chloride 96 mmol/L (98-107); Estimated CRCL calculation 46 ml/min; Estimated Glomerular Filt Rate 38; Glucose 147 mg/dL (65-110); Magnesium 1.9 mg/dL (1.6-2.3); Potassium 4.3 mmol/L (3.4-5.0); Sodium 138 mmol/L (137-145)
[2024-04-13] MEDS: ALBUTEROL SULFATE NEB 2.5 MG/3 ML INH 5 MG INHALATION ×3 (07:48→21:12)
[2024-04-13] MEDS: IPRATROPIUM BR 0.02% INH SOLN 0.5 MG/2.5 ML VIAL INHALATION ×3 (07:48→21:12)
[2024-04-13] MEDS: amLODIPine BESYLATE 10 MG TABLET PO (09:16)
[2024-04-13] MEDS: LOSARTAN POTASSIUM 50 MG TABLET PO (09:16)
[2024-04-13] MEDS: PANTOPRAZOLE SODIUM IV 40 MG VIAL IV PUSH (09:16)
[2024-04-13] MEDS: METOPROLOL TARTRATE 50 MG TAB 100 MG PO ×2 (09:16→21:00)
[2024-04-13] MEDS: LINEZOLID 600 MG TABLET PO ×2 (09:16→21:00)
[2024-04-13] MEDS: ATORVASTATIN 20 MG TABLET PO (09:16)
[2024-04-13] MEDS: APIXABAN 5 MG TABLET PO ×2 (09:16→17:32)
[2024-04-13] MEDS: SALINE LOCK FLUSH 10 ML IV PUSH ×2 (09:17→21:01)
[2024-04-13] MEDS: TOLNAFTATE 1% POWDER 45 GM BTL 1 APPLIC TOPICAL ×2 (09:17→21:00)
[2024-04-13] MEDS: ACETAMINOPHEN ELIXIR 325 MG/10.15 ML UDC 650 MG PO (09:20)
--- NOTE | 2024-04-13 13:21 | PM.PNNEP ---
Progress Note: A&P Assessment and Plan (1) NUNU (acute kidney injury): Code(s): N17.9 - Acute kidney failure, unspecified Status: Acute Assessment and Plan: improvement noted evaluation to date noted: urine electrolytes prerenal urine eosinophils negative mild proteinuria renal u/s and CT without obstruction - left kidney atrophy noted CPK normal suspect ATN with multifactorial etiology: respiratory + cardiac arrest previous hemodynamic instability/hypotension pre-renal factors(?) NSAID use prior to admission contrast exposure (CTA of chest) infection/sepsis (bacteremia) sosa malfunction (i.e. clogged) good urine output noted probably okay to resume diuretics follow trend of repeat labs and UOP (2) Acute on chronic respiratory failure with hypoxia and hypercapnia: Code(s): J96.21 - Acute and chronic respiratory failure with hypoxia; J96.22 - Acute and chronic respiratory failure with hypercapnia Status: Acute Assessment and Plan: resolving continue supportive therapy on chronic home oxygen (3) Cardiac arrest due to respiratory disorder: Code(s): J98.9 - Respiratory disorder, unspecified; I46.8 - Cardiac arrest due to other underlying condition Status: Acute Assessment and Plan: precipitated by respiratory distress/failure (from COPD + pulmonary embolism +/- pulmonary edema) troponins mildly elevated but no EKG changes noted Cardiology recommendations noted (4) Sepsis: Code(s): A41.9 - Sepsis, unspecified organism Status: Acute Assessment and Plan: resolving due to bacteremia (source not clear) UA suggestive of UTI but culture negative so far CT of chest without evidence of pneumonia blood cultures with Staph epidermis BP better with IVFs on antibiotics (5) Pulmonary embolism: Qualifiers: Pulmonary embolism type: single subsegmental (without acute cor pulmonale) Qualified Code(s): I26.93 - Single subsegmental pulmonary embolism without acute cor pulmonale Code(s): I26.99 - Other pulmonary embolism without acute cor pulmonale Status: Acute Assessment and Plan: as noted by CTA of chest on Eliquis (6) Hypertension: Code(s): I10 - Essential (primary) hypertension Status: Chronic Assessment and Plan: reasonable control continue current medications follow trend of hemodynamics Will continue to follow. Subjective Date/time seen: 04/13/24 13:21 Interval history: Follow-up for acute kidney injury/acute renal failure. Renal function/creatinine fluctuating as noted by trend of labs in the last 24 - 48 hours; no apparent distress noted; breathing/respiratory status seems relatively stable at this time; no acute issues/events overnight or earlier this morning. Exam Narrative: General: large female in NAD Heart: normal S1 and S2; no rub Lungs: clear anteriorly; decreased at bases Abdomen: soft, nontender, nondistended, +BS; colostomy in place Extremities: trace edema present Skin: warm and intact Objective Data Vital Signs Vital Signs: Vital Signs Temp Pulse Resp BP Pulse Ox O2 Del Method O2 Flow Rate 04/13/24 13:21 81 16 94 Nasal Cannula 4 04/13/24 12:00 93 04/13/24 08:00 106 H 04/13/24 09:15 100 Nasal Cannula 4 04/13/24 08:00 98.2 F 82 19 128/82 100 04/13/24 09:16 85 04/13/24 07:52 80 20 04/13/24 07:49 81 20 04/13/24 07:49 81 20 100 Nasal Cannula 4 04/13/24 05:31 98.1 F 88 18 125/75 100 04/13/24 04:00 85 04/13/24 00:00 76 04/12/24 23:00 77 95 04/12/24 20:00 77 04/12/24 20:27 98.7 F 77 20 132/69 100 04/12/24 19:48 82 20 100 Nasal Cannula 4 04/12/24 19:48 99 Nasal Cannula 4 04/12/24 19:47 82 20 Intake/Output Intake/Output: Intake & Output 04/10/24 0
--- NOTE | 2024-04-13 13:21 | P.PNNP_ITS ---
Progress Note: A&P Assessment and Plan (1) NUNU (acute kidney injury): Code(s): N17.9 - Acute kidney failure, unspecified Status: Acute Assessment and Plan: * improvement noted * evaluation to date noted: * urine electrolytes prerenal * urine eosinophils negative * mild proteinuria * renal u/s and CT without obstruction - left kidney atrophy noted * CPK normal * suspect ATN with multifactorial etiology: * respiratory + cardiac arrest * previous hemodynamic instability/hypotension * pre-renal factors(?) * NSAID use prior to admission * contrast exposure (CTA of chest) * infection/sepsis (bacteremia) * sosa malfunction (i.e. clogged) * good urine output noted * probably okay to resume diuretics * follow trend of repeat labs and UOP (2) Acute on chronic respiratory failure with hypoxia and hypercapnia: Code(s): J96.21 - Acute and chronic respiratory failure with hypoxia; J96.22 - Acute and chronic respiratory failure with hypercapnia Status: Acute Assessment and Plan: * resolving * continue supportive therapy * on chronic home oxygen (3) Cardiac arrest due to respiratory disorder: Code(s): J98.9 - Respiratory disorder, unspecified; I46.8 - Cardiac arrest due to other underlying condition Status: Acute Assessment and Plan: * precipitated by respiratory distress/failure (from COPD + pulmonary embolism +/- pulmonary edema) * troponins mildly elevated but no EKG changes noted * Cardiology recommendations noted (4) Sepsis: Code(s): A41.9 - Sepsis, unspecified organism Status: Acute Assessment and Plan: * resolving * due to bacteremia (source not clear) * UA suggestive of UTI but culture negative so far * CT of chest without evidence of pneumonia * blood cultures with Staph epidermis * BP better with IVFs * on antibiotics (5) Pulmonary embolism: Qualifiers: Pulmonary embolism type: single subsegmental (without acute cor pulmonale) Qualified Code(s): I26.93 - Single subsegmental pulmonary embolism without acute cor pulmonale Code(s): I26.99 - Other pulmonary embolism without acute cor pulmonale Status: Acute Assessment and Plan: * as noted by CTA of chest * on Eliquis (6) Hypertension: Code(s): I10 - Essential (primary) hypertension Status: Chronic Assessment and Plan: * reasonable control * continue current medications * follow trend of hemodynamics Will continue to follow. Subjective Date/time seen: 04/13/24 13:21 Interval history: Follow-up for acute kidney injury/acute renal failure. Renal function/creatinine fluctuating as noted by trend of labs in the last 24 - 48 hours; no apparent distress noted; breathing/respiratory status seems relatively stable at this time; no acute issues/events overnight or earlier this morning. Exam Narrative: General: large female in NAD Heart: normal S1 and S2; no rub Lungs: clear anteriorly; decreased at bases Abdomen: soft, nontender, nondistended, +BS; colostomy in place Extremities: trace edema present Skin: warm and intact Objective Data Vital Signs Vital Signs: Vital Signs Temp Pulse Resp BP Pulse Ox O2 Del Method O2 Flow Rate 04/13/24 13:21 81 16 94 Nasal Cannula 4 04/13/24 12:00 93
--- NOTE | 2024-04-13 16:37 | P.PNIM_ITS ---
Progress Note: A&P Assessment and Plan (1) Acute on chronic respiratory failure with hypoxia and hypercapnia: Code(s): J96.21 - Acute and chronic respiratory failure with hypoxia; J96.22 - Acute and chronic respiratory failure with hypercapnia Status: Acute Assessment and Plan: Patient has chronic respiratory failure secondary to congestive heart failure and COPD. Patient is on home oxygen and CPAP. Patient's events started with shortness of breath. Post intubation ABG showed acute on chronic hypercarbic respiratory failure along with hypoxia -04/03: Intubated in the ER -04/07: Extubated successfully Continue Eliquis Encourage incentive spirometry -continue bronchodilator -continue vancomycin and cefepime Chest CTA on admission IMPRESSION: Occasional small left lower lobe subsegmental pulmonary emboli Congestive changes including moderate right and small left pleural effusions Chest x-ray 04/11/2024 with persistent small bilateral pleural effusion with bibasilar atelectasis versus pneumonia. PCR for flu COVID and RSV were negative (2) Cardiac arrest due to respiratory disorder: Code(s): J98.9 - Respiratory disorder, unspecified; I46.8 - Cardiac arrest due to other underlying condition Status: Acute Assessment and Plan: -Patient had a cardiac arrest that was precipitated by respiratory distress and respiratory failure. She appeared to have COPD exacerbation and was also found to be having small PE on her CTA. Pulmonary edema EKG did not show any ST elevation but she had mildly elevated troponin Patient does have baseline chronic respiratory failure Appreciate cardiology evaluation recommendation -continue Eliquis 04/04: Echocardiogram Summary 1. Technically challenging exam, definity contrast used to improve visualization. 2. Vigorous left and right ventricular systolic function. EF 65-70%, grade 1 diastolic dysfunction 3. Biatrial dilation. 4. Mild mitral annular calcification. 5. Sclerotic aortic valve which is not significantly stenotic. (3) NUNU (acute kidney injury): Code(s): N17.9 - Acute kidney failure, unspecified Status: Acute Assessment and Plan: Patient with acute kidney injury likely related to cardiac arrest, hypotension, prerenal factors. -urine output gradually improving, creatinine improving after IV fluids 1500 mL over 20 hours -blood pressures have been stable -urine lytes did not show prerenal picture, negative urine eosinophils, CK levels were within normal limits -04/05: Renal ultrasound - 1. Normal right kidney. No hydronephrosis. 2. Left kidney not visualized. Note that the prior CT demonstrates moderate atrophy of left kidney without hydronephrosis -new Shell catheter was inserted on 04/06/2024 with improved urine output, previous Shell catheter was clogged when removed -adequate urine output with improvement in creatinine Continue to monitor urine output, renal function electrolytes -continue home Lasix, which is on hold due to slight bump in creatinine but now improved Will need resumption of Lasix eventually. Await Nephrology recommendations Appreciate nephrology following the patient (4) Transaminitis: Code(s): R74.01 - Elevation of levels of liver transaminase levels Status: Acute Assessment and Plan: Elevated AST and ALT Likely secondary to shock liver along with cardiac arrest LFTs trending down, continue to monitor -CK levels within normal limits (5) Elevated troponin: Code(s): R79.89 - Other specified abnormal findings of blood chemistry Status: Acute
[2024-04-13] MEDS: ACETAMINOPHEN 325 MG TABLET 650 MG PO (17:32)
[2024-04-13] MEDS: traZODone HCL 50 MG TABLET PO (21:00)
--- NOTE | 2024-04-13 21:08 | PC.NURSE ---
Pt states having no pain at this time but would like to take a tramadol to sleep. Pt educated on pain medication purpose and parameters for admin. Pt states pain is now 5-6 and needs a pain pill. Pt given tramadol for pain level stated 5/10.
[2024-04-13] MEDS: MELATONIN 5 MG TABLET PO (21:14)
[2024-04-14] VITALS (21 sets, daily range): BP systolic 139–151; BP diastolic 82–103; PULSE 70–95; RESP 16–22; TEMP 36.1–36.5; O2SAT 92–100
[2024-04-14] MEDS: ALBUTEROL SULFATE NEB 2.5 MG/3 ML INH 5 MG INHALATION ×3 (02:40→21:04)
[2024-04-14] MEDS: IPRATROPIUM BR 0.02% INH SOLN 0.5 MG/2.5 ML VIAL INHALATION ×4 (03:31→21:04)
--- NOTE | 2024-04-14 05:25 | ECG_ITS ---
Test Date: 2024-04-14 05:42:41 Measurements Intervals [place] Rate: 93 P: 0 MN: 0 QRS: 24 QRSD: 105 T: 35 QT: 369 QTc: 459 Interpretive Statements ATRIAL FIBRILLATION LOW QRS VOLTAGE IN PRECORDIAL LEADS [QRS DEFLECTION < 1.0 mV IN CHEST LEADS] Compared to ECG 04/03/2024 20:04:05 Sinus rhythm no longer present Electronically Signed On 04-14-2024 09:57:37 CDT by Marysol Santo M.D.
[2024-04-14] MEDS: ACETAMINOPHEN 325 MG TABLET 650 MG PO (05:26)
[2024-04-14 05:37] LABS: Basophils Absolute Auto 0.1 K/mm3 (0.0-0.1); Basophils Percent Auto 0.3 % (0.2-1.2); Eosinophils Absolute Auto 0.4 K/mm3 (0-0.3); Hematocrit 35.3 % (37.0-47.0); Hemoglobin 10.8 g/dL (12.0-15.0); Immature Granulocyte Absolute 0.56 K/mm3 (0.00-0.031); Immature Granulocyte Percent A 2.8 % (0-0.5); Immature Platelet Fraction Pct 8.8 % (0.9-11.2); Lymphocytes Absolute Auto 1.64 K/mm3 (0.9-3.2); Lymphocytes Percent Auto 8.1 % (18.3-44.2); Mean Corpuscular HGB Conc 30.6 g/dl (32-36); Mean Corpuscular Hemoglobin 31.7 pg (26-34); Mean Corpuscular Volume 103.5 fl (80-100); Mean Platelet Volume 12.9 fl (7.4-10.4); Monocytes Absolute Auto 1.2 K/mm3 (0.1-0.6); Monocytes Percent Auto 5.9 % (2.6-8.5); Neutrophils Absolute Auto 16.3 K/mm3 (1.3-6.7); Neutrophils Percent Auto 80.9 % (45.5-73.1); Platelet Count Result 314 k/mm3 (150-375); Red Blood Count 3.41 M/mm3 (4.2-5.4); White Blood Count 20.2 K/mm3 (4.5-10.0)
--- NOTE | 2024-04-14 05:58 | PC.NURSE ---
Pt c/o chest pain 03/09 described as pressure w/ difficulty breathing. Dr Schwarz notified, order received for EKG, troponin I, chest xray, and additional breathing treatment
[2024-04-14 06:00] LABS: Alanine Aminotransferase 50 U/L (6-35); Albumin Level 3.4 g/dL (3.5-5.1); Alkaline Phosphatase 80 U/L (38-126); Aspartate Amino Transferase 21 U/L (14-36); Bilirubin,Total 0.4 mg/dL (0.2-1.3); Blood Urea Nitrogen 34 mg/dL (7-17); Calcium 9.1 mg/dL (8.4-10.2); Carbon Dioxide > 40 mmol/L (22-30); Chloride 96 mmol/L (98-107); Estimated CRCL calculation 43 ml/min; Estimated Glomerular Filt Rate 35; Glucose 125 mg/dL (65-110); Magnesium 1.9 mg/dL (1.6-2.3); Potassium 4.4 mmol/L (3.4-5.0); Sodium 140 mmol/L (137-145)
[2024-04-14 06:07] LABS: Procalcitonin 0.1 ng/mL
[2024-04-14 06:25] LABS: Troponin I 0.036 ng/mL (0.000-0.034)
[2024-04-14] MEDS: SALINE LOCK FLUSH 10 ML IV PUSH ×2 (06:41→21:09)
[2024-04-14] MEDS: METOPROLOL TARTRATE 50 MG TAB 100 MG PO ×2 (09:01→20:34)
[2024-04-14] MEDS: TOLNAFTATE 1% POWDER 45 GM BTL 1 APPLIC TOPICAL ×2 (09:02→21:09)
[2024-04-14] MEDS: amLODIPine BESYLATE 10 MG TABLET PO (09:02)
[2024-04-14] MEDS: APIXABAN 5 MG TABLET PO ×2 (09:02→17:08)
[2024-04-14] MEDS: LINEZOLID 600 MG TABLET PO ×2 (09:02→20:35)
[2024-04-14] MEDS: PANTOPRAZOLE SODIUM IV 40 MG VIAL IV PUSH (09:02)
[2024-04-14] MEDS: LOSARTAN POTASSIUM 50 MG TABLET PO (09:02)
[2024-04-14] MEDS: ATORVASTATIN 20 MG TABLET PO (09:02)
[2024-04-14] MEDS: traMADol HCL (*CRX) 50 MG TABLET PO ×2 (09:09→20:47)
--- NOTE | 2024-04-14 10:54 | PCPTNOTE ---
Attempted to see patient for PT, however patient was working with OT.
--- NOTE | 2024-04-14 13:03 | PCPTNOTE ---
Attempted to see patient for PT, however patient declined due to just getting back to bed with nursing.
--- NOTE | 2024-04-14 13:06 | PM.IMPN ---
Progress Note: A&P Assessment and Plan (1) Leukocytosis: Code(s): D72.829 - Elevated white blood cell count, unspecified Status: Acute Plan The patient is respiratory failure continues to be resolved. She has no cough. A repeat portable chest x-ray today on 04/14/24 demonstrates stable small pleural effusions and stable opacities at the lung bases. She is afebrile however her white count is back up to 20. Neutrophilia. Procalcitonin is normal however. She has been on Zyvox for Staph epidermidis bacteremia. She has no symptoms to indicate urinary tract infection. Will repeat blood cultures, three-view left foot x-ray, uric acid. Reports a history of gout usually has symptoms at the right great toe. She does not take anything at home for this. An arthrocentesis would yield benefit for diagnostic purposes. Reviewed the medication administration records and she has not received corticosteroids. Have switched her Protonix to p.o.. Full code. Subjective Date/time seen: 04/14/24 13:06 Interval history: Leukocytosis increasing. Ibrance review of systems obtained. She denies headache, blurry vision, fevers/chills, shortness of breath, cough, chest pain, abdominal pain, nausea/vomiting/diarrhea, increased urinary frequency, dysuria. She complains of mild left knee pain and has a history of arthritis. She reports a history of gout and usually her right great toe is inflamed but it is not at the moment. She reports her left great toe has more pain in the past 24 hours along with redness. She does not take anything at home for gout. Review of Systems Review of Systems: All systems reviewed & are unremarkable except as noted in HPI and below (Subjective) Exam Const: General: comfortable and no acute distress Other: Obese Eyes: Pupils: Equal, round and reactive pupils present Neck: Neck: supple Resp: Effort & Inspection: normal respiratory effort Cardio: Rate: regular rate Rhythm: regular rhythm GI: GI Palp: Yes Soft to palpation Other: Colostomy place, stoma pink. Formed stool. Extrem: General: no edema Other: Left great toe erythema and tender to palpation. Neurovascular exam intact. Objective Data Vital Signs Vital Signs: Vital Signs - 24 hr 04/13/24 13:21 04/13/24 13:21 04/13/24 13:21 Temperature Pulse Rate 81 81 81 Respiratory Rate 16 16 Blood Pressure Pulse Oximetry 94 94 Oxygen Delivery Nasal Cannula Oxygen Flow Rate 4 Fraction of Inspired Oxygen 36 04/13/24 13:30 04/13/24 16:00 04/13/24 16:00 Temperature 97.7 F Pulse Rate 83 73 81 Respiratory Rate 16 20 Blood Pressure 133/93 H Pulse Oximetry 99 Oxygen Delivery Oxygen Flow Rate Fraction of Inspired Oxygen 04/13/24 19:37 04/13/24 20:28 04/13/24 21:00 Temperature 97.2 F L 97.6 F Pulse Rate 72 90 83 Respiratory Rate 18 18 Blood Pressure 136/80 138/94 H Pulse Oximetry 94 100 Oxygen Delivery Oxygen Flow Rate Fraction of Inspired Oxygen 04/13/24 21:13 04/13/24 21:17 04/13/24 21:26 Temperature Pulse Rate 87 87 85 Respiratory Rate 18 16 Blood Pressure Pulse Oximetry 97 Oxygen Delivery Nasal Cannula Oxygen Flow Rate 4 Fraction of Inspired Oxygen 36 04/13/24 21:30 04/14/24 02:40 04/14/24 02:40 Temperature Pulse Rate 86 80 80 Respiratory Rate 18 Blood Pressure Pulse Oximetry 95 94 Oxygen Delivery Oxygen Flow Rate Fraction of Inspired Oxygen 04/14/24 02:47 04/13/24 20:00 04/14/24 00:00 Temperature Pulse Rate 82 96 74 Respiratory Rate 19 Blood Pressure Pulse Oximetry Oxygen Delivery Oxygen Flow Rate Fraction of Inspired Oxygen 04/14/24 04:00 04/14/24 05:35 04/14/24 08:50 Temperature Pulse Rate 81 84 Respiratory Rate 18 Blood Pressure Pulse Oximetry 95 Oxygen Delivery Nasal Cannula Oxygen Flow Rate 4 Fraction of Inspired Oxygen 36 04/14/24 09:01 03/31
--- NOTE | 2024-04-14 13:17 | P.PNNP_ITS ---
Progress Note: A&P Assessment and Plan (1) NUNU (acute kidney injury): Code(s): N17.9 - Acute kidney failure, unspecified Status: Acute Assessment and Plan: * fluctuating recently * evaluation to date noted: * urine electrolytes prerenal * urine eosinophils negative * mild proteinuria * renal u/s and CT without obstruction - left kidney atrophy noted * CPK normal * suspect ATN with multifactorial etiology: * respiratory + cardiac arrest * previous hemodynamic instability/hypotension * pre-renal factors(?) * NSAID use prior to admission * contrast exposure (CTA of chest) * infection/sepsis (bacteremia) * sosa malfunction (i.e. clogged) * good urine output noted * follow trend of repeat labs and UOP (2) Acute on chronic respiratory failure with hypoxia and hypercapnia: Code(s): J96.21 - Acute and chronic respiratory failure with hypoxia; J96.22 - Acute and chronic respiratory failure with hypercapnia Status: Acute Assessment and Plan: * resolving * continue supportive therapy * on chronic home oxygen (3) Cardiac arrest due to respiratory disorder: Code(s): J98.9 - Respiratory disorder, unspecified; I46.8 - Cardiac arrest due to other underlying condition Status: Acute Assessment and Plan: * precipitated by respiratory distress/failure (from COPD + pulmonary embolism +/- pulmonary edema) * troponins mildly elevated but no EKG changes noted * Cardiology recommendations noted (4) Sepsis: Code(s): A41.9 - Sepsis, unspecified organism Status: Acute Assessment and Plan: * resolving * due to bacteremia (source not clear) * UA suggestive of UTI but culture negative so far * CT of chest without evidence of pneumonia * blood cultures with Staph epidermis * on antibiotics (5) Pulmonary embolism: Qualifiers: Pulmonary embolism type: single subsegmental (without acute cor pulmonale) Qualified Code(s): I26.93 - Single subsegmental pulmonary embolism without acute cor pulmonale Code(s): I26.99 - Other pulmonary embolism without acute cor pulmonale Status: Acute Assessment and Plan: * as noted by CTA of chest * on Eliquis (6) Hypertension: Code(s): I10 - Essential (primary) hypertension Status: Chronic Assessment and Plan: * reasonable control * continue current medications * follow trend of hemodynamics Will continue to follow. Subjective Date/time seen: 04/14/24 13:17 Interval history: Follow-up for acute kidney injury/acute renal failure. Renal function/creatinine still fluctuating as noted by trend of labs in the last few days; relatively stability in breathing/respiratory status noted; no apparent distress voiced; concerning that WBC continues to rise; no other acute complaints to report. Exam Narrative: General: large female in NAD Heart: normal S1 and S2; no rub Lungs: clear anteriorly; decreased at bases Abdomen: soft, nontender, nondistended, +BS; colostomy in place Extremities: trace edema present Skin: no rash Objective Data Vital Signs Vital Signs: Vital Signs Temp Pulse Resp BP Pulse Ox O2 Del Method O2 Flow Rate 04/14/24 12:00 70 04/14/24 08:00 87 04/14/24 08:55 96 Nasal Cannula 4 04/14/24 09:01 86
--- NOTE | 2024-04-14 13:17 | PM.PNNEP ---
Progress Note: A&P Assessment and Plan (1) NUNU (acute kidney injury): Code(s): N17.9 - Acute kidney failure, unspecified Status: Acute Assessment and Plan: fluctuating recently evaluation to date noted: urine electrolytes prerenal urine eosinophils negative mild proteinuria renal u/s and CT without obstruction - left kidney atrophy noted CPK normal suspect ATN with multifactorial etiology: respiratory + cardiac arrest previous hemodynamic instability/hypotension pre-renal factors(?) NSAID use prior to admission contrast exposure (CTA of chest) infection/sepsis (bacteremia) sosa malfunction (i.e. clogged) good urine output noted follow trend of repeat labs and UOP (2) Acute on chronic respiratory failure with hypoxia and hypercapnia: Code(s): J96.21 - Acute and chronic respiratory failure with hypoxia; J96.22 - Acute and chronic respiratory failure with hypercapnia Status: Acute Assessment and Plan: resolving continue supportive therapy on chronic home oxygen (3) Cardiac arrest due to respiratory disorder: Code(s): J98.9 - Respiratory disorder, unspecified; I46.8 - Cardiac arrest due to other underlying condition Status: Acute Assessment and Plan: precipitated by respiratory distress/failure (from COPD + pulmonary embolism +/- pulmonary edema) troponins mildly elevated but no EKG changes noted Cardiology recommendations noted (4) Sepsis: Code(s): A41.9 - Sepsis, unspecified organism Status: Acute Assessment and Plan: resolving due to bacteremia (source not clear) UA suggestive of UTI but culture negative so far CT of chest without evidence of pneumonia blood cultures with Staph epidermis on antibiotics (5) Pulmonary embolism: Qualifiers: Pulmonary embolism type: single subsegmental (without acute cor pulmonale) Qualified Code(s): I26.93 - Single subsegmental pulmonary embolism without acute cor pulmonale Code(s): I26.99 - Other pulmonary embolism without acute cor pulmonale Status: Acute Assessment and Plan: as noted by CTA of chest on Eliquis (6) Hypertension: Code(s): I10 - Essential (primary) hypertension Status: Chronic Assessment and Plan: reasonable control continue current medications follow trend of hemodynamics Will continue to follow. Subjective Date/time seen: 04/14/24 13:17 Interval history: Follow-up for acute kidney injury/acute renal failure. Renal function/creatinine still fluctuating as noted by trend of labs in the last few days; relatively stability in breathing/respiratory status noted; no apparent distress voiced; concerning that WBC continues to rise; no other acute complaints to report. Exam Narrative: General: large female in NAD Heart: normal S1 and S2; no rub Lungs: clear anteriorly; decreased at bases Abdomen: soft, nontender, nondistended, +BS; colostomy in place Extremities: trace edema present Skin: no rash Objective Data Vital Signs Vital Signs: Vital Signs Temp Pulse Resp BP Pulse Ox O2 Del Method O2 Flow Rate 04/14/24 12:00 70 04/14/24 08:00 87 04/14/24 08:55 96 Nasal Cannula 4 04/14/24 09:01 86 04/14/24 08:50 95 Nasal Cannula 4 04/14/24 05:35 84 18 04/14/24 04:00 81 04/14/24 00:00 74 04/13/24 20:00 96 04/14/24 02:47 82 19 04/14/24 02:40 80 94 04/14/24 02:40 80 18 04/13/24 21:30 86 95 04/13/24 21:26 85 16 04/13/24 21:17 87 97 Nasal Cannula 4 04/13/24 21:13 87 18 04/13/24 21:00 83 04/13/24 20:28 97.6 F 90 18 138/94 H 100 04/13/24 19:37 97.2 F L 72 18 136/80 94 Intake/Output Intake/Output: Intake & Output 04/11/24 04/12/24 04/13/24 04/14/24 23:59 23:59 23:59 23:59 Intake Total 1100 5105 0293 152
[2024-04-14 13:27] LABS: Uric Acid 5.5 mg/dL (2.5-7.5)
[2024-04-14] MEDS: traZODone HCL 50 MG TABLET PO (20:35)
[2024-04-14] MEDS: MELATONIN 5 MG TABLET PO (20:35)
--- NOTE | 2024-04-14 22:42 | PC.NURSE ---
While making rounds to assess patient, pt c/o weakness in left hand that she states has been going on since this afternoon 04/14. Left hand conference service coordinator is noticeably weaker and pt hand collapses when attempting to push. No upper arm weakness or sensation deficit. Dr Stapleton notified and order received for head CT, results were negative for acute changes.
--- NOTE | 2024-04-14 23:16 | PM.EVENT ---
Event Note Event Note Event Note: Nursing staff called to notify me that the patient is having left wrist weakness. When the patient puts any weight on her left hand her wrist and extremity collapse. This is evidently been ongoing since early afternoon. Patient did not have any pronator drift, difficulty with [id number], decreased sensation, changes in speech or any lower extremity symptoms. Stat CT noncontrast of the brain was performed which demonstrated mild scattered white matter hypoattenuation consistent with chronic small-vessel ischemic disease with no acute intercranial process. I did not feel comfortable ordering a CTA of the brain and carotids on the patient given her chronic renal failure in the fact that the patient is already outside the window for intervention with tPA. The patient has not had definitive CVA. When I admitted the patient earlier this month family had mentioned the possibility of a TIA but I can not recall if patient had an MRI performed at that time. The patient has a very flat affect on evaluation and is slow to respond. She has chronic hearing loss which causes some difficulty with communication and getting history. GENERAL: Obese, chronically ill-appearing, appears older than stated age HEENT: Mucous membranes are tacky, BiPAP in place, pupils are equal and reactive, crowded oral airway, large neck circumference CARDIOVASCULAR: Regular rate, irregularly irregular rhythm, 2+ bilateral radial pulses, weak pedal pulses, no obvious JVD RESPIRATORY: Decreased breath sounds bilaterally, no increased work of breathing ABDOMEN: Distended, soft, large soft easily reducible umbilical hernia INTEGUMENT: Generalized pallor, non jaundice, dried flaking skin to the feet, no foot wounds NEUROLOGIC: Alert, flat affect, oriented to person and place, speech is slow but clear, no obvious facial asymmetry but exam limited by BiPAP, extraocular movements intact, weak supervisor mold yard strength on the left, cpzeno-hy-hves intact, patient was not able to complete heel to siddiqi but this seemed to be more of a communication barrier than maybe physical limitation, patient having difficulty picking her legs up off the bed bilaterally is not worse 1 side versus the other, sensation intact NIH stroke scale but on due to difficulty answering what month it currently is patient has weakness of her extremities but does not have drift, patient is intermittently jerking all extremities but no specific pattern PSYCHIATRIC: Flat affect, cooperative EXTREMITIES: No pitting edema, weak but equal movement of bilateral feet ankles, no pronator drift, 3/5 supervisor mold yard strength on the left, 4/5 supervisor mold yard strength on the right Assessment and plan: Upper extremity weakness left greater than right--CT did not demonstrate any evidence of acute CVA. Patient's last known well as uncertain but patient reports weakness since the afternoon. Patient goes to lean on her left arm to reposition herself in bed in her wrist in arm collapse. Patient has not had any progression or change in her symptoms since onset that I can determine. Will order neuro checks q.4 hours. The patient is already on Eliquis. Will add 81 mg aspirin. I am going to hold off on a CT of the head and neck due to the patient's renal function. May consider noncontrast MRI to further evaluate for possible CVA. A symptoms could also be residual due to the patient's recent cardiac arrest. She is at her higher risk for CVA given atrial fibrillation. Will add 81 mg aspirin. The patient is somewhat somnolent. Will check ABG. The patient's serum bicarb is up to 40. The patient had been down her around 37. Patient is a chronic CO2 retainer. Patient is wearing BiPAP at and is pulling adequate tidal volumes. 40 minute spent in critical care activities Due to a high probability of clinically significant, life threatening deterioration, the patient required my highest level of preparedness to intervene emergently and I personall
[2024-04-14 23:47] LABS: Glucose Point of Care 157 mg/dl (65-105)
[2024-04-15] VITALS (20 sets, daily range): BP systolic 132–166; BP diastolic 51–79; PULSE 74–115; RESP 12–27; TEMP 36.1–36.2; O2SAT 77–99
[2024-04-15 02:07] LABS: Base Excess ABG 9.9 mEq/l (+/-2.0); Fractional Inspired Oxygen 36 %; HCO3 ABG 38.6 mEq/l (22.0-26.0); Oxygen Saturation ABG 91.4 % (95.0-100.0); Oxyhemoglobin 93.9 % THb (90.0-100.0); PO2 ABG 69.1 mmHg (80.0-100.0); PO2 FiO2 Ratio Arterial Blood 1.92 %; Total Hemoglobin 11.3 g/dL (12.0-18.0); pH ABG 7.312 (7.350-7.450)
[2024-04-15 02:13] LABS: Modified Allen's Test Pass; PCO2 ABG 78.1 mmHg (35.0-45.0); Site Drawn LEFT RADIAL
[2024-04-15 02:14] LABS: Device OTHER DEVICE
--- NOTE | 2024-04-15 02:49 | PC.NURSE ---
(@2330) Dr Stapleton at bedside to follow up with acute left arm weakness. Pt was difficult to arouse and exhibited confusion during provider assessment. (@0150) ABGs and q4hr neuro checks ordered. Abnormal ABG results relayed to Dr Stapleton by Billie HDEZ. Pt placed on continuous Bipap per provider order, ABG re-draw ordered for 0600. Pt was able to use bedside commode via sarasteady and was communicating appropriately just prior to being placed on Bipap. Pt educated on hypercapnia and Bipap treatment, pt verbalized understanding at that time (0240)
[2024-04-15] MEDS: ALBUTEROL SULFATE NEB 2.5 MG/3 ML INH 5 MG INHALATION ×4 (03:24→20:26)
[2024-04-15] MEDS: IPRATROPIUM BR 0.02% INH SOLN 0.5 MG/2.5 ML VIAL INHALATION ×4 (03:25→20:26)
[2024-04-15 05:11] LABS: Basophils Percent Auto 0.2 % (0.2-1.2); Eosinophils Absolute Auto 0.2 K/mm3 (0-0.3); Eosinophils Percent Auto 1.4 % (0-4.4); Hematocrit 28.6 % (37.0-47.0); Immature Granulocyte Absolute 0.25 K/mm3 (0.00-0.031); Immature Granulocyte Percent A 1.7 % (0-0.5); Lymphocytes Absolute Auto 0.93 K/mm3 (0.9-3.2); Lymphocytes Percent Auto 6.4 % (18.3-44.2); Mean Corpuscular HGB Conc 31.5 g/dl (32-36); Mean Corpuscular Hemoglobin 32.7 pg (26-34); Mean Platelet Volume 12.5 fl (7.4-10.4); Monocytes Absolute Auto 0.8 K/mm3 (0.1-0.6); Monocytes Percent Auto 5.3 % (2.6-8.5); Neutrophils Absolute Auto 12.4 K/mm3 (1.3-6.7); Platelet Count Result 236 k/mm3 (150-375); Red Blood Count 2.75 M/mm3 (4.2-5.4); Red Cell Distribution Width 13.1 % (11.5-14.5); White Blood Count 14.6 K/mm3 (4.5-10.0)
[2024-04-15 05:25] LABS: Alanine Aminotransferase 40 U/L (6-35); Albumin Level 2.9 g/dL (3.5-5.1); Alkaline Phosphatase 73 U/L (38-126); Aspartate Amino Transferase 21 U/L (14-36); Bilirubin,Total 0.3 mg/dL (0.2-1.3); Blood Urea Nitrogen 34 mg/dL (7-17); Calcium 8.8 mg/dL (8.4-10.2); Carbon Dioxide > 40 mmol/L (22-30); Chloride 97 mmol/L (98-107); Estimated CRCL calculation 46 ml/min; Estimated Glomerular Filt Rate 38; Glucose 121 mg/dL (65-110); Magnesium 1.7 mg/dL (1.6-2.3); Potassium 4.3 mmol/L (3.4-5.0); Sodium 140 mmol/L (137-145)
--- NOTE | 2024-04-15 05:45 | PC.NURSE ---
On 04/14/24 & 04/15/24, the DOOR LINER HELPER, [Unique Briggs], provided care and completed [facility] documentation on this patient. I have reviewed the DOOR LINER HELPER's documentation and agree with the findings.
[2024-04-15 05:46] LABS: Procalcitonin 0.1 ng/mL
[2024-04-15 06:28] LABS: Alveolar/Arterial O2 Gradient 80.9 mmHg; Base Excess ABG 10.3 mEq/l (+/-2.0); Fractional Inspired Oxygen 36 %; HCO3 ABG 38.5 mEq/l (22.0-26.0); Oxygen Saturation ABG 95.6 % (95.0-100.0); Oxyhemoglobin 96.5 % THb (90.0-100.0); PO2 ABG 88.1 mmHg (80.0-100.0); PO2 FiO2 Ratio Arterial Blood 2.45 %; Total Hemoglobin 10.2 g/dL (12.0-18.0); pH ABG 7.325 (7.350-7.450)
[2024-04-15 06:32] LABS: Device BIPAP; Expiratory Pressure 8 cmH2O; Inspiratory Pressure 18 cmH2O; Modified Allen's Test Pass; PCO2 ABG 75.6 mmHg (35.0-45.0); Site Drawn RIGHT RADIAL
[2024-04-15] MEDS: ACETAMINOPHEN 325 MG TABLET 650 MG PO (06:33)
[2024-04-15] MEDS: SALINE LOCK FLUSH 10 ML IV PUSH ×3 (06:42→21:19)
--- NOTE | 2024-04-15 09:02 | PM.CNOR ---
Assessment and Plan Assessment and plan (1) Gout attack: Qualifiers: Gout site: toe Gout etiology: unspecified cause Laterality: left Qualified Code(s): M10.9 - Gout, unspecified Code(s): M10.9 - Gout, unspecified Status: Acute Assessment and Plan: History, exam and radiographs reviewed with the patient. Radiographs of the left foot reveal no definitive osteolysis to suggest osteomyelitis or other acute osseous abnormality. Polyarticular osteoarthritis, moderate at the talonavicular articulation and mild at many of the remaining joints in the left foot. No open wounds. Mild improvement in erythema in comparison to demarcated lines from yesterday. Suspect gout flare with patient's history of gout and most recent medical stress and kidney function. Condition, nature, etiology and course of natural history discussed. Conservative and operative treatment options reviewed as well as the risks and benefits of both. Current uric acid level normal. Could consider acute gout flare medication with initiation of prophylactic gout treatment. Will defer treatment of choice to hospitalist service given current acute medical concerns. Thank you for allowing us to assist in the care of this patient. Please contact us with any further concerns or worsening condition and concern for surgical intervention. (2) Leukocytosis: Code(s): D72.829 - Elevated white blood cell count, unspecified Status: Acute Assessment and Plan: Improvement from yesterday. Unlikely related to the great toe without active signs of infection or OM. Defer to medicine team. Plan Reviewed history, exam, radiographs and current labs with attending MD and covering surgeon, Dr. Mcelroy, who agrees with current plan as indicated above. No further recommendations from Dr. Mcelroy at this time. History of Present Illness HPI Consult date: 04/15/24 Requesting physician: Rosalie Villa MD Consult reason: other (left great toe erythema ) Chief complaint: Cardiac arrest Narrative: Orthopedic consult requested for left great toe erythema and leukocytosis. 63 year old female admitted initially with cardiac arrest and now with continued leukocytosis and erythema of the left great toe. Radiographs of the left great toe reveal no definitive osteolysis to suggest osteomyelitis or other acute osseous abnormality. She has a history of gout which she reports is often in the right great toe or left knee. No open or draining wound of the left foot/toe today. Orthopedic consult requested by the hospitalist service. Review of Systems Review of Systems: All systems reviewed & are unremarkable except as noted in HPI and below [facility] Past Medical History Medical History (Updated 04/15/24 @ 09:46 by MARYCARMEN Alberto) COPD (chronic obstructive pulmonary disease) GERD (gastroesophageal reflux disease) Gout attack Hyperlipidemia Hypertension Insomnia Morbid obesity Obstructive sleep apnea treated with BiPAP Tobacco abuse disorder Vitamin D deficiency Surgical History Surgical History History of arthroscopy of both knees History of ileostomy (~2021) due to fistula repair and she chose not to reverse ostomy History of oral surgery (07/2020) Excision of cyst from the hard palate History of total abdominal hysterectomy and bilateral salpingo-oophorectomy (~1996) Family History Family History Mother Diabetes mellitus Hypertension Hyperlipidemia Father Medical history unknown Social History Social History Social History: The patient is . She smoked 1.5 packs per day since she was a teenager but quit December 2023. She has no known history of alcohol use or illicit substance use. She has 1 son. Her has bilat lower ext amputations and is wheelchair dependant. She also raised
[2024-04-15] MEDS: ATORVASTATIN 20 MG TABLET PO (09:28)
[2024-04-15] MEDS: LINEZOLID 600 MG TABLET PO ×2 (09:28→20:22)
[2024-04-15] MEDS: METOPROLOL TARTRATE 50 MG TAB 100 MG PO ×2 (09:28→20:21)
[2024-04-15] MEDS: PANTOPRAZOLE 40 MG TABLET PO (09:28)
[2024-04-15] MEDS: ASPIRIN 81 MG ENTERIC TABLET PO (09:28)
[2024-04-15] MEDS: LOSARTAN POTASSIUM 50 MG TABLET PO (09:29)
[2024-04-15] MEDS: amLODIPine BESYLATE 10 MG TABLET PO (09:29)
[2024-04-15] MEDS: TOLNAFTATE 1% POWDER 45 GM BTL 1 APPLIC TOPICAL ×2 (09:29→21:19)
[2024-04-15] MEDS: APIXABAN 5 MG TABLET PO ×2 (09:29→17:11)
--- NOTE | 2024-04-15 10:07 | PM.IMPN ---
Progress Note: A&P Assessment and Plan (1) Gout attack: Qualifiers: Gout etiology: unspecified cause Gout site: toe Laterality: left Qualified Code(s): M10.9 - Gout, unspecified Code(s): M10.9 - Gout, unspecified Status: Acute (2) Leukocytosis: Code(s): D72.829 - Elevated white blood cell count, unspecified Status: Acute (3) Hyperlipidemia: Code(s): E78.5 - Hyperlipidemia, unspecified Status: Acute (4) Hypertension: Code(s): I10 - Essential (primary) hypertension Status: Chronic (5) Obstructive sleep apnea treated with BiPAP: Code(s): G47.33 - Obstructive sleep apnea (adult) (pediatric) Status: Acute (6) Acute on chronic respiratory failure with hypoxia and hypercapnia: Code(s): J96.21 - Acute and chronic respiratory failure with hypoxia; J96.22 - Acute and chronic respiratory failure with hypercapnia Status: Acute (7) COPD exacerbation: Code(s): J44.1 - Chronic obstructive pulmonary disease with (acute) exacerbation Status: Acute (8) Pulmonary embolism: Qualifiers: Pulmonary embolism type: single subsegmental (without acute cor pulmonale) Qualified Code(s): I26.93 - Single subsegmental pulmonary embolism without acute cor pulmonale Code(s): I26.99 - Other pulmonary embolism without acute cor pulmonale Status: Acute (9) Cardiac arrest due to respiratory disorder: Code(s): J98.9 - Respiratory disorder, unspecified; I46.8 - Cardiac arrest due to other underlying condition Status: Acute (10) Transaminitis: Code(s): R74.01 - Elevation of levels of liver transaminase levels Status: Acute (11) Lactic acidosis: Code(s): E87.20 - Acidosis, unspecified Status: Acute (12) Sepsis: Code(s): A41.9 - Sepsis, unspecified organism Status: Acute (13) NUNU (acute kidney injury): Code(s): N17.9 - Acute kidney failure, unspecified Status: Acute Plan Ms. De Anda is a 63F with past medical history morbid obesity with BMI greater than 40, obstructive sleep apnea, chronic hypoxic and hypercarbic respiratory failure on chronic O2 and BiPAP, hyperlipidemia, GERD, gout, vitamin-D deficiency, colostomy status post fistula surgery, chronic insomnia. She presented on 04/03/2024 to [facility] via EMS for witnessed respiratory distress followed by cardiac arrest. At home, she apparently was having breathing issues and asked her for her breathing machine. By the time the returned to the room she was unresponsive. EMS was called and the patient was noted to be in PEA arrest. She received several rounds of epinephrine in the field and had a laryngeal airway placed and was subsequently transferred to the ER. At the ER she was still pulseless and received additional rounds of bicarb and epinephrine and was subsequently intubated. Eventually she had return of spontaneous circulation and was placed on mechanical vent. ABG noted chronic hypercapnic respiratory failure CTA of chest demonstrated a small left lower lobe subsegmental pulmonary emboli with congestive changes concerning for pulmonary edema with a moderate right and small left pleural effusion. Patient was given bronchodilator therapy and steroids for presumed COPD exacerbation. Patient was noted to be hypotensive following intubation which improved with small IV fluid boluses. She was started on heparin infusion and admitted to the ICU on 04/03/2024. Family noted the patient had been in and out of hospitals recently for COPD exacerbations and UTIs. The patient was successfully extubated on 04/07/2024. See below for individual problems #Acute on chronic respiratory failure with hypoxia and hypercarbia #obstructive sleep apnea #Cardiac arrest due to respiratory disorder -reason for admission. Now resolved, extubated on 04/07/2024. -EKG did not show ST elevation, mild elevated troponin -evalu
--- NOTE | 2024-04-15 11:42 | P.PNNP_ITS ---
Progress Note: A&P Assessment and Plan (1) NUNU (acute kidney injury): Code(s): N17.9 - Acute kidney failure, unspecified Status: Acute Assessment and Plan: * fluctuating recently * evaluation to date noted: * urine electrolytes prerenal * urine eosinophils negative * mild proteinuria * renal u/s and CT without obstruction - left kidney atrophy noted * CPK normal * suspect ATN with multifactorial etiology: * respiratory + cardiac arrest * previous hemodynamic instability/hypotension * pre-renal factors(?) * NSAID use prior to admission * contrast exposure (CTA of chest) * infection/sepsis (bacteremia) * sosa malfunction (i.e. clogged) * good urine output noted * follow trend of repeat labs and UOP (2) Acute on chronic respiratory failure with hypoxia and hypercapnia: Code(s): J96.21 - Acute and chronic respiratory failure with hypoxia; J96.22 - Acute and chronic respiratory failure with hypercapnia Status: Acute Assessment and Plan: * resolving * continue supportive therapy * on chronic home oxygen (3) Cardiac arrest due to respiratory disorder: Code(s): J98.9 - Respiratory disorder, unspecified; I46.8 - Cardiac arrest due to other underlying condition Status: Acute Assessment and Plan: * precipitated by respiratory distress/failure (from COPD + pulmonary embolism +/- pulmonary edema) * troponins mildly elevated but no EKG changes noted * Cardiology recommendations noted (4) Sepsis: Code(s): A41.9 - Sepsis, unspecified organism Status: Acute Assessment and Plan: * resolving * due to bacteremia (source not clear) * UA suggestive of UTI but culture negative so far * CT of chest without evidence of pneumonia * blood cultures with Staph epidermis * on antibiotics (5) Pulmonary embolism: Qualifiers: Pulmonary embolism type: single subsegmental (without acute cor pulmonale) Qualified Code(s): I26.93 - Single subsegmental pulmonary embolism without acute cor pulmonale Code(s): I26.99 - Other pulmonary embolism without acute cor pulmonale Status: Acute Assessment and Plan: * as noted by CTA of chest * on Eliquis (6) Hypertension: Code(s): I10 - Essential (primary) hypertension Status: Chronic Assessment and Plan: * reasonable control * continue current medications * follow trend of hemodynamics Will continue to follow. Subjective Date/time seen: 04/15/24 11:42 Interval history: Follow-up for acute kidney injury/acute renal failure. Issues with CO2 retention as noted by recent ABGs; initially was unwilling to use BiPAP but now more receptive to this intervention; no other acute issues or problems voiced. Exam Narrative: General: large female in NAD Heart: normal S1 and S2; no rub Lungs: clear anteriorly; decreased at bases Abdomen: soft, nontender, nondistended, +BS; colostomy in place Extremities: trace edema present Skin: no rash Objective Data Vital Signs Vital Signs: Vital Signs Temp Pulse Resp BP Pulse Ox O2 Del Method O2 Flow Rate 04/15/24 11:00 77 04/15/24 08:00 89 04/15/24 09:58 166/51 H 04/15/24 09:40 90 27 H 92 BiPAP 04/15/24 08:00 97.0 F L 115 H 20 133/79 77 L
--- NOTE | 2024-04-15 11:42 | PM.PNNEP ---
Progress Note: A&P Assessment and Plan (1) NUNU (acute kidney injury): Code(s): N17.9 - Acute kidney failure, unspecified Status: Acute Assessment and Plan: fluctuating recently evaluation to date noted: urine electrolytes prerenal urine eosinophils negative mild proteinuria renal u/s and CT without obstruction - left kidney atrophy noted CPK normal suspect ATN with multifactorial etiology: respiratory + cardiac arrest previous hemodynamic instability/hypotension pre-renal factors(?) NSAID use prior to admission contrast exposure (CTA of chest) infection/sepsis (bacteremia) sosa malfunction (i.e. clogged) good urine output noted follow trend of repeat labs and UOP (2) Acute on chronic respiratory failure with hypoxia and hypercapnia: Code(s): J96.21 - Acute and chronic respiratory failure with hypoxia; J96.22 - Acute and chronic respiratory failure with hypercapnia Status: Acute Assessment and Plan: resolving continue supportive therapy on chronic home oxygen (3) Cardiac arrest due to respiratory disorder: Code(s): J98.9 - Respiratory disorder, unspecified; I46.8 - Cardiac arrest due to other underlying condition Status: Acute Assessment and Plan: precipitated by respiratory distress/failure (from COPD + pulmonary embolism +/- pulmonary edema) troponins mildly elevated but no EKG changes noted Cardiology recommendations noted (4) Sepsis: Code(s): A41.9 - Sepsis, unspecified organism Status: Acute Assessment and Plan: resolving due to bacteremia (source not clear) UA suggestive of UTI but culture negative so far CT of chest without evidence of pneumonia blood cultures with Staph epidermis on antibiotics (5) Pulmonary embolism: Qualifiers: Pulmonary embolism type: single subsegmental (without acute cor pulmonale) Qualified Code(s): I26.93 - Single subsegmental pulmonary embolism without acute cor pulmonale Code(s): I26.99 - Other pulmonary embolism without acute cor pulmonale Status: Acute Assessment and Plan: as noted by CTA of chest on Eliquis (6) Hypertension: Code(s): I10 - Essential (primary) hypertension Status: Chronic Assessment and Plan: reasonable control continue current medications follow trend of hemodynamics Will continue to follow. Subjective Date/time seen: 04/15/24 11:42 Interval history: Follow-up for acute kidney injury/acute renal failure. Issues with CO2 retention as noted by recent ABGs; initially was unwilling to use BiPAP but now more receptive to this intervention; no other acute issues or problems voiced. Exam Narrative: General: large female in NAD Heart: normal S1 and S2; no rub Lungs: clear anteriorly; decreased at bases Abdomen: soft, nontender, nondistended, +BS; colostomy in place Extremities: trace edema present Skin: no rash Objective Data Vital Signs Vital Signs: Vital Signs Temp Pulse Resp BP Pulse Ox O2 Del Method O2 Flow Rate 04/15/24 11:00 77 04/15/24 08:00 89 04/15/24 09:58 166/51 H 04/15/24 09:40 90 27 H 92 BiPAP 04/15/24 08:00 97.0 F L 115 H 20 133/79 77 L 04/15/24 09:28 112 H 04/15/24 08:23 80 20 04/15/24 08:10 86 22 H 04/15/24 08:10 95 Nasal Cannula 3.5 04/15/24 03:40 87 25 H 04/14/24 21:23 95 20 04/15/24 03:25 83 25 H 04/15/24 06:43 79 23 H BiPAP 04/15/24 04:00 78 04/15/24 00:00 84 04/14/24 20:00 86 04/14/24 21:10 92 Nasal Cannula 4 04/14/24 21:12 97.0 F L 87 20 151/103 H 93 04/14/24 21:05 90 20 04/14/24 21:07 95 Nasal Cannula 4 04/14/24 20:34 75 04/14/24 16:00 83 04/14/24 14:52 82 20 Intake/Output Intake/Output: Intake & Output 04/12/24 04/13/2403/31
[2024-04-15 13:38] LABS: Alveolar/Arterial O2 Gradient 68.6 mmHg; Fractional Inspired Oxygen 36 %; HCO3 ABG 37.8 mEq/l (22.0-26.0); Oxygen Content ABG 15.2 %vol (16.0-22.0); Oxygen Saturation ABG 94.5 % (95.0-100.0); Oxyhemoglobin 95.2 % THb (90.0-100.0); PO2 ABG 86.7 mmHg (80.0-100.0); PO2 FiO2 Ratio Arterial Blood 2.41 %; Total Hemoglobin 11.3 g/dL (12.0-18.0)
[2024-04-15 13:46] LABS: pH ABG 7.254 (7.350-7.450)
[2024-04-15 13:47] LABS: Device NASAL CANNULA; Modified Allen's Test Pass; PCO2 ABG 87.4 mmHg (35.0-45.0); Site Drawn LEFT RADIAL
[2024-04-15] MEDS: traMADol HCL (*CRX) 50 MG TABLET PO (14:05)
[2024-04-15] MEDS: MELATONIN 5 MG TABLET PO (20:21)
[2024-04-15] MEDS: traZODone HCL 50 MG TABLET PO (20:21)
[2024-04-16] VITALS (14 sets, daily range): BP systolic 117–148; BP diastolic 74–103; PULSE 69–106; RESP 18–32; TEMP 35.9–36.4; O2SAT 90–98
[2024-04-16] MEDS: ACETAMINOPHEN 325 MG TABLET 650 MG PO (02:53)
[2024-04-16] MEDS: ALBUTEROL SULFATE NEB 2.5 MG/3 ML INH 5 MG INHALATION ×3 (04:40→22:14)
[2024-04-16] MEDS: IPRATROPIUM BR 0.02% INH SOLN 0.5 MG/2.5 ML VIAL INHALATION ×3 (04:40→22:14)
[2024-04-16 04:55] LABS: Alveolar/Arterial O2 Gradient 56.1 mmHg; Base Excess ABG 10.9 mEq/l (+/-2.0); Carboxyhemoglobin 0.3 % THb (0-2.0); Fractional Inspired Oxygen 36 %; HCO3 ABG 40.6 mEq/l (22.0-26.0); Methemoglobin ABG 0.3 %THb (0-1.5); Oxygen Content ABG 14.4 %vol (16.0-22.0); Oxygen Saturation ABG 95.7 % (95.0-100.0); Oxyhemoglobin 96.4 % THb (90.0-100.0); PO2 ABG 94.9 mmHg (80.0-100.0); PO2 FiO2 Ratio Arterial Blood 2.64 %; Total Hemoglobin 10.5 g/dL (12.0-18.0)
[2024-04-16 04:57] LABS: Modified Allen's Test Pass; PCO2 ABG 91.1 mmHg (35.0-45.0); Site Drawn RIGHT RADIAL; pH ABG 7.267 (7.350-7.450)
[2024-04-16 04:58] LABS: Device NASAL CANNULA
--- NOTE | 2024-04-16 06:31 | PC.NURSE ---
On 04/15/24 & 04/16/24, the SUPERVISOR STENO POOL, [Unique Briggs], provided care and completed [employer] documentation on this patient. I have reviewed the SUPERVISOR STENO POOL's documentation and agree with the findings.
[2024-04-16] MEDS: SALINE LOCK FLUSH 10 ML IV PUSH ×3 (06:53→21:45)
[2024-04-16] MEDS: ASPIRIN 81 MG ENTERIC TABLET PO (08:59)
[2024-04-16] MEDS: LINEZOLID 600 MG TABLET PO ×2 (08:59→20:46)
[2024-04-16] MEDS: LOSARTAN POTASSIUM 50 MG TABLET PO (08:59)
[2024-04-16] MEDS: PANTOPRAZOLE 40 MG TABLET PO (08:59)
[2024-04-16] MEDS: METOPROLOL TARTRATE 50 MG TAB 100 MG PO ×2 (08:59→20:45)
[2024-04-16] MEDS: FUROSEMIDE 40 MG TABLET PO (08:59)
[2024-04-16] MEDS: amLODIPine BESYLATE 10 MG TABLET PO (09:00)
[2024-04-16] MEDS: TOLNAFTATE 1% POWDER 45 GM BTL 1 APPLIC TOPICAL ×2 (09:00→21:44)
[2024-04-16] MEDS: APIXABAN 5 MG TABLET PO ×2 (09:00→17:24)
[2024-04-16] MEDS: SALINE LOCK FLUSH 20 ML IV PUSH (09:00)
[2024-04-16] MEDS: ATORVASTATIN 20 MG TABLET PO (09:00)
[2024-04-16 09:29] LABS: Alanine Aminotransferase 41 U/L (6-35); Albumin Level 3.3 g/dL (3.5-5.1); Alkaline Phosphatase 92 U/L (38-126); Aspartate Amino Transferase 25 U/L (14-36); Bilirubin,Total 0.5 mg/dL (0.2-1.3); Blood Urea Nitrogen 28 mg/dL (7-17); Calcium 8.6 mg/dL (8.4-10.2); Carbon Dioxide > 40 mmol/L (22-30); Chloride 95 mmol/L (98-107); Estimated CRCL calculation 50 ml/min; Estimated Glomerular Filt Rate 42; Glucose 184 mg/dL (65-110); Magnesium 1.6 mg/dL (1.6-2.3); Potassium 4.5 mmol/L (3.4-5.0); Sodium 139 mmol/L (137-145)
[2024-04-16 09:32] LABS: Basophils Absolute Auto 0.1 K/mm3 (0.0-0.1); Basophils Percent Auto 0.5 % (0.2-1.2); Eosinophils Absolute Auto 0.2 K/mm3 (0-0.3); Eosinophils Percent Auto 1.3 % (0-4.4); Hematocrit 33.2 % (37.0-47.0); Hemoglobin 10.3 g/dL (12.0-15.0); Immature Granulocyte Absolute 0.21 K/mm3 (0.00-0.031); Immature Granulocyte Percent A 1.3 % (0-0.5); Lymphocytes Absolute Auto 1.43 K/mm3 (0.9-3.2); Lymphocytes Percent Auto 8.7 % (18.3-44.2); Mean Corpuscular Hemoglobin 32.7 pg (26-34); Mean Corpuscular Volume 105.4 fl (80-100); Mean Platelet Volume 12.4 fl (7.4-10.4); Monocytes Absolute Auto 1.1 K/mm3 (0.1-0.6); Monocytes Percent Auto 6.4 % (2.6-8.5); Neutrophils Absolute Auto 13.4 K/mm3 (1.3-6.7); Neutrophils Percent Auto 81.8 % (45.5-73.1); Platelet Count Result 302 k/mm3 (150-375); Red Blood Count 3.15 M/mm3 (4.2-5.4); White Blood Count 16.4 K/mm3 (4.5-10.0)
[2024-04-16 10:10] LABS: Procalcitonin 0.1 ng/mL
[2024-04-16 10:27] LABS: Anisocytosis 1+; Macrocytosis 1+ (NORMAL); Platelet Estimate Adequate (Adequate); Schistocytes None Seen
--- NOTE | 2024-04-16 12:48 | PM.IMPN ---
Progress Note: A&P Assessment and Plan (1) Gout attack: Qualifiers: Gout site: toe Gout etiology: unspecified cause Laterality: left Qualified Code(s): M10.9 - Gout, unspecified Code(s): M10.9 - Gout, unspecified Status: Acute (2) Leukocytosis: Code(s): D72.829 - Elevated white blood cell count, unspecified Status: Acute (3) Hyperlipidemia: Code(s): E78.5 - Hyperlipidemia, unspecified Status: Acute (4) Hypertension: Code(s): I10 - Essential (primary) hypertension Status: Chronic (5) Obstructive sleep apnea treated with BiPAP: Code(s): G47.33 - Obstructive sleep apnea (adult) (pediatric) Status: Acute (6) Acute on chronic respiratory failure with hypoxia and hypercapnia: Code(s): J96.21 - Acute and chronic respiratory failure with hypoxia; J96.22 - Acute and chronic respiratory failure with hypercapnia Status: Acute (7) COPD exacerbation: Code(s): J44.1 - Chronic obstructive pulmonary disease with (acute) exacerbation Status: Acute (8) Pulmonary embolism: Qualifiers: Pulmonary embolism type: single subsegmental (without acute cor pulmonale) Qualified Code(s): I26.93 - Single subsegmental pulmonary embolism without acute cor pulmonale Code(s): I26.99 - Other pulmonary embolism without acute cor pulmonale Status: Acute (9) Cardiac arrest due to respiratory disorder: Code(s): J98.9 - Respiratory disorder, unspecified; I46.8 - Cardiac arrest due to other underlying condition Status: Acute (10) Transaminitis: Code(s): R74.01 - Elevation of levels of liver transaminase levels Status: Acute (11) Lactic acidosis: Code(s): E87.20 - Acidosis, unspecified Status: Acute (12) Sepsis: Code(s): A41.9 - Sepsis, unspecified organism Status: Acute (13) NUNU (acute kidney injury): Code(s): N17.9 - Acute kidney failure, unspecified Status: Acute Plan Ms. De Anda is a 63F with past medical history morbid obesity with BMI greater than 40, obstructive sleep apnea, chronic hypoxic and hypercarbic respiratory failure on chronic O2 and BiPAP, hyperlipidemia, GERD, gout, vitamin-D deficiency, colostomy status post fistula surgery, chronic insomnia. She presented on 04/03/2024 to [facility] via EMS for witnessed respiratory distress followed by cardiac arrest. At home, she apparently was having breathing issues and asked her for her breathing machine. By the time the returned to the room she was unresponsive. EMS was called and the patient was noted to be in PEA arrest. She received several rounds of epinephrine in the field and had a laryngeal airway placed and was subsequently transferred to the ER. At the ER she was still pulseless and received additional rounds of bicarb and epinephrine and was subsequently intubated. Eventually she had return of spontaneous circulation and was placed on mechanical vent. ABG noted chronic hypercapnic respiratory failure CTA of chest demonstrated a small left lower lobe subsegmental pulmonary emboli with congestive changes concerning for pulmonary edema with a moderate right and small left pleural effusion. Patient was given bronchodilator therapy and steroids for presumed COPD exacerbation. Patient was noted to be hypotensive following intubation which improved with small IV fluid boluses. She was started on heparin infusion and admitted to the ICU on 04/03/2024. Family noted the patient had been in and out of hospitals recently for COPD exacerbations and UTIs. The patient was successfully extubated on 04/07/2024. See below for individual problems 04/16/2024: As noted in the subjective portions, the patient has on multiple occasions refused noninvasive ventilator and less at his her own trilogy. At that, she only or 3 hours throughout the night. PCO2 was very high. Advised the patient this is her life-
--- NOTE | 2024-04-16 13:13 | P.PNNP_ITS ---
Progress Note: A&P Assessment and Plan (1) NUNU (acute kidney injury): Code(s): N17.9 - Acute kidney failure, unspecified Status: Acute Assessment and Plan: * fluctuating recently * evaluation to date noted: * urine electrolytes prerenal * urine eosinophils negative * mild proteinuria * renal u/s and CT without obstruction - left kidney atrophy noted * CPK normal * suspect ATN with multifactorial etiology: * respiratory + cardiac arrest * previous hemodynamic instability/hypotension * pre-renal factors(?) * NSAID use prior to admission * contrast exposure (CTA of chest) * infection/sepsis (bacteremia) * sosa malfunction (i.e. clogged) * good urine output noted * CO2 seems to be relatively stable at around 1.3. (2) Acute on chronic respiratory failure with hypoxia and hypercapnia: Code(s): J96.21 - Acute and chronic respiratory failure with hypoxia; J96.22 - Acute and chronic respiratory failure with hypercapnia Status: Acute Assessment and Plan: * Acute issues better but still has substantial chronic respiratory failure. * continue BiPAP, incentive spirometer, and the rest of the supportive care for her lungs. * on chronic home oxygen (3) Cardiac arrest due to respiratory disorder: Code(s): J98.9 - Respiratory disorder, unspecified; I46.8 - Cardiac arrest due to other underlying condition Status: Acute Assessment and Plan: * precipitated by respiratory distress/failure (from COPD + pulmonary embolism +/- pulmonary edema) * troponins mildly elevated but no EKG changes noted * Cardiology on the case (4) Sepsis: Code(s): A41.9 - Sepsis, unspecified organism Status: Acute Assessment and Plan: * resolving * due to bacteremia (source not clear) * UA suggestive of UTI but culture negative so far * CT of chest without evidence of pneumonia * blood cultures with Staph epidermis * on linezolid (5) Pulmonary embolism: Qualifiers: Pulmonary embolism type: single subsegmental (without acute cor pulmonale) Qualified Code(s): I26.93 - Single subsegmental pulmonary embolism without acute cor pulmonale Code(s): I26.99 - Other pulmonary embolism without acute cor pulmonale Status: Acute Assessment and Plan: * as noted by CTA of chest * on Eliquis (6) Hypertension: Code(s): I10 - Essential (primary) hypertension Status: Chronic Assessment and Plan: * systolic 110s to 160s. Usually below 140. * On amlodipine 10, furosemide 40, losartan 50, metoprolol 100 q12. * See other blood pressures over the next 24hours Will continue to follow. Subjective Date/time seen: 04/16/24 13:13 Interval history: Isabel feels okay. she is on some oxygen. She has significant CO2 retention. Exam Narrative: General: large female in NAD Heart: normal S1 and S2; no rub or gallop Lungs: clear anteriorly; decreased at bases Abdomen: soft, nontender, nondistended, +BS; colostomy in place Extremities: trace edema present Skin: no rash Or subcu nodules Objective Data Vital Signs Vital Signs: Vital Signs - 24 hr 04/15/24 15:22 04/15/24 15:32 04/15/24 15:44 Temperature 97.1 F L Pulse Rate 74 79 85 Respiratory Rate 12 20 20 Blood Pressure 132/70 Pulse Oximetry 99
--- NOTE | 2024-04-16 13:13 | PM.PNNEP ---
Progress Note: A&P Assessment and Plan (1) NUNU (acute kidney injury): Code(s): N17.9 - Acute kidney failure, unspecified Status: Acute Assessment and Plan: fluctuating recently evaluation to date noted: urine electrolytes prerenal urine eosinophils negative mild proteinuria renal u/s and CT without obstruction - left kidney atrophy noted CPK normal suspect ATN with multifactorial etiology: respiratory + cardiac arrest previous hemodynamic instability/hypotension pre-renal factors(?) NSAID use prior to admission contrast exposure (CTA of chest) infection/sepsis (bacteremia) sosa malfunction (i.e. clogged) good urine output noted CO2 seems to be relatively stable at around 1.3. (2) Acute on chronic respiratory failure with hypoxia and hypercapnia: Code(s): J96.21 - Acute and chronic respiratory failure with hypoxia; J96.22 - Acute and chronic respiratory failure with hypercapnia Status: Acute Assessment and Plan: Acute issues better but still has substantial chronic respiratory failure. continue BiPAP, incentive spirometer, and the rest of the supportive care for her lungs. on chronic home oxygen (3) Cardiac arrest due to respiratory disorder: Code(s): J98.9 - Respiratory disorder, unspecified; I46.8 - Cardiac arrest due to other underlying condition Status: Acute Assessment and Plan: precipitated by respiratory distress/failure (from COPD + pulmonary embolism +/- pulmonary edema) troponins mildly elevated but no EKG changes noted Cardiology on the case (4) Sepsis: Code(s): A41.9 - Sepsis, unspecified organism Status: Acute Assessment and Plan: resolving due to bacteremia (source not clear) UA suggestive of UTI but culture negative so far CT of chest without evidence of pneumonia blood cultures with Staph epidermis on linezolid (5) Pulmonary embolism: Qualifiers: Pulmonary embolism type: single subsegmental (without acute cor pulmonale) Qualified Code(s): I26.93 - Single subsegmental pulmonary embolism without acute cor pulmonale Code(s): I26.99 - Other pulmonary embolism without acute cor pulmonale Status: Acute Assessment and Plan: as noted by CTA of chest on Eliquis (6) Hypertension: Code(s): I10 - Essential (primary) hypertension Status: Chronic Assessment and Plan: systolic 110s to 160s. Usually below 140. On amlodipine 10, furosemide 40, losartan 50, metoprolol 100 q12. See other blood pressures over the next 24hours Will continue to follow. Subjective Date/time seen: 04/16/24 13:13 Interval history: Isabel feels okay. she is on some oxygen. She has significant CO2 retention. Exam Narrative: General: large female in NAD Heart: normal S1 and S2; no rub or gallop Lungs: clear anteriorly; decreased at bases Abdomen: soft, nontender, nondistended, +BS; colostomy in place Extremities: trace edema present Skin: no rash Or subcu nodules Objective Data Vital Signs Vital Signs: Vital Signs - 24 hr 04/15/24 15:22 04/15/24 15:32 04/15/24 15:44 Temperature 97.1 F L Pulse Rate 74 79 85 Respiratory Rate 12 20 20 Blood Pressure 132/70 Pulse Oximetry 99 Oxygen Delivery Oxygen Flow Rate 04/15/24 16:00 04/15/24 20:21 04/15/24 20:28 Temperature Pulse Rate 83 90 90 Respiratory Rate Blood Pressure Pulse Oximetry 95 Oxygen Delivery Nasal Cannula Oxygen Flow Rate 4 04/15/24 20:28 04/15/24 20:41 04/15/24 20:00 Temperature Pulse Rate 90 103 H Respiratory Rate 20 20 Blood Pressure Pulse Oximetry 90 Oxygen Delivery Nasal Cannula Oxygen Flow Rate 4 04/15/24 20:00 04/15/24 22:07 04/16/24 00:00 Temperature 97.5 F L Pulse Rate 84 75 Respiratory Rate 18 Blood Pressure 117/74 Pulse Oximetry 96 Oxygen Delivery CPA
[2024-04-16 20:33] LABS: Glucose Point of Care 145 mg/dl (65-105)
[2024-04-16] MEDS: traZODone HCL 50 MG TABLET PO (20:45)
[2024-04-16] MEDS: MELATONIN 5 MG TABLET PO (20:46)
[2024-04-17] VITALS (18 sets, daily range): BP systolic 128–181; BP diastolic 88–106; PULSE 69–102; RESP 18–30; TEMP 36–36.4; O2SAT 89–98
[2024-04-17 05:44] LABS: Basophils Absolute Auto 0.1 K/mm3 (0.0-0.1); Basophils Percent Auto 0.5 % (0.2-1.2); Eosinophils Absolute Auto 0.2 K/mm3 (0-0.3); Eosinophils Percent Auto 0.9 % (0-4.4); Hematocrit 33.5 % (37.0-47.0); Immature Granulocyte Absolute 0.18 K/mm3 (0.00-0.031); Immature Granulocyte Percent A 1.1 % (0-0.5); Lymphocytes Absolute Auto 1.49 K/mm3 (0.9-3.2); Lymphocytes Percent Auto 8.7 % (18.3-44.2); Mean Corpuscular HGB Conc 29.9 g/dl (32-36); Mean Corpuscular Hemoglobin 31.6 pg (26-34); Mean Platelet Volume 11.8 fl (7.4-10.4); Monocytes Absolute Auto 0.9 K/mm3 (0.1-0.6); Neutrophils Absolute Auto 14.4 K/mm3 (1.3-6.7); Neutrophils Percent Auto 83.8 % (45.5-73.1); Platelet Count Result 308 k/mm3 (150-375); Red Blood Count 3.16 M/mm3 (4.2-5.4); Red Cell Distribution Width 12.8 % (11.5-14.5); White Blood Count 17.1 K/mm3 (4.5-10.0)
[2024-04-17 06:02] LABS: Albumin Level 3.3 g/dL (3.5-5.1); Blood Urea Nitrogen 27 mg/dL (7-17); Calcium 8.8 mg/dL (8.4-10.2); Carbon Dioxide > 40 mmol/L (22-30); Chloride 94 mmol/L (98-107); Estimated CRCL calculation 54 ml/min; Estimated Glomerular Filt Rate 46; Glucose 157 mg/dL (65-110); Magnesium 1.5 mg/dL (1.6-2.3); Potassium 4.6 mmol/L (3.4-5.0); Sodium 140 mmol/L (137-145)
[2024-04-17] MEDS: SALINE LOCK FLUSH 10 ML IV PUSH ×2 (06:27→20:57)
[2024-04-17 06:30] LABS: Procalcitonin 0.1 ng/mL
[2024-04-17] MEDS: ALBUTEROL SULFATE NEB 2.5 MG/3 ML INH 5 MG INHALATION ×3 (08:04→20:56)
[2024-04-17] MEDS: IPRATROPIUM BR 0.02% INH SOLN 0.5 MG/2.5 ML VIAL INHALATION ×3 (08:05→20:56)
[2024-04-17] MEDS: APIXABAN 5 MG TABLET PO ×2 (10:26→17:41)
[2024-04-17] MEDS: amLODIPine BESYLATE 10 MG TABLET PO (10:26)
[2024-04-17] MEDS: ASPIRIN 81 MG ENTERIC TABLET PO (10:27)
[2024-04-17] MEDS: FUROSEMIDE 40 MG TABLET PO (10:27)
[2024-04-17] MEDS: METOPROLOL TARTRATE 50 MG TAB 100 MG PO ×2 (10:27→20:56)
[2024-04-17] MEDS: LOSARTAN POTASSIUM 50 MG TABLET PO ×2 (10:27→17:47)
[2024-04-17] MEDS: LINEZOLID 600 MG TABLET PO ×2 (10:28→20:57)
[2024-04-17] MEDS: PANTOPRAZOLE 40 MG TABLET PO (10:28)
[2024-04-17] MEDS: ATORVASTATIN 20 MG TABLET PO (10:28)
--- NOTE | 2024-04-17 10:33 | P.PNNP_ITS ---
Progress Note: A&P Assessment and Plan (1) NUNU (acute kidney injury): Code(s): N17.9 - Acute kidney failure, unspecified Status: Acute Assessment and Plan: * fluctuating recently * evaluation to date noted: * urine electrolytes prerenal * urine eosinophils negative * mild proteinuria * renal u/s and CT without obstruction - left kidney atrophy noted * CPK normal * suspect ATN with multifactorial etiology: * respiratory + cardiac arrest * previous hemodynamic instability/hypotension * pre-renal factors(?) * NSAID use prior to admission * contrast exposure (CTA of chest) * infection/sepsis (bacteremia) * sosa malfunction (i.e. clogged) * good urine output noted * Creatinine seems to be relatively stable at around 1.2. (2) Acute on chronic respiratory failure with hypoxia and hypercapnia: Code(s): J96.21 - Acute and chronic respiratory failure with hypoxia; J96.22 - Acute and chronic respiratory failure with hypercapnia Status: Acute Assessment and Plan: * Acute issues better but still has substantial chronic respiratory failure. * continue BiPAP, incentive spirometer, and the rest of the supportive care for her lungs. * last pCO2 is substantially. * on chronic home oxygen (3) Cardiac arrest due to respiratory disorder: Code(s): J98.9 - Respiratory disorder, unspecified; I46.8 - Cardiac arrest due to other underlying condition Status: Acute Assessment and Plan: * precipitated by respiratory distress/failure (from COPD + pulmonary embolism +/- pulmonary edema) * troponins mildly elevated but no EKG changes noted * Cardiology on the case (4) Sepsis: Code(s): A41.9 - Sepsis, unspecified organism Status: Acute Assessment and Plan: * resolving * due to bacteremia (source not clear) * UA suggestive of UTI but culture negative so far * CT of chest without evidence of pneumonia * blood cultures with Staph epidermis * on linezolid * white cell count still a bit high but no fever (5) Pulmonary embolism: Qualifiers: Pulmonary embolism type: single subsegmental (without acute cor pulmonale) Qualified Code(s): I26.93 - Single subsegmental pulmonary embolism without acute cor pulmonale Code(s): I26.99 - Other pulmonary embolism without acute cor pulmonale Status: Acute Assessment and Plan: * as noted by CTA of chest * on Eliquis (6) Hypertension: Code(s): I10 - Essential (primary) hypertension Status: Chronic Assessment and Plan: * systolic 120s to 180s. Usually below 140. * On amlodipine 10, furosemide 40, losartan 50, metoprolol 100 q12. * increase losartan to 100 Will continue to follow. Subjective Date/time seen: 04/17/24 10:33 Interval history: patient feels okay. She does have some swelling she uses her CPAP mask every night and also if she naps during the day Exam Narrative: General: large female in NAD Heart: normal S1 and S2; no rub or gallop Lungs: clear anteriorly; decreased at bases Abdomen: soft, nontender, nondistended, +BS; colostomy in place Extremities: trace to 1+ edema present Skin: no rash or subcu nodules Objective Data Vital Signs Vital Signs: Vital Signs - 24 hr 04/16/24 12:00 04/16/24 16:00 04/16/24 16:00 Temperature 97.6 F Pulse Rate 84 95 8
--- NOTE | 2024-04-17 10:33 | PM.PNNEP ---
Progress Note: A&P Assessment and Plan (1) NUNU (acute kidney injury): Code(s): N17.9 - Acute kidney failure, unspecified Status: Acute Assessment and Plan: fluctuating recently evaluation to date noted: urine electrolytes prerenal urine eosinophils negative mild proteinuria renal u/s and CT without obstruction - left kidney atrophy noted CPK normal suspect ATN with multifactorial etiology: respiratory + cardiac arrest previous hemodynamic instability/hypotension pre-renal factors(?) NSAID use prior to admission contrast exposure (CTA of chest) infection/sepsis (bacteremia) sosa malfunction (i.e. clogged) good urine output noted Creatinine seems to be relatively stable at around 1.2. (2) Acute on chronic respiratory failure with hypoxia and hypercapnia: Code(s): J96.21 - Acute and chronic respiratory failure with hypoxia; J96.22 - Acute and chronic respiratory failure with hypercapnia Status: Acute Assessment and Plan: Acute issues better but still has substantial chronic respiratory failure. continue BiPAP, incentive spirometer, and the rest of the supportive care for her lungs. last pCO2 is substantially. on chronic home oxygen (3) Cardiac arrest due to respiratory disorder: Code(s): J98.9 - Respiratory disorder, unspecified; I46.8 - Cardiac arrest due to other underlying condition Status: Acute Assessment and Plan: precipitated by respiratory distress/failure (from COPD + pulmonary embolism +/- pulmonary edema) troponins mildly elevated but no EKG changes noted Cardiology on the case (4) Sepsis: Code(s): A41.9 - Sepsis, unspecified organism Status: Acute Assessment and Plan: resolving due to bacteremia (source not clear) UA suggestive of UTI but culture negative so far CT of chest without evidence of pneumonia blood cultures with Staph epidermis on linezolid white cell count still a bit high but no fever (5) Pulmonary embolism: Qualifiers: Pulmonary embolism type: single subsegmental (without acute cor pulmonale) Qualified Code(s): I26.93 - Single subsegmental pulmonary embolism without acute cor pulmonale Code(s): I26.99 - Other pulmonary embolism without acute cor pulmonale Status: Acute Assessment and Plan: as noted by CTA of chest on Eliquis (6) Hypertension: Code(s): I10 - Essential (primary) hypertension Status: Chronic Assessment and Plan: systolic 120s to 180s. Usually below 140. On amlodipine 10, furosemide 40, losartan 50, metoprolol 100 q12. increase losartan to 100 Will continue to follow. Subjective Date/time seen: 04/17/24 10:33 Interval history: patient feels okay. She does have some swelling she uses her CPAP mask every night and also if she naps during the day Exam Narrative: General: large female in NAD Heart: normal S1 and S2; no rub or gallop Lungs: clear anteriorly; decreased at bases Abdomen: soft, nontender, nondistended, +BS; colostomy in place Extremities: trace to 1+ edema present Skin: no rash or subcu nodules Objective Data Vital Signs Vital Signs: Vital Signs - 24 hr 04/16/24 12:00 04/16/24 16:00 04/16/24 16:00 Temperature 97.6 F Pulse Rate 84 95 83 Respiratory Rate 24 H Blood Pressure 141/86 H Pulse Oximetry 98 Oxygen Delivery Oxygen Flow Rate 04/16/24 20:45 04/16/24 20:00 04/16/24 22:15 Temperature Pulse Rate 98 80 Respiratory Rate 20 Blood Pressure Pulse Oximetry 90 Oxygen Delivery Nasal Cannula Oxygen Flow Rate 4 04/16/24 22:22 04/17/24 00:00 04/16/24 20:00 Temperature 97.5 F L Pulse Rate 82 79 106 H Respiratory Rate 20 18 Blood Pressure 181/88 H Pulse Oximetry 90 Oxygen Delivery Oxygen Flow Rate 04/17/24 00:00 04/17/24 04:00 04/17/24 08:08 Temperature Pulse
--- NOTE | 2024-04-17 10:43 | PCOTNOTE ---
Pt is not appropriate to be seen today per RN due to increase confusion and respiratory issues. Will attempt when appropriate per POC duration/frequency.
--- NOTE | 2024-04-17 10:47 | PC.NURSE ---
During the overnight report, the patient refused the cpap/bipap all night with the exception of 1 hour. During morning assessment, respirations were elevated to 30. Discussed wearing the cpap/bipap over and over and expressed that it was necessary to wear or the result could be . Patient refused several times, but after discussing, patient did wear the cpap/bipap. Patient complained the mask isn't comfortable and was reluctant to wear the mask.
[2024-04-17 10:56] LABS: Alveolar/Arterial O2 Gradient 173.5 mmHg; Base Excess ABG 14.4 mEq/l (+/-2.0); Carboxyhemoglobin 0.8 % THb (0-2.0); Fractional Inspired Oxygen 52 %; HCO3 ABG 44.9 mEq/l (22.0-26.0); Methemoglobin ABG 0.3 %THb (0-1.5); Oxygen Saturation ABG 94.3 % (95.0-100.0); Oxyhemoglobin 95.7 % THb (90.0-100.0); PO2 ABG 85.5 mmHg (80.0-100.0); PO2 FiO2 Ratio Arterial Blood 1.64 %; Reduced Hemoglobin 3.2 %THb (0-5.0); Total Hemoglobin 11.1 g/dL (12.0-18.0)
[2024-04-17 11:02] LABS: pH ABG 7.271 (7.350-7.450)
[2024-04-17 11:03] LABS: PCO2 ABG 99.8 mmHg (35.0-45.0)
[2024-04-17 11:04] LABS: Device OTHER DEVICE; Modified Allen's Test Pass; Site Drawn RIGHT RADIAL
[2024-04-17] MEDS: MAGNESIUM SULF 2 GM/WATER 50ML 2 GM/50 ML BAG IVPB (11:12)
--- NOTE | 2024-04-17 11:51 | PM.IMPN ---
Progress Note: A&P Assessment and Plan (1) Gout attack: Qualifiers: Gout site: toe Gout etiology: unspecified cause Laterality: left Qualified Code(s): M10.9 - Gout, unspecified Code(s): M10.9 - Gout, unspecified Status: Acute (2) Leukocytosis: Code(s): D72.829 - Elevated white blood cell count, unspecified Status: Acute (3) Hyperlipidemia: Code(s): E78.5 - Hyperlipidemia, unspecified Status: Acute (4) Hypertension: Code(s): I10 - Essential (primary) hypertension Status: Chronic (5) Obstructive sleep apnea treated with BiPAP: Code(s): G47.33 - Obstructive sleep apnea (adult) (pediatric) Status: Acute (6) Acute on chronic respiratory failure with hypoxia and hypercapnia: Code(s): J96.21 - Acute and chronic respiratory failure with hypoxia; J96.22 - Acute and chronic respiratory failure with hypercapnia Status: Acute (7) COPD exacerbation: Code(s): J44.1 - Chronic obstructive pulmonary disease with (acute) exacerbation Status: Acute (8) Pulmonary embolism: Qualifiers: Pulmonary embolism type: single subsegmental (without acute cor pulmonale) Qualified Code(s): I26.93 - Single subsegmental pulmonary embolism without acute cor pulmonale Code(s): I26.99 - Other pulmonary embolism without acute cor pulmonale Status: Acute (9) Cardiac arrest due to respiratory disorder: Code(s): J98.9 - Respiratory disorder, unspecified; I46.8 - Cardiac arrest due to other underlying condition Status: Acute (10) Transaminitis: Code(s): R74.01 - Elevation of levels of liver transaminase levels Status: Acute (11) Lactic acidosis: Code(s): E87.20 - Acidosis, unspecified Status: Acute (12) Sepsis: Code(s): A41.9 - Sepsis, unspecified organism Status: Acute (13) NUNU (acute kidney injury): Code(s): N17.9 - Acute kidney failure, unspecified Status: Acute Plan Ms. De Anda is a 63F with past medical history morbid obesity with BMI greater than 40, obstructive sleep apnea, chronic hypoxic and hypercarbic respiratory failure on chronic O2 and BiPAP, hyperlipidemia, atrial fibrillation, GERD, gout, vitamin-D deficiency, colostomy status post fistula surgery, chronic insomnia. She presented on 04/03/2024 to [facility] via EMS for witnessed respiratory distress followed by cardiac arrest. At home, she apparently was having breathing issues and asked her for her breathing machine. By the time the returned to the room she was unresponsive. EMS was called and the patient was noted to be in PEA arrest. She received several rounds of epinephrine in the field and had a laryngeal airway placed and was subsequently transferred to the ER. At the ER she was still pulseless and received additional rounds of bicarb and epinephrine and was subsequently intubated. Eventually she had return of spontaneous circulation and was placed on mechanical vent. ABG noted chronic hypercapnic respiratory failure CTA of chest demonstrated a small left lower lobe subsegmental pulmonary emboli with congestive changes concerning for pulmonary edema with a moderate right and small left pleural effusion. Patient was given bronchodilator therapy and steroids for presumed COPD exacerbation. Patient was noted to be hypotensive following intubation which improved with small IV fluid boluses. She was started on heparin infusion and admitted to the ICU on 04/03/2024. Family noted the patient had been in and out of hospitals recently for COPD exacerbations and UTIs. The patient was successfully extubated on 04/07/2024. See below for individual problems #Acute on chronic respiratory failure with hypoxia and hypercarbia #obstructive sleep apnea #Cardiac arrest due to respiratory disorder -reason for admission. Now resolved, extubated on 04/07/2024. -EKG did not show ST elevation, mild elev
[2024-04-17] MEDS: traZODone HCL 50 MG TABLET PO (20:56)
[2024-04-17] MEDS: MELATONIN 5 MG TABLET PO (20:56)
[2024-04-17] MEDS: ACETAMINOPHEN 325 MG TABLET 650 MG PO (20:56)
[2024-04-17] MEDS: TOLNAFTATE 1% POWDER 45 GM BTL 1 APPLIC TOPICAL (21:00)
[2024-04-17] MEDS: traMADol HCL (*CRX) 50 MG TABLET PO (23:43)
[2024-04-18] VITALS (20 sets, daily range): BP systolic 128–134; BP diastolic 79–96; PULSE 77–128; RESP 16–20; TEMP 36.8–36.9; O2SAT 88–100
[2024-04-18] MEDS: ALBUTEROL SULFATE NEB 2.5 MG/3 ML INH 5 MG INHALATION ×4 (03:01→19:17)
[2024-04-18] MEDS: IPRATROPIUM BR 0.02% INH SOLN 0.5 MG/2.5 ML VIAL INHALATION ×4 (03:01→19:18)
[2024-04-18 05:36] LABS: Basophils Absolute Auto 0.1 K/mm3 (0.0-0.1); Basophils Percent Auto 0.4 % (0.2-1.2); Eosinophils Absolute Auto 0.1 K/mm3 (0-0.3); Eosinophils Percent Auto 0.7 % (0-4.4); Hemoglobin 10.1 g/dL (12.0-15.0); Immature Granulocyte Absolute 0.13 K/mm3 (0.00-0.031); Immature Granulocyte Percent A 0.9 % (0-0.5); Lymphocytes Absolute Auto 1.18 K/mm3 (0.9-3.2); Lymphocytes Percent Auto 7.9 % (18.3-44.2); Mean Corpuscular HGB Conc 30.6 g/dl (32-36); Mean Corpuscular Volume 104.4 fl (80-100); Mean Platelet Volume 12.5 fl (7.4-10.4); Monocytes Absolute Auto 0.8 K/mm3 (0.1-0.6); Monocytes Percent Auto 5.1 % (2.6-8.5); Neutrophils Absolute Auto 12.7 K/mm3 (1.3-6.7); Platelet Count Result 270 k/mm3 (150-375); Red Blood Count 3.16 M/mm3 (4.2-5.4); Red Cell Distribution Width 12.7 % (11.5-14.5)
[2024-04-18 05:50] LABS: Albumin Level 3.4 g/dL (3.5-5.1); Blood Urea Nitrogen 29 mg/dL (7-17); Calcium 8.6 mg/dL (8.4-10.2); Carbon Dioxide > 40 mmol/L (22-30); Chloride 88 mmol/L (98-107); Estimated CRCL calculation 54 ml/min; Estimated Glomerular Filt Rate 46; Glucose 150 mg/dL (65-110); Magnesium 1.7 mg/dL (1.6-2.3); Phosphorus 3.2 mg/dL (2.5-4.5); Potassium 4.4 mmol/L (3.4-5.0); Sodium 139 mmol/L (137-145)
--- NOTE | 2024-04-18 06:20 | PCRCNOTE ---
Patient only wore home bipap unit for 8 minutes last night per RN. She ripped mask off stating the machine was suffocating her. Pt educated by both RT and RN on the importance of wearing it throughout the night. Patient not interested. Pt on 4L nasal cannula (home setting).
[2024-04-18] MEDS: SALINE LOCK FLUSH 10 ML IV PUSH ×3 (06:54→20:30)
[2024-04-18] MEDS: TOLNAFTATE 1% POWDER 45 GM BTL 1 APPLIC TOPICAL ×2 (09:45→20:30)
[2024-04-18] MEDS: FUROSEMIDE 40 MG TABLET PO (09:46)
[2024-04-18] MEDS: ATORVASTATIN 20 MG TABLET PO (09:46)
[2024-04-18] MEDS: ASPIRIN 81 MG ENTERIC TABLET PO (09:46)
[2024-04-18] MEDS: APIXABAN 5 MG TABLET PO ×2 (09:46→17:20)
[2024-04-18] MEDS: amLODIPine BESYLATE 10 MG TABLET PO (09:46)
[2024-04-18] MEDS: LINEZOLID 600 MG TABLET PO ×2 (09:46→20:18)
[2024-04-18] MEDS: LOSARTAN POTASSIUM 50 MG TABLET 100 MG PO (09:47)
[2024-04-18] MEDS: METOPROLOL TARTRATE 50 MG TAB 100 MG PO ×2 (09:47→20:18)
[2024-04-18] MEDS: PANTOPRAZOLE 40 MG TABLET PO (09:47)
[2024-04-18] MEDS: ACETAMINOPHEN 325 MG TABLET 650 MG PO (09:51)
--- NOTE | 2024-04-18 10:32 | P.PNNP_ITS ---
Progress Note: A&P Assessment and Plan (1) NUNU (acute kidney injury): Code(s): N17.9 - Acute kidney failure, unspecified Status: Acute Assessment and Plan: * slow improvement * evaluation to date noted: * urine electrolytes prerenal * urine eosinophils negative * mild proteinuria * renal u/s and CT without obstruction - left kidney atrophy noted * CPK normal * suspect ATN with multifactorial etiology: * respiratory + cardiac arrest * previous hemodynamic instability/hypotension * pre-renal factors(?) * NSAID use prior to admission * contrast exposure (CTA of chest) * infection/sepsis (bacteremia) * sosa malfunction (i.e. clogged) * good urine output noted * follow trend of labs and UOP (2) Acute on chronic respiratory failure with hypoxia and hypercapnia: Code(s): J96.21 - Acute and chronic respiratory failure with hypoxia; J96.22 - Acute and chronic respiratory failure with hypercapnia Status: Acute Assessment and Plan: * acute issues better but still has substantial chronic respiratory failure * continue BiPAP, incentive spirometer, and the rest of the supportive care for her lungs * follow mentation given her propensity for CO2 narcosis * on chronic home oxygen (3) Cardiac arrest due to respiratory disorder: Code(s): J98.9 - Respiratory disorder, unspecified; I46.8 - Cardiac arrest due to other underlying condition Status: Acute Assessment and Plan: * precipitated by respiratory distress/failure (from COPD + pulmonary embolism +/- pulmonary edema) * troponins mildly elevated but no EKG changes noted * Cardiology on the case (4) Sepsis: Code(s): A41.9 - Sepsis, unspecified organism Status: Acute Assessment and Plan: * resolving * due to bacteremia (source not clear) * UA suggestive of UTI but culture negative so far * CT of chest without evidence of pneumonia * blood cultures with Staph epidermis * on antibiotics (5) Pulmonary embolism: Qualifiers: Pulmonary embolism type: single subsegmental (without acute cor pulmonale) Qualified Code(s): I26.93 - Single subsegmental pulmonary embolism without acute cor pulmonale Code(s): I26.99 - Other pulmonary embolism without acute cor pulmonale Status: Acute Assessment and Plan: * as noted by CTA of chest * on Eliquis (6) Hypertension: Code(s): I10 - Essential (primary) hypertension Status: Chronic Assessment and Plan: * reasonable control. * continue current medications * follow trend of hemodynamics Not much else to add from renal perspective -- will continue to follow form a distance. Subjective Date/time seen: 04/18/24 10:32 Interval history: Follow-up for acute kidney injury/acute renal failure. Chart reviewed since I last saw her; fluctuating mentation has been noted in association with CO2 narcosis by ABGs; renal function remains stable if not better at this time; . Exam Narrative: General: large female in NAD Heart: normal S1 and S2; no rub Lungs: clear anteriorly; decreased at bases Abdomen: soft, nontender, nondistended, +BS; colostomy in place Extremities: trace to 1+ edema present Skin: warm and dry Objective Data Vital Signs Vital Signs: Vital Signs Temp Pulse Resp BP Pulse Ox O2 Del Method O2 Flow Rate
--- NOTE | 2024-04-18 10:32 | PM.PNNEP ---
Progress Note: A&P Assessment and Plan (1) NUNU (acute kidney injury): Code(s): N17.9 - Acute kidney failure, unspecified Status: Acute Assessment and Plan: slow improvement evaluation to date noted: urine electrolytes prerenal urine eosinophils negative mild proteinuria renal u/s and CT without obstruction - left kidney atrophy noted CPK normal suspect ATN with multifactorial etiology: respiratory + cardiac arrest previous hemodynamic instability/hypotension pre-renal factors(?) NSAID use prior to admission contrast exposure (CTA of chest) infection/sepsis (bacteremia) sosa malfunction (i.e. clogged) good urine output noted follow trend of labs and UOP (2) Acute on chronic respiratory failure with hypoxia and hypercapnia: Code(s): J96.21 - Acute and chronic respiratory failure with hypoxia; J96.22 - Acute and chronic respiratory failure with hypercapnia Status: Acute Assessment and Plan: acute issues better but still has substantial chronic respiratory failure continue BiPAP, incentive spirometer, and the rest of the supportive care for her lungs follow mentation given her propensity for CO2 narcosis on chronic home oxygen (3) Cardiac arrest due to respiratory disorder: Code(s): J98.9 - Respiratory disorder, unspecified; I46.8 - Cardiac arrest due to other underlying condition Status: Acute Assessment and Plan: precipitated by respiratory distress/failure (from COPD + pulmonary embolism +/- pulmonary edema) troponins mildly elevated but no EKG changes noted Cardiology on the case (4) Sepsis: Code(s): A41.9 - Sepsis, unspecified organism Status: Acute Assessment and Plan: resolving due to bacteremia (source not clear) UA suggestive of UTI but culture negative so far CT of chest without evidence of pneumonia blood cultures with Staph epidermis on antibiotics (5) Pulmonary embolism: Qualifiers: Pulmonary embolism type: single subsegmental (without acute cor pulmonale) Qualified Code(s): I26.93 - Single subsegmental pulmonary embolism without acute cor pulmonale Code(s): I26.99 - Other pulmonary embolism without acute cor pulmonale Status: Acute Assessment and Plan: as noted by CTA of chest on Eliquis (6) Hypertension: Code(s): I10 - Essential (primary) hypertension Status: Chronic Assessment and Plan: reasonable control. continue current medications follow trend of hemodynamics Not much else to add from renal perspective -- will continue to follow form a distance. Subjective Date/time seen: 04/18/24 10:32 Interval history: Follow-up for acute kidney injury/acute renal failure. Chart reviewed since I last saw her; fluctuating mentation has been noted in association with CO2 narcosis by ABGs; renal function remains stable if not better at this time; . Exam Narrative: General: large female in NAD Heart: normal S1 and S2; no rub Lungs: clear anteriorly; decreased at bases Abdomen: soft, nontender, nondistended, +BS; colostomy in place Extremities: trace to 1+ edema present Skin: warm and dry Objective Data Vital Signs Vital Signs: Vital Signs Temp Pulse Resp BP Pulse Ox O2 Del Method O2 Flow Rate 04/18/24 09:46 90 Nasal Cannula 4 04/18/24 09:47 100 04/18/24 09:42 128 H 16 131/96 H 88 L 04/18/24 08:14 85 20 04/18/24 07:52 108 H 20 04/18/24 07:52 95 Nasal Cannula 4 04/17/24 20:57 98 98 Nasal Cannula 4 04/18/24 04:00 98 04/18/24 03:08 86 20 04/18/24 03:02 84 20 04/18/24 00:00 85 04/17/24 23:50 95 96 04/17/24 23:54 97.3 F L 102 H 18 155/91 H 95 04/17/24 20:00 95 04/17/24 21:07 95 20 04/17/24 20:57 98 20 04/17/24 20:00 89 20 91 Nasal Cannula 4 04/17/24 16:00 94
--- NOTE | 2024-04-18 11:44 | PCNFU ---
Nutrition Follow-Up Complete: Suboptimal Energy Intake as related to mechanical ventilation as evidenced by NPO/Tube feedings. - Resolved Meet estimated nutritional needs. _ Meeting nutrition needs PO. Intakes 10-75%, improving Goal: Pt current nutrition is Heart healthy diet. Intakes 10-75%. Nutrition recommendation: No new nutrition recommendations. Continue with current nutrition care plan and orders Last recorded weight is 115.5 kg. Bowel Motility: +1 BM 04/14/24 Labs Reviewed: Hgb 10.1, Hct 33, GFR 46, BUN 29, Cre 1.2, Glu 150 Meds Noted: Eliquis, Lasix, Protonix Skin: No pressure injuries Additional Notes: Appetite fair to good, improving more consistently. Continue current nutrition care plan a orders. Agree with orders Will monitor weight, labs, skin, meds, tube feeding tolerance every Thursday and Thursday.
--- NOTE | 2024-04-18 16:00 | P.PNIM_ITS ---
Progress Note: A&P Assessment and Plan (1) Gout attack: Qualifiers: Gout site: toe Gout etiology: unspecified cause Laterality: left Qualified Code(s): M10.9 - Gout, unspecified Code(s): M10.9 - Gout, unspecified Status: Acute (2) Leukocytosis: Code(s): D72.829 - Elevated white blood cell count, unspecified Status: Acute (3) Hyperlipidemia: Code(s): E78.5 - Hyperlipidemia, unspecified Status: Acute (4) Hypertension: Code(s): I10 - Essential (primary) hypertension Status: Chronic (5) Obstructive sleep apnea treated with BiPAP: Code(s): G47.33 - Obstructive sleep apnea (adult) (pediatric) Status: Acute (6) Acute on chronic respiratory failure with hypoxia and hypercapnia: Code(s): J96.21 - Acute and chronic respiratory failure with hypoxia; J96.22 - Acute and chronic respiratory failure with hypercapnia Status: Acute (7) COPD exacerbation: Code(s): J44.1 - Chronic obstructive pulmonary disease with (acute) exacerbation Status: Acute (8) Pulmonary embolism: Qualifiers: Pulmonary embolism type: single subsegmental (without acute cor pulmonale) Qualified Code(s): I26.93 - Single subsegmental pulmonary embolism without acute cor pulmonale Code(s): I26.99 - Other pulmonary embolism without acute cor pulmonale Status: Acute (9) Cardiac arrest due to respiratory disorder: Code(s): J98.9 - Respiratory disorder, unspecified; I46.8 - Cardiac arrest due to other underlying condition Status: Acute (10) Transaminitis: Code(s): R74.01 - Elevation of levels of liver transaminase levels Status: Acute (11) Lactic acidosis: Code(s): E87.20 - Acidosis, unspecified Status: Acute (12) Sepsis: Code(s): A41.9 - Sepsis, unspecified organism Status: Acute (13) NUNU (acute kidney injury): Code(s): N17.9 - Acute kidney failure, unspecified Status: Acute Plan Ms. De Anda is a 63F with past medical history morbid obesity with BMI greater than 40, obstructive sleep apnea, chronic hypoxic and hypercarbic respiratory failure on chronic O2 and BiPAP, hyperlipidemia, atrial fibrillation, GERD, gout, vitamin-D deficiency, colostomy status post fistula surgery, chronic insomnia. She presented on 04/03/2024 to [facility] via EMS for witnessed respiratory distress followed by cardiac arrest. At home, she apparently was having breathing issues and asked her for her breathing machine. By the time the returned to the room she was unresponsive. EMS was called and the patient was noted to be in PEA arrest. She received several rounds of epinephrine in the field and had a laryngeal airway placed and was subsequently transferred to the ER. At the ER she was still pulseless and received additional rounds of bicarb and epinephrine and was subsequently intubated. Eventually she had return of spontaneous circulation and was placed on mechanical vent. ABG noted chronic hypercapnic respiratory failure CTA of chest demonstrated a small left lower lobe subsegmental pulmonary emboli with congestive changes concerning for pulmonary edema with a moderate right and small left pleural effusion. Patient was given bronchodilator therapy and steroids for presumed COPD exacerbation. Patient was noted to be hypotensive following intubation which improved with small IV fluid boluses. She was started on heparin infusion and admitted to the ICU on 04/03/2024. Family noted the patient had been in and out of hospitals recently for COPD exacerbations and UTIs. The patie
[2024-04-18] MEDS: traZODone HCL 50 MG TABLET PO (20:18)
[2024-04-18] MEDS: MELATONIN 5 MG TABLET PO (20:18)
[2024-04-18] MEDS: traMADol HCL (*CRX) 50 MG TABLET PO (20:18)
[2024-04-19] VITALS (14 sets, daily range): BP systolic 118–134; BP diastolic 67–87; PULSE 43–107; RESP 16–30; TEMP 35.8–36.8; O2SAT 94–100
--- NOTE | 2024-04-19 01:12 | PC.NURSE ---
Pt refused cpap. Pt states that she wants morphine and that she wants to be placed on hospice services. Provider aware, order received from Dr Stapleton to consult care coordination for hospice services.
[2024-04-19] MEDS: ALBUTEROL SULFATE NEB 2.5 MG/3 ML INH 5 MG INHALATION ×2 (02:19→08:10)
[2024-04-19] MEDS: IPRATROPIUM BR 0.02% INH SOLN 0.5 MG/2.5 ML VIAL INHALATION ×2 (02:19→08:10)
[2024-04-19] MEDS: SALINE LOCK FLUSH 10 ML IV PUSH ×2 (09:21→19:57)
[2024-04-19] MEDS: amLODIPine BESYLATE 10 MG TABLET PO (09:21)
[2024-04-19] MEDS: TOLNAFTATE 1% POWDER 45 GM BTL 1 APPLIC TOPICAL ×2 (09:21→19:57)
[2024-04-19] MEDS: APIXABAN 5 MG TABLET PO (09:22)
[2024-04-19] MEDS: ASPIRIN 81 MG ENTERIC TABLET PO (09:22)
[2024-04-19] MEDS: FUROSEMIDE 40 MG TABLET PO (09:22)
[2024-04-19] MEDS: ATORVASTATIN 20 MG TABLET PO (09:22)
[2024-04-19] MEDS: LINEZOLID 600 MG TABLET PO (09:22)
[2024-04-19] MEDS: traMADol HCL (*CRX) 50 MG TABLET PO (09:23)
[2024-04-19] MEDS: PANTOPRAZOLE 40 MG TABLET PO (09:23)
[2024-04-19] MEDS: METOPROLOL TARTRATE 50 MG TAB 100 MG PO (09:23)
[2024-04-19] MEDS: LOSARTAN POTASSIUM 50 MG TABLET 100 MG PO (09:23)
--- NOTE | 2024-04-19 11:30 | PM.IMPN ---
Progress Note: A&P Assessment and Plan (1) Gout attack: Qualifiers: Gout site: toe Gout etiology: unspecified cause Laterality: left Qualified Code(s): M10.9 - Gout, unspecified Code(s): M10.9 - Gout, unspecified Status: Acute (2) Leukocytosis: Code(s): D72.829 - Elevated white blood cell count, unspecified Status: Acute (3) Hyperlipidemia: Code(s): E78.5 - Hyperlipidemia, unspecified Status: Acute (4) Hypertension: Code(s): I10 - Essential (primary) hypertension Status: Chronic (5) Obstructive sleep apnea treated with BiPAP: Code(s): G47.33 - Obstructive sleep apnea (adult) (pediatric) Status: Acute (6) Acute on chronic respiratory failure with hypoxia and hypercapnia: Code(s): J96.21 - Acute and chronic respiratory failure with hypoxia; J96.22 - Acute and chronic respiratory failure with hypercapnia Status: Acute (7) COPD exacerbation: Code(s): J44.1 - Chronic obstructive pulmonary disease with (acute) exacerbation Status: Acute (8) Pulmonary embolism: Qualifiers: Pulmonary embolism type: single subsegmental (without acute cor pulmonale) Qualified Code(s): I26.93 - Single subsegmental pulmonary embolism without acute cor pulmonale Code(s): I26.99 - Other pulmonary embolism without acute cor pulmonale Status: Acute (9) Cardiac arrest due to respiratory disorder: Code(s): J98.9 - Respiratory disorder, unspecified; I46.8 - Cardiac arrest due to other underlying condition Status: Acute (10) Transaminitis: Code(s): R74.01 - Elevation of levels of liver transaminase levels Status: Acute (11) Lactic acidosis: Code(s): E87.20 - Acidosis, unspecified Status: Acute (12) Sepsis: Code(s): A41.9 - Sepsis, unspecified organism Status: Acute (13) NUNU (acute kidney injury): Code(s): N17.9 - Acute kidney failure, unspecified Status: Acute Plan Ms. De Anda is a 63F with past medical history morbid obesity with BMI greater than 40, obstructive sleep apnea, chronic hypoxic and hypercarbic respiratory failure on chronic O2 and BiPAP, hyperlipidemia, atrial fibrillation, GERD, gout, vitamin-D deficiency, colostomy status post fistula surgery, chronic insomnia. She presented on 04/03/2024 to [facility] via EMS for witnessed respiratory distress followed by cardiac arrest. At home, she apparently was having breathing issues and asked her for her breathing machine. By the time the returned to the room she was unresponsive. EMS was called and the patient was noted to be in PEA arrest. She received several rounds of epinephrine in the field and had a laryngeal airway placed and was subsequently transferred to the ER. At the ER she was still pulseless and received additional rounds of bicarb and epinephrine and was subsequently intubated. Eventually she had return of spontaneous circulation and was placed on mechanical vent. ABG noted chronic hypercapnic respiratory failure CTA of chest demonstrated a small left lower lobe subsegmental pulmonary emboli with congestive changes concerning for pulmonary edema with a moderate right and small left pleural effusion. Patient was given bronchodilator therapy and steroids for presumed COPD exacerbation. Patient was noted to be hypotensive following intubation which improved with small IV fluid boluses. She was started on heparin infusion and admitted to the ICU on 04/03/2024. Family noted the patient had been in and out of hospitals recently for COPD exacerbations and UTIs. The patient was successfully extubated on 04/07/2024. See below for individual problems Update on 04/18: Today, the patient is currently considering hospice versus rehab. Therefore, no changes in medical management. Care coordination is helping to arrange. Update on 04/19: Due to the patient's multiple refusals to wear noninv
[2024-04-19] MEDS: LORazepam INJ (*CRX) 2 MG/ML VIAL IV PUSH ×2 (14:16→18:47)
[2024-04-19] MEDS: MORPHINE SULFATE (*CRX) 2 MG/ML INJ IV PUSH ×2 (16:24→23:12)
[2024-04-20] MEDS: LORazepam INJ (*CRX) 2 MG/ML VIAL IV PUSH (01:33)
[2024-04-20] MEDS: ATROPINE SULFATE 1% OPHTH SOLN 5 ML BOTTLE SUBLINGUAL (03:50)
[2024-04-20] MEDS: MORPHINE SULFATE (*CRX) 2 MG/ML INJ IV PUSH ×3 (04:43→12:04)
[2024-04-20] MEDS: SALINE LOCK FLUSH 10 ML IV PUSH (04:45)
[2024-04-20 08:00] VITALS: BP 111/72; PULSE 66; RESP 20; TEMP 35.8; O2SAT 94
[2024-04-20] MEDS: TOLNAFTATE 1% POWDER 45 GM BTL 1 APPLIC TOPICAL (09:25)
--- NOTE | 2024-04-20 12:17 | PM.DS ---
DS: Admitting Diagnosis Discharge Date April 20, 2024 Admitting Diagnosis Cardiac arrest DS: Discharge Diagnosis Discharge Diagnosis (1) Hospice care: Code(s): Z51.5 - Encounter for palliative care Status: Acute (2) Cardiac arrest due to respiratory disorder: Code(s): J98.9 - Respiratory disorder, unspecified; I46.8 - Cardiac arrest due to other underlying condition Status: Acute DS: Summary Hospital Course Hospital Course: Ms. De Anda is a pleasant 63-year-old female with multiple chronic comorbidities including BMI greater than 40, morbid obesity, ANDREE noncompliant with noninvasive ventilator, chronic hypoxic and hypercarbic respiratory failure who presents to the hospital in cardiac arrest after respiratory failure. She was having shortness of breath at home and asked her to get her CPAP machine and by the time he went back into the room was unresponsive. EMS was summoned and the patient was found to be in PEA arrest, she received several rounds of epinephrine in the field with a laryngeal airway placed. In [facility] she was still pulseless and received additional epinephrine and bicarb. She was subsequently intubated with return of spontaneous circulation. Admitted on 04/03/2024 extubated successfully on 04/07/2024. Thereafter, the patient's multiple comorbidities were being medically managed. However, the patient began to develop return of hypercapnia and tachypnea with CO2 narcosis. She had been educated about the importance of noninvasive ventilator on multiple occasions by this mortgage loan underwriter as well as other medical staff. The patient, at her own will, decided she would not wear it anymore. Eventually, and son took over decision making as she was no longer competent. They decided to continue her wishes of not wearing the noninvasive ventilator and comfort care was pursued. She was placed on comfort care on 04/19/2024. She is discharged from the hospitalist service on 04/20/2024 for in-patient hospice program with [facility]. Her condition is terminal. She was DNR. Status at Discharge Overall status at discharge: patient is not back to baseline Time Spent with Patient Time attestation: Total time spent providing and/or coordinating discharge services: Time spent: Greater than 30 minutes Exam Const: Other: Confuse, transiently awake Eyes: Pupils: Equal, round and reactive pupils present Neck: Neck: supple Resp: Effort & Inspection: normal respiratory effort Auscultation: crackles Other: Tachypnea Cardio: Rate: regular rate Rhythm: regular rhythm GI: GI Palp: Yes Soft to palpation and No Tenderness to palpation present (GI) Extrem: General: edema Discharge Plan Discharge Attending physician on discharge: Rosalie Villa Consulting providers: Mumtaz Lowery; Syed Watson; Lb Molina; Aleksandr Aguilar Discharging Clinician: Rosalie Villa Patient Disposition: Hospice - Medical Facility Stand Alone Forms: General Discharge Information Discharge Medications: Discontinued atorvastatin 20 mg tablet 20 mg PO DAILY zolpidem 10 mg tablet 10 mg PO HS Complete Multivitamin Tablet 1 tablet PO DAILY cyclobenzaprine 10 mg Tablet 10 mg PO DAILY PRN (Reason: muscle relaxant) meloxicam 15 mg tablet 15 mg PO QAM tramadol 50 mg tablet 50 mg PO TID Xopenex HFA 2 inh PO Q4-5H PRN (Reason: sob) furosemide 40 mg tablet 40 mg PO DAILY metoprolol tartrate 50 mg tablet 50 mg PO BID albuterol sulfate 90 mcg/actuation HFA aerosol inhaler 2 puff INHALATION Q6H PRN (Reason: wheezing) fluticasone propionate 50 mcg/actuation spray,suspension 2 spray INTRANASAL DAILY Eliquis 5 mg tablet 5 mg PO BID Date of admission: 04/03/24 19:10 Primary Care Provider: JOSIE,JANET Admitting Provider: Ramon Parker Attending physician on admission: Freddy Parker
== END 2024-04-20 12:45 | disposition hospice, inpatient (51) | DRG 208 ==
LOC: ANHED 15:27 → ANHICU 20:15 → ANHIMU 04-09 11:03 → ANH2MED 04-12 02:06
PROVIDERS: Internal Medicine; Internal Medicine Nephrology; Admitting Provider Internal Medicine; Emergency Provider Emergency Medicine; PCP Nurse Practitioner Family; Visit Provider General Practice
DX: J96.21 Acute and chronic respiratory failure with hypoxia (principal); I46.8 Cardiac arrest due to other underlying condition; I26.93 Single subsegmental thrombotic pulmonary embolism without acute cor pulmonale; K72.00 Acute and subacute hepatic failure without coma; I50.31 Acute diastolic (congestive) heart failure; J44.1 Chronic obstructive pulmonary disease with (acute) exacerbation; Z68.42 Body mass index [BMI] 45.0-49.9, adult; R78.81 Bacteremia; N17.9 Acute kidney failure, unspecified; B95.7 Other staphylococcus as the cause of diseases classified elsewhere; T83.091A Other mechanical complication of indwelling urethral catheter, initial encounter; J96.22 Acute and chronic respiratory failure with hypercapnia; R53.1 Weakness; M10.9 Gout, unspecified; I11.0 Hypertensive heart disease with heart failure; G47.33 Obstructive sleep apnea (adult) (pediatric); R74.01 Elevation of levels of liver transaminase levels; E66.01 Morbid (severe) obesity due to excess calories; K21.9 Gastro-esophageal reflux disease without esophagitis; E78.5 Hyperlipidemia, unspecified; Z20.822 Contact with and (suspected) exposure to COVID-19; Z51.5 Encounter for palliative care; Z87.891 Personal history of nicotine dependence; Z99.81 Dependence on supplemental oxygen; Z66 Do not resuscitate
CPT/HCPCS: 31500; 36415; 36556; 36569; 36600; 70450; 71045; 71046; 71250; 71275; 73630; 74176; 76775; 80053; 80069; 80202; 81001; 81050; 82375; 82550; 82570; 82805; 82948; 83050; 83605; 83735; 83880; 84100; 84145; 84156; 84300; 84443; 84478; 84484; 84540; 84550; 85025; 85027; 85055; 85610; 85730; 85999; 87040; 87070; 87077; 87086; 87181; 87205; 87637; 87641; 92610; 92611; 92950; 93005; 93970; 94002; 94003; 94640; 94762; 96361; 96365; 96375; 97110; 97162; 97165; 97530; 97535; 99291; A9270; C1751; C8929; J0171; J0360; J0692; J1120; J1644; J1815; J1836; J1940; J2060; J2250; J2270; J2404; J2470; J2704; J2919; J3010; J3370; J3475; J7030; J7120; Q9957; Q9967

== ENCOUNTER 2024-04-20 12:46 | HOS | payer OTHER, BC, SELFPAY ==
--- NOTE | 2024-04-20 12:59 | ADMGEN ---
This patient, Isabel De Anda, was admitted to Medical Room 246-01. Patient/family oriented to hospital policies and general routines including ID bracelet, bed and alarms, visiting hours, pain management, procedures, bathroom and other care routines, personal items, smoking policy, room service/diet, and visiting hours. Information on how to activate the Rapid Response Team has been discussed. Patient/Family are encouraged to report perceived risks to care and to ask questions if they do not understand what they are told or what they should do.
[2024-04-20 13:01] VITALS: BMI 45.1
[2024-04-20] MEDS: MORPHINE SULFATE INJ (*CRX) 50 MG in SODIUM CHLORIDE 0.9% IV 95 ML IV CONT (14:15)
[2024-04-20] MEDS: LORazepam INJ (*CRX) 2 MG/ML VIAL 1 MG IV PUSH (16:30)
--- NOTE | 2024-04-20 16:43 | PM.IMHP ---
H&P: HPI History of Present Illness Date/Time: 04/20/24 16:43 Chief Complaint: Uncontrolled dyspnea Narrative: This unfortunate 63-year-old female has a history of COPD, sleep apnea, morbid obesity. On April 03 she stop breathing and 911 was called. No CPR was performed until paramedics arrived. She was found to be in PE a. CPR was initiated and normal sinus rhythm was obtained. Upon presentation to the emergency room she was found to be in atrial fibrillation with rapid ventricular rate. CTA of the chest revealed scattered subsegmental pulmonary emboli. She was anticoagulated. Treated with broad-spectrum antibiotics. Acute kidney injury that resolved almost to baseline. She was initially ventilated. She was weaned from ventilator but did not tolerate noninvasive ventilation. She does pass a swallowing test. She refused noninvasive ventilation finally. Because of this she and her spouse who is her power of estate attorney opted for comfort measures. Because her dyspnea was severe she was panting without the noninvasive ventilator she was admitted inpatient hospice services for symptom management. Since initiation of morphine drip at 1 milligram/hour earlier today she has remained comfortable. Review of Systems Review of Systems: ROS unobtainable: Yes unobtainable due to medical condition PMFSH Past Medical History Medical History COPD (chronic obstructive pulmonary disease) GERD (gastroesophageal reflux disease) Gout attack Hyperlipidemia Hypertension Insomnia Morbid obesity Obstructive sleep apnea treated with BiPAP Tobacco abuse disorder Vitamin D deficiency Surgical History Surgical History History of arthroscopy of both knees History of ileostomy (~2021) due to fistula repair and she chose not to reverse ostomy History of oral surgery (07/2020) Excision of cyst from the hard palate History of total abdominal hysterectomy and bilateral salpingo-oophorectomy (~1996) Family History Family History Mother Diabetes mellitus Hypertension Hyperlipidemia Father Medical history unknown Social History Social History (Updated 04/20/24 @ 16:44 by Yonas Carter MD) Social History: The patient is . She smoked 1.5 packs per day since she was a teenager but quit December 2023. She has no known history of alcohol use or illicit substance use. She has 1 son. Code status: DNR Surrogate decision maker: Smoking packs per day: 2 Smoking cigarettes per day: 40.0 Years smoked: 45 Smoking pack-years: 90.00 Smoking status: Former smoker Tobacco type: cigarettes Second hand tobacco smoke exposure: Yes Smoking end date: 01/29/24 Alcohol intake: never Substance use: never Spiritual care concerns: No Meds Home Medications and Allergies Home Medications Medication Instructions Recorded Confirmed Type atorvastatin 20 mg tablet 20 mg PO DAILY 06/11/20 04/03/24 History multivitamin,uo-jzxk-dddgiugb 1 tablet PO DAILY 06/11/20 04/03/24 History (Complete Multivitamin tablet) zolpidem 10 mg tablet 10 mg PO HS 06/11/20 04/03/24 History Xopenex HFA 2 inh PO Q4-5H PRN sob 04/03/24 04/03/24 History cyclobenzaprine 10 mg tablet 10 mg PO DAILY PRN muscle relaxant 04/03/24 04/03/24 History meloxicam 15 mg tablet 15 mg PO QAM 04/03/24 04/03/24 History tramadol 50 mg tablet 50 mg PO TID 04/03/24 04/03/24 History albuterol sulfate 90 mcg/actuation 2 puff inhalation Q6H PRN wheezing 04/08/24 04/08/24 History aerosol inhaler apixaban 5 mg tablet (Eliquis) 5 mg PO BID 04/08/24 04/08/24 History fluticasone propionate 50 2 spray intranasal DAILY 04/08/24 04/08/24 History mcg/actuation nasal spray,suspension furosemide 40 mg tablet 40 mg PO DAILY 04/08/24 04/08/24 History metoprolol tartrate 50 mg tablet 50 mg PO BID
[2024-04-20] MEDS: GLYCOPYRROLATE INJ (*SP) 0.2 MG/ML VIAL 0.1 MG IV PUSH (21:14)
[2024-04-20] MEDS: MORPHINE SULFATE (*CRX) 2 MG/ML INJ IV PUSH (21:15)
[2024-04-20 21:18] VITALS: BP 125/72; PULSE 136; RESP 12; TEMP 36.8; O2SAT 89
--- NOTE | 2024-04-21 12:34 | P.DN_ITS ---
Discharge Summary Date and Time Date of : 04/21/24 Time of : 01:30 Provider Pronounced By: 2 RNs Name of First RN That Pronounced: Megna Box RN Name of Second RN That Pronounced: Angelika Marinelli RN Probable Cause of Probable Cause of : Acute on chronic respiratory failure due to pulmonary emboli and underlying COPD Summary Hospital Course: Admitted to inpatient hospice service due to uncontrolled dyspnea. Medications were titrated to comfort. Mrs. De Anda peacefully. Additional Data Confirmation of as documented by pronouncing clinician: Pupillary Reflex, Palpable Pulses, Response to Stimuli, Heart Tones and Breath Sounds Name of Provider Notified: Raul Time Provider Notified: 01:38 Family Requests Autopsy: No Document Control Clerk Notified: Yes Date [facility] Notified of : 04/21/24 Time [facility] Notified of : 01:45
== END 2024-04-21 01:30 | disposition expired | DRG 951 ==
PROVIDERS: Admitting Provider Internal Medicine; PCP Nurse Practitioner Family; Visit Provider Internal Medicine
DX: Z51.5 Encounter for palliative care (principal); J96.21 Acute and chronic respiratory failure with hypoxia; J96.22 Acute and chronic respiratory failure with hypercapnia; I26.93 Single subsegmental thrombotic pulmonary embolism without acute cor pulmonale; N17.9 Acute kidney failure, unspecified; E66.01 Morbid (severe) obesity due to excess calories; E78.5 Hyperlipidemia, unspecified; E55.9 Vitamin D deficiency, unspecified; G47.33 Obstructive sleep apnea (adult) (pediatric); I46.8 Cardiac arrest due to other underlying condition; I10 Essential (primary) hypertension; I48.91 Unspecified atrial fibrillation; J44.1 Chronic obstructive pulmonary disease with (acute) exacerbation; K21.9 Gastro-esophageal reflux disease without esophagitis; Z87.891 Personal history of nicotine dependence; Z66 Do not resuscitate; Z79.01 Long term (current) use of anticoagulants; Z88.0 Allergy status to penicillin
CPT/HCPCS: A9270; J1596; J2060; J2270